=== PATIENT | female | born 1945 | race Caucasian/White ===

== ENCOUNTER → 2023-06-12 07:06 | Outpatient (REF) | payer MEDICARE, OTHER, SELFPAY ==
[2023-06-12 09:07] LABS: ALT (SGPT) 19 U/L (0-35); AST (SGOT) 24 U/L (14-36); Albumin 4.2 g/dl (3.5-5.0); Alkaline Phosphatase 72 U/L (38-126); Blood Urea Nitrogen 17 mg/dl (7-17); Calcium 9.6 mg/dl (8.4-10.2); Carbon Dioxide 28 mmol/L (22-30); Chloride 102 mmol/L (98-107); Glucose 113 mg/dl (70-99); HDL Cholesterol 70 mg/dl; LDL Cholesterol, Calculated 60 mg/dl; Potassium 4.5 mmol/L (3.5-5.1); Sodium 138 mmol/L (135-145); Total Bilirubin 0.7 mg/dl (0.2-1.3); Total Cholesterol 158 mg/dl (50-199); Total Protein 6.7 g/dl (6.3-8.2); Triglyceride 141 mg/dl (10-149); Very Low Density Lipoprotein 28 mg/dl (0-30); eGFR > 60.00
[2023-06-12 09:34] LABS: Glycohemoglobin (HgbA1c) 5.7 % (4.0-5.6)
== END ==
LOC: RAD 07:06
PROVIDERS: ATTENDING PHYSICIAN Family Medicine
DX: M79.672 Pain in left foot (principal); R73.01 Impaired fasting glucose; E78.2 Mixed hyperlipidemia
CPT/HCPCS: 36415; 73630; 80053; 80061; 83036

== ENCOUNTER 2023-09-25 14:48 | Emergency (ER) | payer MEDICARE, OTHER, SELFPAY ==
[2023-09-25 14:49] VITALS: BP 148/80
--- NOTE | 2023-09-25 15:44 | ED.GENMED ---
History of Present Illness
General
Chief Complaint: Abdominal Pain
Source: patient and spouse
Time Seen by Provider: 09/25/23 15:23
Travel History
Have you had any contact with someone who has COVID-19?: No
Do you have any symptoms of coronavirus? Fever > 100 degrees, chills, cough, shortness of breath, sore throat, loss of taste or smell, muscle aches, or headache?: No
History of Present Illness
History of Present Illness:
This patient is a 78-year-old female presents emergency department complaints of pain in the left mid quadrant that started yesterday and continues today. This is associated with nausea but denies vomiting, chills, chest pain, shortness of breath,
new back pain, urinary symptoms. She does state that she feels constipated although she did have a small bowel movement today after taking laxatives. She denies black stool or blood in her stool. She describes the pain as 'shooting' lasting just
a few seconds and then going away. This is unpredictable, without specific provoking or relieving factors. She notes that she is due to get a colonoscopy in a few weeks and does recall a history of diverticulosis.
Past History
Past History
ED Past Medical History: GERD, Hypercholesterolemia and Other (Arthritis)
ED Past Surgical History: Cholecystectomy, Gynecological and Orthopedic (Right knee replacment)
Social History
Tobacco: Non-smoker
Alcohol: None
Drug: None
Personal:
Living: with family
Family History
Family History: Other (Noncontributory)
Phy Exam
Physical Exam
Physical Exam:
GENERAL: Alert , in no apparent distress
EYE: pupils equal and reactive
NECK: Supple, no significant adenopathy.
ENT: o/p clr, mmm.
CARDIAC: Regular rate and rhythm .
LUNGS: Clear breath sounds bilaterally, no acute respiratory distress, no wheezes/rales/rhonchi
ABDOMEN: Soft, moderate left mid and lower quadrant tenderness, no r/g, no cvat
NEUROLOGICAL: Alert and oriented, no focal neuro deficits
SKIN: Warm and dry, skin intact.
MUSCULOSKELETAL: No edema, well perfused.
PSYCH: Normal and appropriate interaction.
Course
Orders/Labs/Results
Orders:
Orders
09/25/23 15:44
CT Abd/Pel (IV only)-DH only Urgent
Comment:
Reason For Exam: lmq/llq abd pain
09/25/23 15:51
Complete Blood Count/No Diff Urgent
Comprehensive Metabolic Panel Urgent
Lipase Urgent
09/25/23 17:29
Urinalysis Reflex To Culture Urgent
Date Specimen was Collected: 09/25/23
Time Specimen was Collected: 17:05
09/25/23 18:06
LevoFLOXacin [Levaquin] 750 mg PO NOW STA
MetroNIDAZOLE [Flagyl] 500 mg PO NOW STA
Abnormal Lab Results
09/25/23 09/25/23
15:51 17:29
MCH 31.4 H pg
(27.0-31.0)
Glucose 101 H mg/dl
(70-99)
Urine Ketones 1+ A
(Negative)
09/25/23 15:51
09/25/23 15:51
Vital Signs
Initial and Last Documented VS:
Initial Vital Signs
Temp Pulse Resp BP Pulse Ox
99.0 F 95 20 148/80 97
09/25/23 14:49 09/25/23 14:49 09/25/23 14:49 09/25/23 14:49 09/25/23 14:49
Last Documented Vital Signs
Temp Pulse Resp BP Pulse Ox
99.0 F 95 20 148/80 97
09/25/23 14:49 09/25/23 14:49 09/25/23 14:49 09/25/23 14:49 09/25/23 14:49
*Critical Care Note
Total Time (30-74mins, 75-104mins- exclusive of procedures): Not Applicable
Update Note
Update Note:
Patient presents to the Emergency Department with ___abdominal pain and
Number and Complexity of Problems Addressed at the Encounter
� Chronic conditions affecting care:
� Acute Exacerbation and/or Progression of Chronic Illness:
� Differential Diagnosis includes: But not limited to diverticulitis, kidney stone, colitis, constipation, etc. etc.
Amount and/or Complexity of Data to be Reviewed and Analyzed
� I performed an independent evaluation of and my interpretation is:
EKG:
CT:Acute uncomplicated diverticulitis of the descending colon.
Xrays:
Laboratory Studies:unremarkable
Other:
� Review of other/old records reveals:
� Clinical information was obtained by an independent historian:
� Prescriptions/Medications Considered but not given:
� Further testing considered but not performed:
Risk of Complications and/or Morbidity or Mortality of Patient Management
� Social determinants of health affecting care:
� Discussion with other providers (PCP, Hospitalists, Consultants, etc):
� Escalation of care including admission/observation vs risk of discharge considered: Discussed with patient and her diagnosis, management plan, reasons to return to the ER, and importance of GI follow-up including
diagrams. Patient eager to go home and can take p.o. medications.
ED Attending Note
-
Portions of this chart may have been created with voice recognition software.� Occasional wrong word or��sound alike� substitutions may have occurred due to the inherent limitations of voice recognition software.
Discharge Plan
Departure
Patient Disposition: Home (Routine Discharge)
Date of Disposition: 09/25/23
Time of Disposition: 18:07
Patient with high blood pressure during this ER visit?: Yes
Condition: Good
Discharge Problem:
Diverticulitis
Instructions: Diverticulitis (DC), BLOOD PRESSURE
Prescriptions:
New
levofloxacin 750 mg tablet
750 mg PO DAILY 10 Days Qty: 10 0RF
metronidazole 500 mg tablet
500 mg PO TID Qty: 30 0RF
No Action
rosuvastatin 10 MG tablet
10 mg PO QPM
doxycycline hyclate 50 MG capsule
50 mg PO DAILY
omeprazole 40 MG capsule,delayed release(DR/EC)
40 mg PO DAILY
estradiol [Divigel] 1 GM gel in packet
1 applic VAG SUWE
melatonin 5 MG tablet
10 mg PO HS
cannabidiol [Epidiolex] 1 UNIT solution
1 unit PO HS PRN (Reason: SLEEP)
mupirocin 1 APPLIC ointment
1 applic intranasal BID Qty: 1 0RF
Patient Comments:
pt states she started as ordered 01/27 and did own dose this am at 0530
sennosides [senna] 1 TABLET tablet
2 tab PO BID 0RF
lidocaine [Aspercreme (lidocaine)] 1 PATCH adhesive patch,medicated
2 patch topical DAILY Qty: 14 0RF
Rx Instructions:
Over the counter. Remove nightly.
Apply to sides of right knee. Do not place over incision.
aspirin 325 MG tablet
325 mg PO DAILY Qty: 28 0RF
Rx Instructions:
Take daily x4 weeks for blood clot prevention.
diazepam 2 MG tablet
2 mg PO HSPRN PRN (Reason: insomnia) Qty: 7 0RF
Rx Instructions:
Caution with Tramadol - can cause drowsiness.
docusate sodium 100 MG capsule
100 mg PO BID 0RF
tramadol 50 MG tablet
50 mg PO Q6HPRN PRN (Reason: moderate-severe pain) Qty: 30 0RF
Rx Instructions:
1 tab moderate pain or 2 if pain severe
Dx joint replacement
ongoing therapy
celecoxib 200 MG capsule
200 mg PO DAILY Qty: 30 0RF
Rx Instructions:
Take with food.
Do not take within 2 hours of Aspirin.
ondansetron HCl 4 MG tablet
4 mg PO Q6HPRN PRN (Reason: nausea) Qty: 20 0RF
Rx Instructions:
Take 1/2 hour prior to Tramadol if experiencing recurrent nausea.
acetaminophen 650 MG tablet
1,300 mg PO Q8H Qty: 30 0RF
Rx Instructions:
Do not exceed >4000 mg daily.
ascorbic acid (vitamin C) [Vitamin C] 500 MG tablet
1,000 mg PO BID Qty: 56 0RF
zinc sulfate 220 MG capsule
220 mg PO DAILY Qty: 14 0RF
cholecalciferol (vitamin D3) 1,000 UNITS tablet
2,000 units PO DAILY Qty: 28 0RF
tramadol 50 mg tablet
50 mg PO Q8H PRN (Reason: Pain) Qty: 20 0RF
Referrals:
Brock Pond DO [Family Provider] -
Activity Restrictions/Additional Instructions:
PLEASE CONTACT YOUR GI DOCTOR TOMORROW FOR CLOSE FOLLOW-UP. IF YOU DEVELOP VOMITING, FEVER, CHEST PAIN, INCREASING NEW OR PERSISTENT ABDOMINAL PAIN, BLEEDING, OR OTHER WORRISOME SIGNS, PLEASE RETURN TO THE ER IMMEDIATELY.
Interventions
Interventions:
*Risk Screen - Suicide Last Done: 09/25/23 14:49
*General Assessment Last Done: 09/25/23 14:49
*Neglect/Abuse Screening Last Done: 09/25/23 14:49
*ED COVID-19 Vaccine History Last Done: 09/25/23 15:55
YY-Fcwfir-Fnrqygjxbp Assessment Last Done: 09/25/23 15:55
Discharge Date and Time
Print Language: BURKINAN
[2023-09-25 16:04] LABS: Hematocrit 38.5 % (37.0-47.0); Hemoglobin 13.3 g/dL (12.0-16.0); Mean Corp Hgb Conc. 34.5 g/dL (33.0-37.0); Mean Corpuscular Hgb 31.4 pg (27.0-31.0); Mean Corpuscular Volume 90.8 fL (81.0-99.0); Mean Platelet Volume 9.4 fL (7.4-10.4); Platelet Count 207 10^3/uL (130-400); Red Blood Cell Count 4.24 10^6/uL (4.20-5.40); Red Cell Dist. Width 14.3 % (11.5-14.5); White Blood Cell Count 9.3 10^3/uL (4.8-10.8)
[2023-09-25 16:18] LABS: ALT (SGPT) 20 U/L (0-35); AST (SGOT) 31 U/L (14-36); Albumin 4.4 g/dl (3.5-5.0); Alkaline Phosphatase 73 U/L (38-126); Blood Urea Nitrogen 13 mg/dl (7-17); Calcium 9.6 mg/dl (8.4-10.2); Carbon Dioxide 24 mmol/L (22-30); Chloride 103 mmol/L (98-107); Glucose 101 mg/dl (70-99); Lipase 46 U/L (23-300); Potassium 4.4 mmol/L (3.5-5.1); Sodium 135 mmol/L (135-145); Total Bilirubin 0.8 mg/dl (0.2-1.3); Total Protein 7.1 g/dl (6.3-8.2); eGFR > 60.00
[2023-09-25 17:35] LABS: Urine Albumin Negative (Neg - Trace); Urine Bilirubin Negative (Negative); Urine Character Clear (Clear); Urine Color Yellow; Urine Glucose Negative (Negative); Urine Ketone 1+ (Negative); Urine Leukocyte Negative (Negative); Urine Nitrite Negative (Negative); Urine Occult Blood Negative (Negative); Urine Urobilinogen Negative (Neg - 1+)
[2023-09-25] MEDS: FLAGYL 500 MG PO (18:27)
[2023-09-25] MEDS: LEVAQUIN 750 MG PO (18:27)
[2023-09-25 18:32] VITALS: BP 116/52
== END 2023-09-25 18:37 | disposition home or self-care (01) ==
LOC: EMR 14:48
PROVIDERS: EMERGENCY PHYSICIAN Emergency Medicine; FAMILY PHYSICIAN Family Medicine
DX: K57.32 Diverticulitis of large intestine without perforation or abscess without bleeding (principal); R03.0 Elevated blood-pressure reading, without diagnosis of hypertension
CPT/HCPCS: 99285; 74177; 80053; 81003; 83690; 85027; Q9967

== ENCOUNTER → 2023-09-30 13:36 | Outpatient (REF) | payer MEDICARE, OTHER, SELFPAY | LOC: RCS 13:36 | PROVIDERS: ATTENDING PHYSICIAN Internal Medicine Cardiovascular Disease; FAMILY PHYSICIAN Family Medicine | DX: I34.0 Nonrheumatic mitral (valve) insufficiency (principal); R53.83 Other fatigue | CPT/HCPCS: 93306 ==

== ENCOUNTER → 2023-10-17 09:56 | Outpatient (REF) | payer MEDICARE, OTHER, SELFPAY | LOC: HWRAD 09:56 | PROVIDERS: ATTENDING PHYSICIAN Internal Medicine Gastroenterology; FAMILY PHYSICIAN Family Medicine | DX: K57.92 Diverticulitis of intestine, part unspecified, without perforation or abscess without bleeding (principal) | CPT/HCPCS: 74177; Q9967 ==

== ENCOUNTER 2023-11-07 11:37 | Emergency (ER) | payer MEDICARE, OTHER, SELFPAY ==
[2023-11-07 11:39] VITALS: BP 164/74
[2023-11-07 11:47] LABS: Glucose - Point of Care 105 mg/dl (70-99)
[2023-11-07 12:31] VITALS: BP 135/64
[2023-11-07 12:43] LABS: Hematocrit 38.2 % (37.0-47.0); Hemoglobin 12.8 g/dL (12.0-16.0); Mean Corp Hgb Conc. 33.5 g/dL (33.0-37.0); Mean Corpuscular Hgb 30.8 pg (27.0-31.0); Mean Platelet Volume 9.2 fL (7.4-10.4); Platelet Count 194 10^3/uL (130-400); Red Blood Cell Count 4.15 10^6/uL (4.20-5.40); Red Cell Dist. Width 13.4 % (11.5-14.5); White Blood Cell Count 6.2 10^3/uL (4.8-10.8)
[2023-11-07 13:00] VITALS: BP 128/67
[2023-11-07 13:07] LABS: ALT (SGPT) 18 U/L (0-35); AST (SGOT) 26 U/L (14-36); Albumin 4.5 g/dl (3.5-5.0); Alkaline Phosphatase 86 U/L (38-126); Blood Urea Nitrogen 16 mg/dl (7-17); Calcium 9.6 mg/dl (8.4-10.2); Carbon Dioxide 26 mmol/L (22-30); Chloride 104 mmol/L (98-107); Glucose 110 mg/dl (70-99); Potassium 4.2 mmol/L (3.5-5.1); Sodium 135 mmol/L (135-145); Total Bilirubin 0.5 mg/dl (0.2-1.3); eGFR > 60.00
--- NOTE | 2023-11-07 13:48 | ED.GENMED ---
History of Present Illness
General
Chief Complaint: Dizziness
Source: patient and spouse
Exam Limitations: none
Time Seen by Provider: 11/07/23 12:51
Nursing documentation reviewed up to this point in time: agreed with
History of Present Illness
History of Present Illness:
78-year-old female with past medical history of hyperlipidemia, chronic pain (she says related to arthritis) who presents for evaluation of headache, dizziness, visual disturbance. Patient reports that she was in her normal state of health until
just prior to arrival�she says that she was sitting in the car waiting for her to come out of the store. She says that she had rather abrupt onset of visual disturbance in the left eye�she says that she had a dark spot in her vision. She
says that she had associated bilateral temporal headache. She says she began to feel dizzy. She says that she felt numbness and tingling in her left arm. She did not notice any weakness in the extremities. She says that when her came out
of the store she asked him to bring her to the hospital. Total duration of the episode was roughly an hour. By the time of my assessment she says her symptoms have resolved. She denies having had similar symptoms in the past. She denies any
history of jaw claudication. She denies any recent fevers or chills. She denies any other complaints today.
Past History
Past History
ED Past Medical History: GERD, Hypercholesterolemia and Other (Arthritis)
ED Past Surgical History: Cholecystectomy, Gynecological and Orthopedic (Right knee replacment)
Social History
Tobacco: Non-smoker
Alcohol: None
Drug: None
Personal:
Living: with family
Family History
Family History: Other (Noncontributory)
Review of Systems
Review of Systems
All Other Systems: ROS reviewed and negative except as documented in HPI and ROS
Constitutional: Denies fever or chills
EENT: Denies sore throat or runny nose
Respiratory: Denies cough or trouble breathing
Cardiac: Denies chest pain or palpitations
ABD/GI: Denies abdominal pain, nausea or vomiting
: Denies flank pain
Musculoskeletal: Reports joint pain (Chronic) and neck pain (Chronic)
Neurological: Reports dizzy, headache, numbness and other (Visual disturbance); Denies weakness
Phy Exam
Physical Exam
Physical Exam:
General: Awake, alert, oriented x3; no acute distress
Head: Normocephalic, atraumatic
Eyes: Conjunctiva normal, EOMI, pupils equal round and reactive to light bilaterally, visual flores are intact
Throat: Airway intact, handling secretions
Neck: Trachea midline, full range of motion of neck, supple without meningismus
Lungs: Clear to auscultation bilaterally, no wheezing, rales, rhonchi
Heart: Regular rate and rhythm, no murmurs, gallops, or rubs
Abd: Soft, non distended, nontender
Neuro: Cranial nerves intact 2 through 12, speech fluent no dysarthria or aphasia, no limb ataxia, motor and sensory function intact and symmetric upper and lower extremities
Skin: no rash
Extremities: No edema in extremities, equal pulses in all extremities
Scores
NIH Stroke Score
Level of Consciousness: 0 - Alert
LOC Questions: 0-Answers both correctly
LOC Commands: 0-Performs both correctly
Best Horizontal Gaze: 0-Normal
Visual Flores: 0=Normal, no visual loss
Facial Palsy: 0=Normal, symmetrical
Motor - Right Arm: 0=No drift 10 seconds
Motor - Left Arm: 0=No drift 10 seconds
Motor - Right Le-No drift 5 seconds
Motor - Left Le-No drift 5 seconds
Limb Ataxia: 0-Absent
Sensation: 0-Normal
Best Language: 0-No aphasia
Dysarthria: 0-Normal
Extinction and Inattention: 0-No abnormality
Total Score:: 0
Heart Failure Risk
Heart Failure Risk Score: Not Applicable
Heart Score for Chest Pain Patients
STEMI patient?: Not applicable
Withdrawal Assessment of Alcohol
Withdrawal Assessment Completed?: Not applicable
Course
Orders/Labs/Results
Orders:
Orders
11/07/23 11:42
Electrocardiogram (*1) Urgent
Reason for Study: Vertigo / Dizzy
EKG- Treatment ONCE
11/07/23 12:35
Complete Blood Count/No Diff Urgent
Comprehensive Metabolic Panel Urgent
11/07/23 13:42
CT Head W/o Iv Contrast Urgent
Comment:
Reason For Exam: visual disturbance (?central scotoma), LUE numbnes
Visual Acuity- Treatment ONCE
11/07/23 13:49
ESR [Erythrocyte Sed Rate] Urgent
Lyme PCR, DNA [S] Urgent
11/07/23 13:55
Ketorolac [Toradol] 15 mg IV NOW STA
11/07/23 14:29
Valproate Sodium [Depacon] 500 mg 0.9% Sodium Chloride 50 ml [Nss] 50 ml IV NOW
Abnormal Lab Results
11/07/23 11/07/23
11:46 12:35
RBC 4.15 L 10^6/uL
(4.20-5.40)
Glucose 110 H mg/dl
(70-99)
POC Glucose 105 H mg/dl
(70-99)
11/07/23 12:35
11/07/23 12:35
Vital Signs
Initial and Last Documented VS:
Initial Vital Signs
Temp Pulse Resp BP Pulse Ox
36.9 C 72 18 164/74 98
11/07/23 11:39 11/07/23 11:39 11/07/23 11:39 11/07/23 11:39 11/07/23 11:39
Last Documented Vital Signs
Temp Pulse Resp BP Pulse Ox
36.9 C 75 18 141/79 97
11/07/23 11:39 11/07/23 16:00 11/07/23 16:00 11/07/23 16:00 11/07/23 16:00
MDM/Problems Addressed
Differential Diagnosis Includes:
TIA/CVA, migraine, seizure, temporal arteritis, brain mass, hemorrhage
MDM/Problems Addressed:
78-year-old female presents for evaluation after an episode of visual disturbance, headache, dizziness and left upper extremity paresthesias that lasted for about an hour and have completely resolved. She was hypertensive in triage vital signs
normalized by my assessment. Physical exam as above. Plan to place an IV check labs including a CBC and a CMP. Will check CT head. Check an ESR. Check an EKG. Case discussed with neurology for assessment.
Labs reviewed: CBC and CMP unremarkable. ESR normal. CT head negative for any acute pathology. Neurology evaluated patient, discussed with neurology at bedside�clinical suspicion is for migraine. Recommended treating with Depakote and if
improved can discharge on amitriptyline.
Clinical reassessment after Depakote patient says headache has greatly improved she is feeling much better after ED treatment. Vital signs stable. Will discharge on amitriptyline and have her follow-up with neurology and PCP as an outpatient.
Patient is very comfortable with this plan.
Acute Exacerbation and/or Progression of Chronic Illness:
Acutely hypertensive resolved without intervention continue to monitor but no additional antihypertensive indicated at present
Acute Exacerbation and/or Progression of Chronic Illness: HTN
*Radiology
Radiology exam reviewed: radiology read reviewed
*Pulse Oximetry
Patient hypoxic: no
*EKG
Interpreted by ED Provider?: Yes
Heart Rate: 68
Rate: normal
Rhythm: sinus
Story: normal axis
Interval: normal interval
QRS Pattern: normal QRS
Ischemia: no ischemia
*Critical Care Note
Total Time (30-74mins, 75-104mins- exclusive of procedures): Not Applicable
Data Reviewed
Review of Other/Old Records Reveals: Labs and Records
Source: patient, records and spouse
Patient Management
Discussion with other providers: [employer]ing Machine Tender (Discussed with neurologist)
ED Attending Note
-
Portions of this chart may have been created with voice recognition software.� Occasional wrong word or��sound alike� substitutions may have occurred due to the inherent limitations of voice recognition software.
Discharge Plan
Departure
Patient Disposition: Home (Routine Discharge)
Date of Disposition: 11/07/23
Time of Disposition: 16:12
Patient with high blood pressure during this ER visit?: Yes
Discharge Problem:
Migraine
Instructions: Migraine in adults
Prescriptions:
New
amitriptyline 10 mg tablet
10 mg PO DAILY Qty: 30 0RF
No Action
rosuvastatin 10 MG tablet
10 mg PO QPM
doxycycline hyclate 50 MG capsule
50 mg PO DAILY
omeprazole 40 MG capsule,delayed release(DR/EC)
40 mg PO DAILY
estradiol [Divigel] 1 GM gel in packet
1 applic VAG SUWE
melatonin 5 MG tablet
10 mg PO HS
cannabidiol [Epidiolex] 1 UNIT solution
1 unit PO HS PRN (Reason: SLEEP)
mupirocin 1 APPLIC ointment
1 applic intranasal BID Qty: 1 0RF
Patient Comments:
pt states she started as ordered 01/27 and did own dose this am at 0530
sennosides [senna] 1 TABLET tablet
2 tab PO BID 0RF
lidocaine [Aspercreme (lidocaine)] 1 PATCH adhesive patch,medicated
2 patch topical DAILY Qty: 14 0RF
Rx Instructions:
Over the counter. Remove nightly.
Apply to sides of right knee. Do not place over incision.
aspirin 325 MG tablet
325 mg PO DAILY Qty: 28 0RF
Rx Instructions:
Take daily x4 weeks for blood clot prevention.
diazepam 2 MG tablet
2 mg PO HSPRN PRN (Reason: insomnia) Qty: 7 0RF
Rx Instructions:
Caution with Tramadol - can cause drowsiness.
docusate sodium 100 MG capsule
100 mg PO BID 0RF
tramadol 50 MG tablet
50 mg PO Q6HPRN PRN (Reason: moderate-severe pain) Qty: 30 0RF
Rx Instructions:
1 tab moderate pain or 2 if pain severe
Dx joint replacement
ongoing therapy
celecoxib 200 MG capsule
200 mg PO DAILY Qty: 30 0RF
Rx Instructions:
Take with food.
Do not take within 2 hours of Aspirin.
ondansetron HCl 4 MG tablet
4 mg PO Q6HPRN PRN (Reason: nausea) Qty: 20 0RF
Rx Instructions:
Take 1/2 hour prior to Tramadol if experiencing recurrent nausea.
acetaminophen 650 MG tablet
1,300 mg PO Q8H Qty: 30 0RF
Rx Instructions:
Do not exceed >4000 mg daily.
ascorbic acid (vitamin C) [Vitamin C] 500 MG tablet
1,000 mg PO BID Qty: 56 0RF
zinc sulfate 220 MG capsule
220 mg PO DAILY Qty: 14 0RF
cholecalciferol (vitamin D3) 1,000 UNITS tablet
2,000 units PO DAILY Qty: 28 0RF
tramadol 50 mg tablet
50 mg PO Q8H PRN (Reason: Pain) Qty: 20 0RF
levofloxacin 750 mg tablet
750 mg PO DAILY 10 Days Qty: 10 0RF
metronidazole 500 mg tablet
500 mg PO TID Qty: 30 0RF
Referrals:
Brock Pond DO [Family Provider] -
Cj Garza MD [Active] - Call in 1-3 days for appt
Activity Restrictions/Additional Instructions:
Thank you for visiting the Emergency Department at [facility].
1. Please schedule a follow up appointment as directed. Call first thing tomorrow morning to make an appointment.
2. If indicated, please take your medications as instructed and indicated on discharge paperwork.
3. If any of your symptoms do not improve, or persist, or become more severe within 6-12 hours, please return to the emergency department for further care.
4. Please return to the emergency department if you develop a headache, neck pain/stiffness, fever greater than 100.4F, chest pain, shortness of breath, persistent nausea, vomiting, slurred speech, difficulty walking, numbness/tingling, weakness,
signs of infection or any other symptoms that are worrisome to you.
Please call [phone] if you have any questions.
Interventions
Interventions:
*Risk Screen - Suicide Last Done: 11/07/23 13:38
*General Assessment Last Done: 11/07/23 11:39
*Neglect/Abuse Screening Last Done: 11/07/23 13:38
ED- Fall Risk Assessment Last Done: 11/07/23 13:38
*ED COVID-19 Vaccine History Last Done: 11/07/23 11:39
ED- Neurological Assessment Last Done: 11/07/23 13:37
ED- Cardiac Assessment Last Done: 11/07/23 13:38
Discharge Date and Time
Print Language: [place]
[2023-11-07] MEDS: TORADOL 15 MG IV (13:58)
[2023-11-07 14:17] LABS: Erythrocyte Sed Rate 20 mm/hour (0-20)
[2023-11-07] MEDS: DEPACON 55 MG IV (15:09)
[2023-11-07 15:15] VITALS: BP 132/103
[2023-11-07 15:30] VITALS: BP 130/67
[2023-11-07 16:00] VITALS: BP 141/79
== END 2023-11-07 16:22 | disposition home or self-care (01) ==
LOC: EMR 11:37
PROVIDERS: Physician Assistant; EMERGENCY PHYSICIAN Emergency Medicine; FAMILY PHYSICIAN Family Medicine
DX: G43.909 Migraine, unspecified, not intractable, without status migrainosus (principal); R42 Dizziness and giddiness; E78.00 Pure hypercholesterolemia, unspecified; K21.9 Gastro-esophageal reflux disease without esophagitis; M19.90 Unspecified osteoarthritis, unspecified site; I10 Essential (primary) hypertension; R20.0 Anesthesia of skin; G89.29 Other chronic pain; Z90.49 Acquired absence of other specified parts of digestive tract
CPT/HCPCS: 99284; 96374; 96361; 70450; 80053; 82962; 85027; 85652; 87476; 93005

== ENCOUNTER 2023-11-24 18:19 | Emergency (ER) | payer MEDICARE, OTHER, SELFPAY ==
[2023-11-24 18:20] VITALS: BP 182/105; BMI 25.8
[2023-11-24 18:36] LABS: % Basophils 0.4 % (0-2); % Eosinophils 1.5 % (0-6); % Immature Granulocytes 0.2 % (0-0.5); % Lymphocytes 22.1 % (20.5-51.1); % Monocytes 8.3 % (1.7-9.3); % Neutrophils 67.5 % (42.2-75.2); Absolute Eosinophils 0.2 10^3/uL (0-0.7); Absolute Lymphocytes 2.4 10^3/uL (1.2-3.4); Absolute Monocytes 0.9 10^3/uL (0.1-0.6); Absolute Neutrophils 7.2 10^3/uL (1.4-6.5); Hemoglobin 13.3 g/dL (12.0-16.0); Mean Corpuscular Hgb 31.1 pg (27.0-31.0); Mean Corpuscular Volume 88.8 fL (81.0-99.0); Mean Platelet Volume 9.1 fL (7.4-10.4); Nucleated Red Blood Cells % 0 %; Platelet Count 200 10^3/uL (130-400); Red Blood Cell Count 4.28 10^6/uL (4.20-5.40); Red Cell Dist. Width 13.3 % (11.5-14.5); White Blood Cell Count 10.6 10^3/uL (4.8-10.8)
[2023-11-24 18:54] LABS: ALT (SGPT) 19 U/L (0-35); AST (SGOT) 28 U/L (14-36); Albumin 4.7 g/dl (3.5-5.0); Alkaline Phosphatase 74 U/L (38-126); Blood Urea Nitrogen 15 mg/dl (7-17); Calcium 9.8 mg/dl (8.4-10.2); Carbon Dioxide 27 mmol/L (22-30); Chloride 97 mmol/L (98-107); Estimated Creatinine Clearance 53 ml/min; Glucose 106 mg/dl (70-99); Lipase 55 U/L (23-300); Potassium 4.3 mmol/L (3.5-5.1); Sodium 133 mmol/L (135-145); Total Protein 7.1 g/dl (6.3-8.2); eGFR > 60.00
--- NOTE | 2023-11-24 18:59 | ED.GENMED ---
History of Present Illness
General
Chief Complaint: Abdominal Pain
Source: patient and spouse
Exam Limitations: none
Time Seen by Provider: 11/24/23 18:46
History of Present Illness
History of Present Illness:
This is a 78 year old female that comes in with c/o abd pain. States that she started wth lower abd pain on the left side and when she pushes on the left it shoots into the low back. States that this started a couple of days ago but today it was
worse. States that she is constipated and that she took Senokot last night and the night before and it has not helped states that she had a fever of 101 and then 10min latera he took it again and was gone. States that she is nauseated and
has a headache. States that she occasionally has urinary burning. Denies any chills, chest pain, SOB, vomiting, diarrhea, dizziness.
Past History
Past History
ED Past Medical History: Cancer (Skin CA), GERD, Hypercholesterolemia, Psychiatric (Anxiety, Depression, ) and Other (Arthritis, Diverticulitis, Back pain, Tinging arms and legs. Migraines, Spinal cyst, AAA, UTI, Rosacea)
ED Past Surgical History: Cholecystectomy, Gynecological (Tubal, ), Orthopedic (Right knee replacement, Neck and facial surgery, Spinal fusion) and Other
Social History
Tobacco: Non-smoker
Alcohol: None
Drug: None
Personal:
Living: with family
Family History
Family History: Other (Noncontributory)
Review of Systems
Review of Systems
All Other Systems: ROS reviewed and negative except as documented in HPI and ROS
Constitutional: Reports fever; Denies chills
EENT: Reports no symptoms
Respiratory: Reports no symptoms; Denies cough or trouble breathing
Cardiac: Reports no symptoms; Denies chest pain
ABD/GI: Reports abdominal pain, nausea and constipated; Denies vomiting or diarrhea
: Reports dysuria (Occasional); Denies frequency or urgency
Musculoskeletal: Reports back pain (Low back)
Skin: Reports no symptoms
Neurological: Reports headache; Denies dizzy
Psychiatric: Reports no symptoms
Phy Exam
General Physical Exam
General Presentation: no apparent distress
General age: appears stated age
General Skin: warm and dry
General Habitus: elderly
General Mental: alert
General Hydration: appears well hydrated
ENT Exam
ENT Exam: TM's normal, pharynx normal and neck supple
Eye Exam
Eye Exam: EOMI
Cardiovascular Exam
Cardiovascular Exam: regular rate/rhythm, no edema and normal peripheral pulses
Pulmonary Exam
Pulmonary Exam: lungs clear, no respiratory distress, no rales, chest non tender, no crackles, no rhonchi, no wheezing and no cough
Gastrointestinal Exam
Gastrointestinal Exam: normal bowel sounds, soft, no organomegaly, no pulsatile mass, non distended and tender (LLQ tenderness with palpation)
Musculoskeletal Exam
Musculoskeletal Exam: full ROM and no edema
Skin Exam
Skin Exam: normal color, warm/dry, no rash and no petechia
Psychiatric Exam
Psychiatric Exam: normal mood/affect
Course
Orders/Labs/Results
Orders:
Orders
11/24/23 18:23
Obstruct Series W/PA Chest [CR Obstruct Series W/pa Chest] Urgent
Comment:
Reason For Exam: pain
11/24/23 18:26
Complete Blood Count/With Diff Urgent
Comprehensive Metabolic Panel Urgent
Lipase Urgent
11/24/23 18:58
0.9% Sodium Chloride 1000 ml [Nss] 1,000 ml IV BOLUS
11/24/23 18:59
CT Abd/pelvis W Iv Cont Urgent
Comment: History of diverticulitis
Reason For Exam: Lower abd pain
11/24/23 19:03
Ketorolac [Toradol] 30 mg IV NOW STA
Ondansetron Injectable [Zofran] 4 mg IV NOW STA
11/24/23 21:01
Urinalysis Reflex To Culture Urgent
Date Specimen was Collected: 11/24/23
Time Specimen was Collected: 20:59
Urine Microscopic Reflex Cult Urgent
Abnormal Lab Results
11/24/23 11/24/23
18:26 21:01
MCH 31.1 H pg
(27.0-31.0)
Absolute Neuts (auto) 7.2 H 10^3/uL
(1.4-6.5)
Absolute Monos (auto) 0.9 H 10^3/uL
(0.1-0.6)
Sodium 133 L mmol/L
(135-145)
Chloride 97 L mmol/L
(98-107)
Glucose 106 H mg/dl
(70-99)
Leukocyte Esterase Rfl Trace A
(Negative)
11/24/23 18:26
11/24/23 18:26
Sodium slightly low. Glucose nonfasting. Lipase normal at 55
Vital Signs
Initial and Last Documented VS:
Initial Vital Signs
Temp Pulse Resp BP Pulse Ox
99 F 88 16 182/105 99
11/24/23 18:20 11/24/23 18:20 11/24/23 18:20 11/24/23 18:20 11/24/23 18:20
Last Documented Vital Signs
Temp Pulse Resp BP Pulse Ox
99 F 88 16 133/92 95
11/24/23 18:20 11/24/23 18:20 11/24/23 18:20 11/24/23 21:02 11/24/23 21:15
MDM/Problems Addressed
Differential Diagnosis Includes:
Diverticulitis, Diverticulitis with abscess
MDM/Problems Addressed:
This is a 78 year old female that comes in with c/o lower abd pain that goes into her back. States that she also has occasional burning with urination.
Will get labs, CT scan Medicate for pain and nausea and give IV fluids.
Back into see patient. Explained that her CT shows she has diverticulitis. Will place patient on Augmentin as she did not tolerate the Levaquin and Flagyl in the past. Patient has an appointment for a Colonoscopy in 2 weeks. Patient to follow up
with the family doctor and the GI specialist for further evaluation. Return with fever, increased or changing rider.
Chronic conditions affecting care:
Diverticulitis,
Acute Exacerbation and/or Progression of Chronic Illness:
Diverticulitis,
*Radiology
Radiology exam reviewed: radiology read reviewed (Obstruction series- No acute cardiopulmonary process. Non-specific bowel gas pattern without signs of obstruction. Mild diffuse colonic stool burden may reflect constipation. CT abd/pelvis- MIld
acute diverticulitis of the sigmoid colon. No perforation or abscess. Other stable chronic findings.)
*Pulse Oximetry
Patient hypoxic: no
*EKG
Interpreted by ED Provider?: NA
Rate: EKG- N/A
*Ophthalmology Surgical Technician Interpretation
Rate: Ophthalmology Surgical Technician- N/A
*Critical Care Note
Total Time (30-74mins, 75-104mins- exclusive of procedures): Not Applicable
ED Attending Note
-
Portions of this chart may have been created with voice recognition software.� Occasional wrong word or��sound alike� substitutions may have occurred due to the inherent limitations of voice recognition software.
Discharge Plan
Departure
Patient Disposition: Home (Routine Discharge)
Date of Disposition: 11/24/23
Time of Disposition: 21:52
Patient with high blood pressure during this ER visit?: Yes
Condition: Good
Covid-19: Not Applicable
Discharge Problem:
Diverticulitis
Instructions: Diverticulitis (DC), BLOOD PRESSURE
Prescriptions:
New
amoxicillin-pot clavulanate 875-125 mg tablet
1 tab PO BID Qty: 19 0RF
No Action
rosuvastatin 10 MG tablet
10 mg PO QPM
doxycycline hyclate 50 MG capsule
50 mg PO DAILY
omeprazole 40 MG capsule,delayed release(DR/EC)
40 mg PO DAILY
estradiol [Divigel] 1 GM gel in packet
1 applic VAG SUWE
melatonin 5 MG tablet
10 mg PO HS
cannabidiol [Epidiolex] 1 UNIT solution
1 unit PO HS PRN (Reason: SLEEP)
mupirocin 1 APPLIC ointment
1 applic intranasal BID Qty: 1 0RF
Patient Comments:
pt states she started as ordered 01/27 and did own dose this am at 0530
sennosides [senna] 1 TABLET tablet
2 tab PO BID 0RF
lidocaine [Aspercreme (lidocaine)] 1 PATCH adhesive patch,medicated
2 patch topical DAILY Qty: 14 0RF
Rx Instructions:
Over the counter. Remove nightly.
Apply to sides of right knee. Do not place over incision.
aspirin 325 MG tablet
325 mg PO DAILY Qty: 28 0RF
Rx Instructions:
Take daily x4 weeks for blood clot prevention.
diazepam 2 MG tablet
2 mg PO HSPRN PRN (Reason: insomnia) Qty: 7 0RF
Rx Instructions:
Caution with Tramadol - can cause drowsiness.
docusate sodium 100 MG capsule
100 mg PO BID 0RF
tramadol 50 MG tablet
50 mg PO Q6HPRN PRN (Reason: moderate-severe pain) Qty: 30 0RF
Rx Instructions:
1 tab moderate pain or 2 if pain severe
Dx joint replacement
ongoing therapy
celecoxib 200 MG capsule
200 mg PO DAILY Qty: 30 0RF
Rx Instructions:
Take with food.
Do not take within 2 hours of Aspirin.
ondansetron HCl 4 MG tablet
4 mg PO Q6HPRN PRN (Reason: nausea) Qty: 20 0RF
Rx Instructions:
Take 1/2 hour prior to Tramadol if experiencing recurrent nausea.
acetaminophen 650 MG tablet
1,300 mg PO Q8H Qty: 30 0RF
Rx Instructions:
Do not exceed >4000 mg daily.
ascorbic acid (vitamin C) [Vitamin C] 500 MG tablet
1,000 mg PO BID Qty: 56 0RF
zinc sulfate 220 MG capsule
220 mg PO DAILY Qty: 14 0RF
cholecalciferol (vitamin D3) 1,000 UNITS tablet
2,000 units PO DAILY Qty: 28 0RF
tramadol 50 mg tablet
50 mg PO Q8H PRN (Reason: Pain) Qty: 20 0RF
levofloxacin 750 mg tablet
750 mg PO DAILY 10 Days Qty: 10 0RF
metronidazole 500 mg tablet
500 mg PO TID Qty: 30 0RF
amitriptyline 10 mg tablet
10 mg PO DAILY Qty: 30 0RF
Referrals:
Brock Pond DO [Family Provider] - Call in 1-3 days for appt
Activity Restrictions/Additional Instructions:
As discussed, your blood work shows your sodium is slightly low. Your CT shows that you have mild Diverticulitis. You have been given your first dose of antibiotic here and you prescription has been sent to the pharmacy. Please take this with food.
Follow up with the GI specialist and the family doctor for recheck. IF YOU HAVE INCREASED OR CHANGING PAIN, FEVER. OR YOU HAVE ANY OTHER CONCERNS PLEASE RETURN TO THE EMERGENCY ROOM.
Interventions
Interventions:
*Risk Screen - Suicide Last Done: 11/24/23 18:20
*General Assessment Last Done: 11/24/23 21:23
*Neglect/Abuse Screening Last Done: 11/24/23 18:20
DG-Pkmmja-Yfvrkfkjwk Assessment Last Done: 11/24/23 21:22
Discharge Date and Time
Print Language: GERMAN
[2023-11-24] MEDS: NSS 1000 IV (19:09)
[2023-11-24] MEDS: TORADOL 30 MG IV (19:15)
[2023-11-24] MEDS: ZOFRAN 4 MG IV (19:16)
[2023-11-24 20:00] VITALS: BP 120/55
[2023-11-24 21:02] VITALS: BP 133/92
[2023-11-24 21:13] LABS: Urine Albumin Negative (Neg - Trace); Urine Bilirubin Negative (Negative); Urine Character Clear (Clear); Urine Color Yellow; Urine Glucose Negative (Negative); Urine Ketone Negative (Negative); Urine Leukocyte Trace (Negative); Urine Nitrite Negative (Negative); Urine Occult Blood Negative (Negative); Urine Urobilinogen Negative (Neg - 1+)
[2023-11-24 21:21] LABS: Urine Red Blood Cell 0-2 /HPF (0-2); Urine White Cell 0-2 /HPF (0-5)
[2023-11-24] MEDS: AUGMENTIN 875 MG/125 MG 1 TABLET PO (22:05)
== END 2023-11-24 22:15 | disposition home or self-care (01) ==
LOC: EMR 18:19
PROVIDERS: Clinical Nurse Specialist Family Health; Student in an Organized Health Care Education/Training Program; EMERGENCY PHYSICIAN Student in an Organized Health Care Education/Training Program; FAMILY PHYSICIAN Family Medicine
DX: K57.32 Diverticulitis of large intestine without perforation or abscess without bleeding (principal); R11.0 Nausea; R30.9 Painful micturition, unspecified; R51.9 Headache, unspecified; K59.00 Constipation, unspecified; R03.0 Elevated blood-pressure reading, without diagnosis of hypertension; K21.9 Gastro-esophageal reflux disease without esophagitis; E78.00 Pure hypercholesterolemia, unspecified; F32.A Depression, unspecified; F41.9 Anxiety disorder, unspecified; I71.40 Abdominal aortic aneurysm, without rupture, unspecified; M19.90 Unspecified osteoarthritis, unspecified site; G43.909 Migraine, unspecified, not intractable, without status migrainosus; Z79.82 Long term (current) use of aspirin; Z96.651 Presence of right artificial knee joint; Z85.828 Personal history of other malignant neoplasm of skin; Z87.440 Personal history of urinary (tract) infections; Z98.1 Arthrodesis status; Z90.49 Acquired absence of other specified parts of digestive tract; Z88.5 Allergy status to narcotic agent
CPT/HCPCS: 99285; 96375; 96361; 96374; 74022; 74177; 80053; 81003; 81015; 83690; 85025; Q9967

== ENCOUNTER → 2024-01-22 06:43 | Day surgery (SDC) | payer MEDICARE, OTHER, SELFPAY ==
[2024-01-22 08:41] LABS: Glucose - Point of Care 93 mg/dl (70-99)
== END ==
LOC: GI 06:43
PROVIDERS: ATTENDING PHYSICIAN Internal Medicine Gastroenterology
DX: K57.30 Diverticulosis of large intestine without perforation or abscess without bleeding (principal); K64.8 Other hemorrhoids; K44.9 Diaphragmatic hernia without obstruction or gangrene; K31.7 Polyp of stomach and duodenum; K31.89 Other diseases of stomach and duodenum; K30 Functional dyspepsia
CPT/HCPCS: 43239; G0121; 88305; 82962; 88342

== ENCOUNTER → 2024-01-30 07:09 | Outpatient (REF) | payer MEDICARE, OTHER, SELFPAY ==
[2024-01-30 08:22] LABS: % Basophils 1.3 % (0-2); % Eosinophils 2.6 % (0-6); % Immature Granulocytes 0.7 % (0-0.5); % Lymphocytes 32.3 % (20.5-51.1); % Monocytes 8.7 % (1.7-9.3); % Neutrophils 54.4 % (42.2-75.2); Absolute Basophils 0.1 10^3/uL (0-0.2); Absolute Eosinophils 0.1 10^3/uL (0-0.7); Absolute Lymphocytes 1.5 10^3/uL (1.2-3.4); Absolute Monocytes 0.4 10^3/uL (0.1-0.6); Absolute Neutrophils 2.5 10^3/uL (1.4-6.5); Hematocrit 40.6 % (37.0-47.0); Hemoglobin 13.4 g/dL (12.0-16.0); Mean Corpuscular Hgb 29.6 pg (27.0-31.0); Mean Corpuscular Volume 89.8 fL (81.0-99.0); Mean Platelet Volume 9.5 fL (7.4-10.4); Nucleated Red Blood Cells % 0 %; Platelet Count 210 10^3/uL (130-400); Red Blood Cell Count 4.52 10^6/uL (4.20-5.40); Red Cell Dist. Width 14.8 % (11.5-14.5); White Blood Cell Count 4.6 10^3/uL (4.8-10.8)
[2024-01-30 08:59] LABS: ALT (SGPT) 21 U/L (0-35); AST (SGOT) 29 U/L (14-36); Albumin 4.8 g/dl (3.5-5.0); Alkaline Phosphatase 71 U/L (38-126); Blood Urea Nitrogen 16 mg/dl (7-17); Calcium 9.8 mg/dl (8.4-10.2); Carbon Dioxide 23 mmol/L (22-30); Chloride 99 mmol/L (98-107); Glucose 94 mg/dl (70-99); HDL Cholesterol 73 mg/dl; LDL Cholesterol, Calculated 115 mg/dl; Potassium 4.8 mmol/L (3.5-5.1); Sodium 136 mmol/L (135-145); Total Bilirubin 0.7 mg/dl (0.2-1.3); Total Cholesterol 239 mg/dl (50-199); Total Protein 7.3 g/dl (6.3-8.2); Triglyceride 258 mg/dl (10-149); Very Low Density Lipoprotein 51 mg/dl (0-30); eGFR 51.75
[2024-01-30 09:05] LABS: Glycohemoglobin (HgbA1c) 5.7 % (4.0-5.6)
[2024-01-30 10:36] LABS: TSH 3.21 uIU/ml (0.47-4.68)
[2024-01-30 10:55] LABS: Vitamin B12 244 pg/ml (239-931)
[2024-01-31 20:58] LABS: Vitamin D 1,25 Dihydroxy 43.4 pg/mL (19.9-79.3)
== END ==
LOC: REG 07:09
PROVIDERS: ATTENDING PHYSICIAN Psychiatry & Neurology Neurology; FAMILY PHYSICIAN Family Medicine
DX: M25.551 Pain in right hip (principal); R73.01 Impaired fasting glucose; E78.2 Mixed hyperlipidemia; E55.9 Vitamin D deficiency, unspecified; K76.0 Fatty (change of) liver, not elsewhere classified; E78.5 Hyperlipidemia, unspecified
CPT/HCPCS: 36415; 73502; 80053; 80061; 82607; 82652; 82728; 83036; 84443; 85025

== ENCOUNTER → 2024-02-21 14:28 | Outpatient (REF) | payer MEDICARE, OTHER, SELFPAY | LOC: WDC 14:28 | PROVIDERS: ATTENDING PHYSICIAN Family Medicine | DX: Z12.31 Encounter for screening mammogram for malignant neoplasm of breast (principal) | CPT/HCPCS: 77063; 77067 ==

== ENCOUNTER → 2024-03-13 12:22 | Outpatient (REF) | payer MEDICARE, OTHER, SELFPAY | LOC: PAVMRI 12:22 | PROVIDERS: ATTENDING PHYSICIAN Nurse Practitioner; FAMILY PHYSICIAN Family Medicine | DX: M54.12 Radiculopathy, cervical region (principal) | CPT/HCPCS: 72156; A9575 ==

== ENCOUNTER 2024-06-05 17:53 | Inpatient (IN) | payer MEDICARE, OTHER, SELFPAY ==
[2024-06-05] VITALS (10 sets, daily range): BP systolic 119–180; BP diastolic 60–117; BMI 25.8
[2024-06-05 11:21] LABS: % Basophils 0.7 % (0-2); % Eosinophils 1.9 % (0-6); % Immature Granulocytes 0.9 % (0-0.5); % Lymphocytes 20.6 % (20.5-51.1); % Monocytes 7.5 % (1.7-9.3); % Neutrophils 68.4 % (42.2-75.2); Absolute Basophils 0.1 10^3/uL (0-0.2); Absolute Eosinophils 0.2 10^3/uL (0-0.7); Absolute Immature Granulocytes 0.1 10^3/uL (0-0.05); Absolute Lymphocytes 2.2 10^3/uL (1.2-3.4); Absolute Monocytes 0.8 10^3/uL (0.1-0.6); Absolute Neutrophils 7.3 10^3/uL (1.4-6.5); Hematocrit 39.9 % (37.0-47.0); Hemoglobin 13.3 g/dL (12.0-16.0); Mean Corp Hgb Conc. 33.3 g/dL (33.0-37.0); Mean Corpuscular Hgb 31.4 pg (27.0-31.0); Mean Corpuscular Volume 94.1 fL (81.0-99.0); Nucleated Red Blood Cells % 0 %; Platelet Count 214 10^3/uL (130-400); Red Blood Cell Count 4.24 10^6/uL (4.20-5.40); Red Cell Dist. Width 14.6 % (11.5-14.5); White Blood Cell Count 10.6 10^3/uL (4.8-10.8)
[2024-06-05 11:35] LABS: Lactic Acid 0.7 mmol/L (0.7-2.0)
[2024-06-05 11:52] LABS: ALT (SGPT) 19 U/L (0-35); AST (SGOT) 26 U/L (14-36); Albumin 4.6 g/dl (3.5-5.0); Alkaline Phosphatase 61 U/L (38-126); Blood Urea Nitrogen 20 mg/dl (7-17); Calcium 9.4 mg/dl (8.4-10.2); Carbon Dioxide 26 mmol/L (22-30); Chloride 100 mmol/L (98-107); Glucose 100 mg/dl (70-99); Lipase 62 U/L (23-300); Potassium 4.2 mmol/L (3.5-5.1); Sodium 138 mmol/L (135-145); Total Bilirubin 0.5 mg/dl (0.2-1.3); Total Protein 7.2 g/dl (6.3-8.2); eGFR > 60.00
[2024-06-05] MEDS: DILAUDID 0.25 MG IV (12:16)
[2024-06-05] MEDS: OMNIPAQUE 50 ML PO (12:16)
--- NOTE | 2024-06-05 12:26 | ED.GENMED ---
History of Present Illness
General
Chief Complaint: Abdominal Pain
Source: patient
Exam Limitations: none
Time Seen by Provider: 06/05/24 11:39
Nursing documentation reviewed up to this point in time: agreed with
History of Present Illness
History of Present Illness:
pt is a 79 y /o F
with h/o chronic constipation, diverticulitis
here with L sided lower abd pain x 3 days with inc in constipation and then the past 24 hours she has had more pain in the L flank region
it is very tender
she suspected divertic or constipation
usulaly takes milk of magnesia and then the past 2 days has used miralax bid with minimal relief
she is still able to eat/drink
feels wiped out
no vomiting, known fever, urinary sypmtoms, rectal bleeding
has seen both gen surgery (ced) and GI (elizabeth) fo rdivertic.
Past History
Past History
ED Past Medical History: Cancer (Skin CA), GERD, Hypercholesterolemia, Psychiatric (Anxiety, Depression, ) and Other (Arthritis, Diverticulitis, Back pain, Tinging arms and legs. Migraines, Spinal cyst, AAA, UTI, Rosacea)
ED Past Surgical History: Cholecystectomy, Gynecological (Tubal, ), Orthopedic (Right knee replacement, Neck and facial surgery, Spinal fusion) and Other
Social History
Tobacco: Non-smoker
Alcohol: None
Drug: None
Personal:
Living: with family
Family History
Family History: Other (Noncontributory)
Review of Systems
Review of Systems
Allergies reviewed?: Yes
All Other Systems: Not applicable
Phy Exam
Physical Exam
Physical Exam:
GENERAL: Alert , in no apparent distress
EYE: pupils equal and reactive
NECK: Supple
ENT: o/p clr, mmm.
CARDIAC: Regular rate and rhythm .
LUNGS: Clear breath sounds bilaterally, no acute respiratory distress, no wheezes/rales/rhonchi
ABDOMEN: Soft, moderate left upper/flank and left lower quad tendenress, no r/g, no cvat, normal bowel sounds
NEUROLOGICAL: Alert and oriented, no focal neuro deficits
SKIN: Warm and dry, skin intact.
MUSCULOSKELETAL: No edema, well perfused.
PSYCH: Normal and appropriate interaction.
Course
Orders/Labs/Results
Orders:
Orders
06/05/24 11:15
Complete Blood Count/With Diff Urgent
Comprehensive Metabolic Panel Urgent
Lactic Acid Urgent
Lipase Urgent
06/05/24 12:07
CT Abd/pel W Iv And Oral Contr Urgent
Comment:
Reason For Exam: left sided pain, h/o constipation, diveritculiitis
Iohexol [Omnipaque] See Protocol PO NOW STA
06/05/24 12:08
HYDROmorphone [Dilaudid] 0.25 mg IV NOW STA
06/05/24 12:12
Lactic Acid Urgent
06/05/24 14:11
HYDROmorphone [Dilaudid] 0.5 mg IV NOW STA
06/05/24 Dinner
NPO
Allow oral meds: Yes
Allow clear liquids: No
NPO with Ice Chips: No
06/05/24 16:37
Urinalysis Reflex To Culture Urgent
Date Specimen was Collected: 06/05/24
Time Specimen was Collected: 16:34
Urine Microscopic Reflex Cult Urgent
Urine Culture Urgent
BLU Source: U
Specimen Description:
Date Specimen was Collected: 06/05/24
Time Specimen was Collected: 16:34
06/05/24 17:23
Ampicillin/Sulbactam 3 G [Unasyn] 3 gm 0.9% Sodium Chloride 100 ml [Nss] 100 ml IV NOW
06/05/24 17:38
SURGICAL CONSULT Routine
Consulting Provider: Reyes Lund
Was physician already notified: Yes
Reason for consult: Acute diverticulitis distal descending colon
HYDROmorphone [Dilaudid] 0.25 mg IV Q4HPRN PRN
HYDROmorphone [Dilaudid] 0.5 mg IV Q4HPRN PRN
HYDROmorphone [Dilaudid] 1 mg IV Q4HPRN PRN
06/05/24 17:40
Admit/Transfer Patient As Directed
Co-Sign Provider:
Level of Care: Inpatient admission
Assign to:: Medical/Surgical
Physician / Group: bethel barrios
Diagnosis: acute diverticulitis distal descending colon, anxiety
Reason for Hospitalization: acute diverticulitis distal descending colon, anxiety
Expected length of stay greater than two midnights?: Yes
ELOS- Estimated Length of Stay in days: 3
I certify the patient meets the requirements for IP care: Yes
Code Status As Directed
Resuscitation Status: Do not resuscitate
Reached after discussion with pt or family/Healthcare POA: Yes
Based on pt advanced directive or healthcare POA form: Yes
Decision communicated with: per pt with Iain at bedside
DNR Bracelet Application ONCE
06/05/24 17:43
PRN Pain Medication Management As Directed
May give lesser potent ordered pain med per pt: Yes
preference::
Protocol:: Medication orders for pain may be administered in a
manner that supports deferring to patient preference
when the pt is:
- Requesting an ordered lesser potent pain medication.
Least to most potent pain medications are defined
as: acetaminophen < NSAID < tramadol < opioids
(morphine, oxycodone, hydromorphone).
- Requesting a lesser dose of the same medication IF
ORDERED.
- Requesting a less intrusive route of administration
if both routes are prescribed by the provider (PO <
IV).
Abnormal Lab Results
06/05/24 06/05/24 06/05/24
11:15 12:12 16:37
MCH 31.4 H pg
(27.0-31.0)
RDW 14.6 H %
(11.5-14.5)
Abs Immat Gran (auto) 0.1 H 10^3/uL
(0-0.05)
Absolute Neuts (auto) 7.3 H 10^3/uL
(1.4-6.5)
Absolute Monos (auto) 0.8 H 10^3/uL
(0.1-0.6)
Immature Gran % 0.9 H %
(0-0.5)
BUN 20 H mg/dl
(7-17)
Glucose 100 H mg/dl
(70-99)
Lactic Acid 0.6 L mmol/L
(0.7-2.0)
Urine Nitrite (Reflex) Positive A
(Negative)
Leukocyte Esterase Rfl 1+ A
(Negative)
Urine WBC (Reflex) 16-20 A /HPF
(0-5)
Urine Bacteria (Reflex) Many A
(Negative)
06/05/24 11:15
06/05/24 11:15
Vital Signs
Initial and Last Documented VS:
Initial Vital Signs
Temp Pulse Resp BP Pulse Ox
36.7 C 106 20 180/117 98
06/05/24 11:01 06/05/24 11:01 06/05/24 11:01 06/05/24 11:01 06/05/24 11:01
Last Documented Vital Signs
Temp Pulse Resp BP Pulse Ox
36.7 C 94 16 143/62 98
06/05/24 11:01 06/05/24 16:07 06/05/24 16:07 06/05/24 16:07 06/05/24 16:07
MDM/Problems Addressed
Differential Diagnosis Includes:
diuverticulitis, aaa, kidney stone, bowel obstruction
MDM/Problems Addressed:
oly hathaway 79 y/o F with h/o diverticulitis, small AAA
significant L abdominal pain, started gradually 3-4 days ago worse today; no diarrhea/bloody stool, some constipation
pain not controlled with mult doses dilaudid, still in pain
moderate tendreness L abdomen
afebrile
ct shows mild acute sigmoid divertic; no perf; stable 2.1 cm aortic ectasia
known to vita; iv abx, iv fluids
*Critical Care Note
Total Time (30-74mins, 75-104mins- exclusive of procedures): Not Applicable
ED Attending Note
-
Portions of this chart may have been created with voice recognition software.� Occasional wrong word or��sound alike� substitutions may have occurred due to the inherent limitations of voice recognition software.
Discharge Plan
Departure
Patient Disposition: Admit
Date of Disposition: 06/05/24
Time of Disposition: 16:11
Presentation/result/management discussed w/ accepting MD/DO: Hospitalist
Patient with high blood pressure during this ER visit?: No
Condition: Fair
Covid-19: Not Applicable
Discharge Problem:
Diverticulitis
Interventions
Interventions:
*Risk Screen - Suicide Last Done: 06/05/24 11:38
*General Assessment Last Done: 06/05/24 11:01
*Neglect/Abuse Screening Last Done: 06/05/24 11:38
*ED COVID-19 Vaccine History Last Done: 06/05/24 11:38
UM-Nmummn-Gbapwwavia Assessment Last Done: 06/05/24 11:38
[2024-06-05 12:44] LABS: Lactic Acid 0.6 mmol/L (0.7-2.0)
[2024-06-05] MEDS: DILAUDID 0.5 MG IV ×2 (14:14→18:09)
[2024-06-05 16:44] LABS: Urine Albumin Negative (Neg - Trace); Urine Bilirubin Negative (Negative); Urine Character Clear (Clear); Urine Color Yellow; Urine Glucose Negative (Negative); Urine Ketone Negative (Negative); Urine Leukocyte 1+ (Negative); Urine Nitrite Positive (Negative); Urine Occult Blood Negative (Negative); Urine Urobilinogen Negative (Neg - 1+)
[2024-06-05 16:51] LABS: Urine Red Blood Cell 0-2 /HPF (0-2)
[2024-06-05 16:52] LABS: Urine White Cell 16-20 /HPF (0-5)
[2024-06-05 16:53] LABS: Urine Bacteria Many (Negative)
--- NOTE | 2024-06-05 16:55 | HPS.HSE ---
Addendum entered and electronically signed by Rainer Majano DO 06/05/24 21:32:
Patient seen and examined independently. Agree with findings and plan as set forth by HINA Sanchez.
Patient is a 79y F with PMH significant for diverticular disease, chronic constipation and anxiety who presents to ED complaining of constipation x 3 days (despite usual MOM regimen) and LLQ abdominal pain. Patient notes that symptoms are
similar to prior episodes of diverticulitis. She complains of nausea with few episodes of non-bloody emesis. Imaging done in the ED shows evidence of acute descending colon diverticulitis.
Ass:
Acute Diverticulitis
Chronic Constipation
Anxiety / Depression
AAA
GERD
Plan:
Admit for further evaluation and treatment.
NPO, IV abx, supportive care.
Colorectal Surgery evaluation for additional recommendations.
Follow for clinical improvement.
Psych evaluation for chronic / uncontrolled anxiety.
Original Note:
Family Physician
-
Family Physician: Brock Pnod
Chief Complaint
-
Left lower quadrant abdominal pain
History of Present Illness
79-year-old female complaining of left lower sided abdominal pain with 3 days with constipation for 3 days. She reports increased pain over the past 24 hours. She tried milk of magnesia and then the past 2 days using MiraLAX twice daily with
minimal relief. She reports feeling wiped out, unable to eat or drink. She denies fever, chills, chest pain, palpitations, cough, shortness of breath, diarrhea, urinary symptoms. She states she takes milk of magnesia every day to have a bowel
movement for more than 3 years. She can member constipation as far back as a child. She states to me she has history of anxiety/PTSD and states I feel like I can never take a deep breath daily due to my anxiety'. She denies suicidal ideation. I
discussed if she takes any medication for her anxiety she states only lorazepam at night while this might help her sleep this is not helping her with her daily anxiety likely also causing constipation like problems. She states many years ago she
tried Lexapro but it put some weight on. I discussed possible use of another medication called Zoloft. She is interested in trying something to help her with this. I will put a consult in with psychiatry. She past medical history of
diverticulitis, chronic constipation, GERD, HLD, anxiety,PTSD depression, arthritis, chronic back pain/Hx spinal fusion, migraines, spinal cyst, AAA, UTIs, rosacea, chronic distention biliary tree up to 18 mm, unchanged 3 mm subpleural nodule in the
right lower lobe
Medical History
Past Medical History
Past Medical History: Reports Other
Additional Past Medical History:
Diverticulitis
Chronic constipation
GERD
HLD
Anxiety/PTSD
Depression
Arthritis
Chronic back pain/Hx spinal fusion
Spinal cyst
Migraines
AAA
UTIs
Rosacea
Past Surgical History: Reports Other
Additional Past Surgical History:
Hx spinal fusion
Tubal ligation
Right knee replacement
Neck and facial surgery
Cholecystectomy
Social History
Tobacco: Non-smoker
Alcohol: None
Drug: None
Personal:
Living: With Family (Third Iain)
Employment: Retired
Family History
Family History: Other (Patient's son committed suicide at age 48 after the of her prior who from ALS)
Allergies / Home Medications
Allergies reflects when Allergies were last updated in [employer].
Home Medications with original date entered in [employer]
Allergy/Medication List:
Allergies
Allergy/AdvReac Type Severity Reaction Status Date / Time
codeine Allergy Nausea / Verified 06/05/24 11:01
Vomiting
Home Medications
rosuvastatin 10 mg tablet 10 mg PO QPM High cholesterol 03/24/15
omeprazole 40 mg capsule,delayed release 40 mg PO DAILY GERD 01/20/21
Artificial Tears 1 drp BOTH EYES BID 06/05/24
Milk of Magnesia 1 cap PO DAILY 06/05/24
lorazepam 1 mg PO HS 06/05/24
polyethylene glycol 3350 17 gram oral powder packet (Miralax) 17 g PO BID PRN constipation 06/05/24
Review of Systems
-
History Source: Patient and Family
A 12 point ROS was completed and negative except as noted: Yes
Constitutional: Denies Fever
EENT: Denies Sore Throat
Respiratory: Denies Cough or Trouble Breathing
Cardiac: Denies Chest Pain, Diaphoresis or Palpitations
Abdomen/GI: Reports Abdominal Pain (llq abd pain); Denies Nausea, Vomiting or Diarrhea
: Denies Dysuria, Frequency, Flank Pain, Incontinence, Difficulty Voiding or Urgency
Musculoskeletal: Denies Joint Pain or Edema
Skin: Denies Itching or Rash
Neurological: Denies Dizzy or Headache
Endocrine: Reports No Symptoms
Hematologic/Lymphatic: Reports No Symptoms
Psych: Reports Anxiety
Physical Exam
Vital Signs
Vital Signs
Temp Pulse Resp BP Pulse Ox
98.1 F 94 16 143/62 98
06/05/24 11:01 06/05/24 16:07 06/05/24 16:07 06/05/24 16:07 06/05/24 16:07
Physical Exam
General: Conversant and Pain; No Fever or Chills
HEENT: NormoCephalic, Anicteric, Moist mucous membranes, [place] Conjunctivae and No Ptosis
Respiratory: Clear; No Wheezes, Rales or Rhonchi
Cardiac: S1/S2 and Regular Rhythm; No Murmur, Rub, Gallop or Peripheral Edema
GI: Soft, Non Distended, Normal Bowel Sounds, Tender (Left lower quadrant) and No Hepatosplenomegaly
Rectal: Deferred by Provider
Genito-urinary: Deferred by me
Musculoskeletal: No Clubbing, No Cyanosis and No Edema
Skin: Warm and Dry; No Rash
Neuro: AO x 3, No Motor Deficits, Nonfocal/grossly intact, Cranial Nerves Intact and No Sensory Deficits; No Slurred Speech, Facial Droop or Tremors
Psych: Anxious
Laboratory Results
-
06/05/24 11:15
06/05/24 11:15
Laboratory Results
Lactic Acid 0.6 mmol/L (0.7-2.0) L 06/05/24 12:12
Total Bilirubin 0.5 mg/dl (0.2-1.3) 06/05/24 11:15
AST 26 U/L (14-36) 06/05/24 11:15
ALT 19 U/L (0-35) 06/05/24 11:15
Alkaline Phosphatase 61 U/L (38-126) 06/05/24 11:15
Lipase 62 U/L (23-300) 06/05/24 11:15
Impression/Plan
-
Impression/plan:
Admit to MedSurg
#Abdominal pain secondary to Acute diverticulitis distal descending colon
WBC 10.6, afebrile, HR 94, 143/62
-IV Unasyn 3 g
-IV Dilaudid mild-moderate severe pain, Zofran will monitor QTc
- NPO
-IV NSS 80 cc/hr
-Consult colorectal surgery-Dr. Lund aware
CT abdomen pelvis with IV and oral contrast:
1. Findings suspicious for mild acute diverticulitis within the distal descending colon.
2. Unchanged 3 mm subpleural nodule within the right lower lobe.
3. 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
4. Ectatic abdominal aorta measuring 2.1 cm..
5. Lumbar fusion L4-L5
#Chronic constipation likely secondary to laxative training/anxiety
-Patient reports last bowel movement approximately 3 days ago, patient typically takes milk of mag daily to have a bowel movement
-Patient took milk of mag, MiraLAX twice daily over the past 2 days
-No reported constipation or stool on CT
#Acute on chronic anxiety (patient is not suicidal)
#Hx Depression
-Patient reports' I feel like I can never take a deep breath daily due to my anxiety'
-Patient is not on any chronic antianxiety medication nor sees a therapist would be interested in possible medication to help her with this feeling
-Consult Psychiatry
-Continue lorazepam 1 mg at bedtime
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
#GERD
-Continue omeprazole 40 mg daily
#HLD
-No current meds
#Arthritis-unsure type
#Chronic back pain/Hx spinal fusion L4-L5
Other PMH:
Unchanged 3 mm subpleural nodule within the right lower lobe.
Spinal cyst
Migraines
AAA
UTIs
Rosacea
DVT prophylaxis
Subcu heparin
DNR per patient with Iain at bedside
[2024-06-05] MEDS: UNASYN IV (17:30)
[2024-06-05] MEDS: ZOFRAN 4 MG IV (18:08)
[2024-06-05] MEDS: NSS 500 IV (18:08)
--- NOTE | 2024-06-05 19:00 | PTCARENOTE ---
Pt. admitted to room from [facility], J[facility] x 3, anxious, IVF's started, call stock within reach.
[2024-06-05] MEDS: NSS 1000 IV (20:07)
[2024-06-05] MEDS: HEPARIN 5000 UNITS SC (20:50)
[2024-06-05] MEDS: REFRESH EYE DROPS (PF) 1 DROPS BOTH EYES (20:51)
[2024-06-06] MEDS: UNASYN IV ×4 (00:12→17:53)
[2024-06-06] MEDS: DILAUDID 1 MG IV ×2 (04:46→10:29)
[2024-06-06 07:09] VITALS: BP 120/65
[2024-06-06 07:16] LABS: % Basophils 0.7 % (0-2); % Eosinophils 1.9 % (0-6); % Immature Granulocytes 0.9 % (0-0.5); % Lymphocytes 18.8 % (20.5-51.1); % Neutrophils 68.7 % (42.2-75.2); Absolute Basophils 0.1 10^3/uL (0-0.2); Absolute Eosinophils 0.1 10^3/uL (0-0.7); Absolute Immature Granulocytes 0.1 10^3/uL (0-0.05); Absolute Lymphocytes 1.3 10^3/uL (1.2-3.4); Absolute Monocytes 0.6 10^3/uL (0.1-0.6); Absolute Neutrophils 4.8 10^3/uL (1.4-6.5); Hematocrit 33.4 % (37.0-47.0); Hemoglobin 11.3 g/dL (12.0-16.0); Mean Corp Hgb Conc. 33.8 g/dL (33.0-37.0); Mean Corpuscular Hgb 31.9 pg (27.0-31.0); Mean Corpuscular Volume 94.4 fL (81.0-99.0); Mean Platelet Volume 9.5 fL (7.4-10.4); Nucleated Red Blood Cells % 0 %; Platelet Count 190 10^3/uL (130-400); Red Blood Cell Count 3.54 10^6/uL (4.20-5.40); Red Cell Dist. Width 14.3 % (11.5-14.5)
--- NOTE | 2024-06-06 07:21 | W.PN.HOSP.TC ---
Today's Communication/Plan
-
cont abx
diet as per surgery
pain control
antiemetic prn
Toradol prn
melatonin HS, ativan HSPRN
Check EKG for QT monitoring
GI ppx protonix
Assessment / Plan
Assessment / Plan
Physical Exam
General: Mild mod distress d/t abd pain nausea
HEENT: NormoCephalic, Anicteric, Moist mucous membranes
Respiratory: Clear to Auscultation b/l
Cardiac: S1/S2 Normal Sinus Rhythm no murmur rub gallop
GI: Soft, distended, tender, bowel sounds present
Musculoskeletal: No Clubbing, No Cyanosis and No Edema
Skin: Warm and Dry; No Rash
Neuro: AO x 3 conversant coherent
Psych: Anxious
CT abdomen pelvis with IV and oral contrast:
1. Findings suspicious for mild acute diverticulitis within the distal descending colon.
2. Unchanged 3 mm subpleural nodule within the right lower lobe.
3. 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
4. Ectatic abdominal aorta measuring 2.1 cm..
5. Lumbar fusion L4-L5
79F chronic constipation GERD HLD Anxiety/PTSD/depression chronic back pain spinal fusion AAA here for abd pain diverticulitis
#Abdominal pain secondary to Acute diverticulitis distal descending colon
-IV Unasyn 3 g
-pain control, IV toradol prn mod severe pain, IV dilaudid severe breakthrough pain
-prn antiemetic zofran
-IV NSS 80 cc/hr
-Surgery consult appreciated trial clears
Urine Cx E. coli
-denies urinary symptoms
-covered with abx as above in any event
#Chronic constipation
-Patient reports last bowel movement approximately 3 days ago, patient typically takes milk of mag daily to have a bowel movement
-Patient took milk of mag, MiraLAX twice daily over the past 2 days
-No reported constipation or stool on CT
-cont daily miralax as per surgery
#Acute on chronic anxiety
#Hx Depression
-Psych eval appreciated
-Melatonin 5mg HS
-Ativan 0.5 mg HSPRN (attempting taper from home med 1 mg HSPRN)
#GERD
-Continue omeprazole 40 mg daily
#HLD
-No current meds
-check lipid panel in AM
#Arthritis-unsure type
#Chronic back pain/Hx spinal fusion L4-L5
-pain control as above
Other PMH:
Unchanged 3 mm subpleural nodule within the right lower lobe.
Spinal cyst
Migraines
AAA
UTIs
Rosacea
DVT prophylaxis Subcu heparin
GI ppx protonix
DNR
Discussed with patient and patient's Iain
I spent a total of 50 minutes with the patient or on the floor. More than 50% of this time involved counseling and coordination of care.
Anticipated Discharge: 24 - 48 hours
Subjective/Interval History
-
Date of Service: June 06, 2024
Reporting nausea after recent dilaudid, just received zofran. Abd pain/tenderness persists
Objective Data
-
Labs:
Laboratory Results
06/06/24
06:15
WBC 7.0
Hgb 11.3 L
Hct 33.4 L
Plt Count 190
Sodium Pending
Potassium Pending
Chloride Pending
Carbon Dioxide Pending
BUN Pending
Creatinine Pending
Glucose Pending
Calcium Pending
Total Bilirubin Pending
AST Pending
ALT Pending
Alkaline Phosphatase Pending
Vital Signs:
Vital Signs
Temp Pulse Resp BP Pulse Ox
97.7 F 78 18 125/73 98
06/05/24 23:00 06/05/24 23:00 06/05/24 23:00 06/05/24 23:00 06/05/24 23:00
[2024-06-06 07:54] LABS: ALT (SGPT) 15 U/L (0-35); AST (SGOT) 22 U/L (14-36); Albumin 3.6 g/dl (3.5-5.0); Alkaline Phosphatase 60 U/L (38-126); Blood Urea Nitrogen 14 mg/dl (7-17); Calcium 8.6 mg/dl (8.4-10.2); Carbon Dioxide 25 mmol/L (22-30); Chloride 101 mmol/L (98-107); Estimated Creatinine Clearance 60 ml/min; Glucose 87 mg/dl (70-99); Potassium 4.1 mmol/L (3.5-5.1); Sodium 135 mmol/L (135-145); Total Bilirubin 0.5 mg/dl (0.2-1.3); Total Protein 5.8 g/dl (6.3-8.2); eGFR > 60.00
[2024-06-06] MEDS: HEPARIN 5000 UNITS SC ×2 (08:23→20:29)
[2024-06-06] MEDS: PROTONIX 40 MG PO (08:24)
[2024-06-06] MEDS: REFRESH EYE DROPS (PF) 1 DROPS BOTH EYES ×2 (08:24→20:28)
[2024-06-06] MEDS: ZOFRAN 4 MG IV (10:30)
[2024-06-06] MEDS: NSS 1000 IV (14:15)
--- NOTE | 2024-06-06 14:26 | CON.GS ---
Addendum entered and electronically signed by Reyes Lund MD 06/06/24 15:28:
I saw and examined the patient.
The Dye Colorist Formulator's note was reviewed and I agree with the note.
Comment: uncomplicated diverticulitis, mod LLQ ttp, AFVSS, no leukocytosis, CT without extraluminal air or abscess, mildly inflamed descending/sigmoid colon noted. plan for nonop mgmt this episode with prompt f/u with dr card to discuss possible
surgical mgmt on elective basis. for now, cont iv abx, ok for cld. dysuria and frequency noted, abx should cover but will f/u UCx
Original Note:
Consultation
-
Date/Time Consultation Requested: 06/05/241737
Requesting Provider: [facility]
Reason for Consultation: Acute diverticulitis distal descending colon
Medical History
-
Chief Complaint: abdominal pain
History of Present Illness:
Ms Jeff is a 79 yo female with a history of diverticulitis (this is her 4th episode), IBS with chronic constipation, DDD with prior cervical spine surgery, and anxiety presenting with LLQ pain which began 3-4 days ago. She notes that she has been
quite constipated this week and has been taking MOM and senna which she usually uses to manage this but also added Miralax as well with some benefit. Yesterday, she noted increasing pain with nausea and vomiting and presented to the ED for
evaluation. She also notes dysuria and urinary frequency. On exam, she is markedly tender to the LLQ with mild tenderness to the RLQ. She denies fevers or chills.
She has seen Dr. Card as an outpatient to discuss surgical intervention to prevent continued recurrence of diverticulitis but was not yet ready to plan surgery. Her last colonoscopy was in January of 2024 with diverticular disease noted.
Past Medical History
Past Medical History: Diverticulitis, GERD, Hypercholesterolemia, Psychiatric (Anxiety/PTSD), Valvular Disease (aortic atherosclerosis) and Other (Chronic constipation, Lumbar spinal stenosis with neurogenic claudication, multilevel DDD)
Past Surgical History: Cholecystectomy, Gynecological (tubal ligation), Orthopedic (Fusion L4-L5, Right TKA, Cervical discectomy with subsequent irrigation, debridement and evacuation of hematoma to the anterior cervical spine), Tonsilectomy and
Other (last colonoscopy 01/2024 with diverticulosis/hemorrhoids seen, face lift)
Social History
Tobacco: Non-Smoker
Alcohol: None
Personal:
Living: With Family
Family History
Family History: Reviewed & Not Pertinent and Cancer (colon ca in mother)
Allergies / Home Medications
Allergy/AdvReac Type Severity Reaction Status Date / Time
codeine Allergy Nausea / Verified 06/05/24 11:01
Vomiting
�Medication �Instructions �Recorded �Confirmed �Type
rosuvastatin 10 mg tablet 10 mg PO QPM High cholesterol 03/24/15 01/30/21 History
omeprazole 40 mg capsule,delayed 40 mg PO DAILY GERD 01/20/21 01/30/21 History
release
Artificial Tears 1 drp BOTH EYES BID Eye Condition 06/05/24 06/05/24 History
Milk of Magnesia 1 cap PO DAILY Constipation 06/05/24 06/05/24 History
lorazepam 1 mg PO HS Mental Health/Anxiety 06/05/24 06/05/24 History
polyethylene glycol 3350 17 gram 17 g PO BID PRN constipation 06/05/24 06/05/24 History
oral powder packet (Miralax)
Review of Systems
-
History Source: Patient and Family
All other systems: Negative unless noted
A 10 point review of systems was completed, and was negative except as per HPI.
Physical Exam
Vital Signs
Temp Pulse Resp BP Pulse Ox
98.6 F 80 16 120/65 97
06/06/24 07:09 06/06/24 07:09 06/06/24 07:09 06/06/24 07:09 06/06/24 07:09
06/05/24 06/06/24 06/07/24
06:59 06:59 06:59
Actual Weight 70.335 kg
Body Mass Index (BMI) 25.8
Lab Results
06/06/24 06:15
06/06/24 06:15
WBC 7.0 10^3/uL (4.8-10.8) 06/06/24 06:15
Hgb 11.3 g/dL (12.0-16.0) L 06/06/24 06:15
Hct 33.4 % (37.0-47.0) L 06/06/24 06:15
Plt Count 190 10^3/uL (130-400) 06/06/24 06:15
Abs Immat Gran (auto) 0.1 10^3/uL (0-0.05) H 06/06/24 06:15
Neutrophils % 68.7 % (42.2-75.2) 06/06/24 06:15
Physical Exam
General: Well Developed and Well Nourished
HEENT: Moist Mucous Membranes
Respiratory: Non Labored Respirations
GI: Soft, Tender (LLQ severe, RLQ mild) and Distended (mild)
Skin: Warm and Dry
Neuro: Awake, Alert and AO x 3
Psych: Calm
Assessment / Plan
-
79 yo female with a h/o recurrent diverticulitis presenting with 3-4 days of LLQ abdominal pain with constipation, nausea and vomiting. CT imaging reviewed with uncomplicated sigmoid diverticulitis present. No leukocytosis or fevers. +Ecoli in the
urine as well. Significantly tender the LLQ with persistent nausea. Vital signs are stable.
No plan for emergent surgery at this time, will follow for improvement with IV abx. Discussed outpatient follow up to discuss future surgery for prevention after she is recovered from this episode
--Trial of clears
--Continue IV ABX
--Will follow labs/exams on IV abx
--Await urine cx sensitivities
--Daily miralax
--Medical management as per primary team
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
[2024-06-06 15:04] VITALS: BP 149/76
[2024-06-06] MEDS: MIRALAX 17 GRAMS PO (17:51)
[2024-06-06] MEDS: PROTONIX IV 40 MG IV (17:51)
[2024-06-06] MEDS: CRESTOR 10 MG PO (17:51)
[2024-06-06] MEDS: NSS (PRESERVATIVE FREE) 10 ML IV (17:52)
[2024-06-06] MEDS: MELATONIN 5 MG PO (22:07)
[2024-06-06] MEDS: ATIVAN 0.5 MG PO (22:10)
[2024-06-06 23:42] VITALS: BP 123/56
[2024-06-07] MEDS: UNASYN IV ×3 (00:44→12:24)
[2024-06-07] MEDS: NSS 1000 IV ×2 (03:43→17:08)
[2024-06-07 06:57] LABS: % Basophils 0.7 % (0-2); % Eosinophils 2.1 % (0-6); % Immature Granulocytes 0.7 % (0-0.5); % Lymphocytes 24.1 % (20.5-51.1); % Monocytes 9.2 % (1.7-9.3); % Neutrophils 63.2 % (42.2-75.2); Absolute Eosinophils 0.1 10^3/uL (0-0.7); Absolute Lymphocytes 1.5 10^3/uL (1.2-3.4); Absolute Monocytes 0.6 10^3/uL (0.1-0.6); Absolute Neutrophils 3.9 10^3/uL (1.4-6.5); Hematocrit 32.8 % (37.0-47.0); Hemoglobin 11.2 g/dL (12.0-16.0); Mean Corp Hgb Conc. 34.1 g/dL (33.0-37.0); Mean Corpuscular Hgb 31.7 pg (27.0-31.0); Mean Corpuscular Volume 92.9 fL (81.0-99.0); Mean Platelet Volume 9.5 fL (7.4-10.4); Nucleated Red Blood Cells % 0 %; Platelet Count 183 10^3/uL (130-400); Red Blood Cell Count 3.53 10^6/uL (4.20-5.40); Red Cell Dist. Width 14.1 % (11.5-14.5); White Blood Cell Count 6.1 10^3/uL (4.8-10.8)
[2024-06-07 07:25] LABS: ALT (SGPT) 14 U/L (0-35); AST (SGOT) 19 U/L (14-36); Albumin 3.4 g/dl (3.5-5.0); Alkaline Phosphatase 61 U/L (38-126); Blood Urea Nitrogen 10 mg/dl (7-17); Calcium 8.5 mg/dl (8.4-10.2); Carbon Dioxide 24 mmol/L (22-30); Chloride 104 mmol/L (98-107); Estimated Creatinine Clearance 60 ml/min; Glucose 82 mg/dl (70-99); HDL Cholesterol 60 mg/dl; LDL Cholesterol, Calculated 56 mg/dl; Magnesium 2.1 mg/dl (1.6-2.3); Sodium 136 mmol/L (135-145); Total Bilirubin 0.5 mg/dl (0.2-1.3); Total Cholesterol 143 mg/dl (50-199); Total Protein 5.7 g/dl (6.3-8.2); Triglyceride 135 mg/dl (10-149); Very Low Density Lipoprotein 27 mg/dl (0-30); eGFR > 60.00
[2024-06-07 07:29] VITALS: BP 130/56
--- NOTE | 2024-06-07 07:51 | W.PN.HOSP.TC ---
Addendum entered and electronically signed by George Ross MD 06/07/24 16:36:
Patient requested change in Code Status to Full code. Updated accordingly.
Original Note:
Today's Communication/Plan
-
cont abx
pain control
diet bowel regimen as per surgery
reduced IVF rate
PT eval
Assessment / Plan
Assessment / Plan
Physical Exam
General: Mild mod distress d/t abd pain nausea
HEENT: NormoCephalic, Anicteric, Moist mucous membranes
Respiratory: Clear to Auscultation b/l
Cardiac: S1/S2 Normal Sinus Rhythm no murmur rub gallop
GI: Soft, distended, tender, bowel sounds present
Musculoskeletal: No Clubbing, No Cyanosis and No Edema
Skin: Warm and Dry; No Rash
Neuro: AO x 3 conversant coherent
Psych: Calm
CT abdomen pelvis with IV and oral contrast:
1. Findings suspicious for mild acute diverticulitis within the distal descending colon.
2. Unchanged 3 mm subpleural nodule within the right lower lobe.
3. 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
4. Ectatic abdominal aorta measuring 2.1 cm..
5. Lumbar fusion L4-L5
79F chronic constipation GERD HLD Anxiety/PTSD/depression chronic back pain spinal fusion AAA here for abd pain diverticulitis
#Abdominal pain secondary to Acute diverticulitis distal descending colon
-IV Unasyn 3 g switched to zosyn as per surgery
-pain control, IV toradol prn mod severe pain, IV dilaudid severe breakthrough pain
-prn antiemetic zofran
-Surgery consult appreciated tolerating clears diet advanced to Full Liquid
-IVF NSS rate reduced to 60 cc/hr
Urine Cx E. coli
-denies urinary symptoms
-intermediate resistance unasyn noted, switched to Zosyn as per surgery, cont
#Chronic constipation
-Patient reports last bowel movement approximately 3 days ago, patient typically takes milk of mag daily to have a bowel movement
-Patient took milk of mag, MiraLAX twice daily over the past 2 days
-No reported constipation or stool on CT
-cont daily miralax as per surgery
-constipation since improved
#Acute on chronic anxiety
#Hx Depression
-Psych eval appreciated
-Melatonin 5mg HS Ativan 0.5 mg HSPRN, reports good response/good sleep overnight
#GERD
-Continue omeprazole 40 mg daily
#hx HLD
-Lipid panel appreciated wnl
-cont home statin
#Arthritis-unsure type
#Chronic back pain/Hx spinal fusion L4-L5
-pain control as above
PT eval pending
Other PMH:
Unchanged 3 mm subpleural nodule within the right lower lobe.
Spinal cyst
Migraines
AAA
UTIs
Rosacea
DVT prophylaxis Subcu heparin
GI ppx protonix
DNR
Discussed with patient
I spent a total of 45 minutes with the patient or on the floor. More than 50% of this time involved counseling and coordination of care.
Anticipated Discharge: 24 - 48 hours
Subjective/Interval History
-
Date of Service: June 07, 2024
Seen and examined at bedside in no acute distress resting comfortably in bed. Reports improvement in pain control though pain not resolved. Tolerating liquid diet. Reports good sleep with melatonin and prn ativan 0.5 mg
Objective Data
-
Labs:
Laboratory Results
06/07/24
06:29
WBC 6.1
Hgb 11.2 L
Hct 32.8 L
Plt Count 183
Sodium 136
Potassium 4.0
Chloride 104
Carbon Dioxide 24
BUN 10
Creatinine 0.7
Glucose 82
Calcium 8.5
Total Bilirubin 0.5
AST 19
ALT 14
Alkaline Phosphatase 61
Vital Signs:
Vital Signs
Temp Pulse Resp BP Pulse Ox
98.3 F 67 18 123/56 97
06/06/24 23:42 06/06/24 23:42 06/06/24 23:42 06/06/24 23:42 06/06/24 23:42
I&O
06/06/24 06/07/24 06/08/24
06:59 06:59 06:59
Intake Total 2478 / 2478
Output Total 50 / 50
Balance 2428 / 2428
[2024-06-07] MEDS: REFRESH EYE DROPS (PF) 1 DROPS BOTH EYES ×2 (08:50→20:07)
[2024-06-07] MEDS: MIRALAX 17 GRAMS PO (08:50)
[2024-06-07] MEDS: HEPARIN 5000 UNITS SC ×2 (08:51→20:06)
[2024-06-07] MEDS: PROTONIX IV 40 MG IV (08:51)
[2024-06-07] MEDS: NSS (PRESERVATIVE FREE) 10 ML IV (08:51)
[2024-06-07] MEDS: TORADOL 15 MG IV ×2 (09:02→20:40)
--- NOTE | 2024-06-07 09:05 | PTCARENOTE ---
Reports a small, formed BM this AM. Currently has 6/10 LLQ pain, given Toradol.
--- NOTE | 2024-06-07 13:39 | W.PN.GS2 ---
Addendum entered and electronically signed by Reyes Lund MD 06/07/24 14:07:
I saw and examined the patient.
The Lead Portfolio Manager's note was reviewed and I agree with the note.
Comment: Improving. less ttp to llq today. victoriano cld. adv to fld. cont iv abx. cont expectant mgmt for this admit.
Original Note:
Today's Communication / Plan
-
FLD
Assessment / Plan
-
79 yo female with a h/o recurrent diverticulitis presenting with 3-4 days of LLQ abdominal pain with constipation, nausea and vomiting. CT imaging reviewed with uncomplicated sigmoid diverticulitis present. No leukocytosis or fevers. Symptomatic UTI
as well.
AFVSS
No leukocytosis
No plan for emergent surgery at this time, will follow for improvement with IV abx. Discussed outpatient follow up to discuss future surgery for prevention after she is recovered from this episode
--Advance to FLD
--Continue IV ABX, will tire changer aircraft to Zosyn given urine cx sensitivity profile
--Will follow labs/exams
--Daily miralax, hold for diarrhea
--Medical management as per primary team
Subjective Data
-
Date of Service: June 07, 2024
Patient seen and examined at bedside with Dr. Lund. Denies further nausea or vomiting. Passed several normal stools and now some loose stools as well. Pain to LLQ present but easing.
Objective Data
-
Intake and Output
06/06/24 06/07/24 06/08/24
06:59 06:59 06:59
Intake Total 2478 / 2478
Output Total 50 / 50
Balance 2428 / 2428
Intake:
Oral fluids 600 / 600
IV fluids (Total) 1398 / 1398
IV piggybacks 480 / 480
Output:
Emesis 50 / 50
Other:
Number of approximated MODERATE 1
amounts of urine
Vital Signs
Temp Pulse Resp BP Pulse Ox
98.4 F 67 16 130/56 95
06/07/24 07:29 06/07/24 07:29 06/07/24 07:29 06/07/24 07:29 06/07/24 07:29
Lab Results
06/07/24 06:
06/07/24 06:
Calcium 8.5 mg/dl (8.4-10.2) 06/07/24 06:
Phosphorus 3.0 mg/dl (2.5-4.5) 06/07/24:
Magnesium 2.1 mg/dl (1.6-2.3) 06/07/24 06:
Total Bilirubin 0.5 mg/dl (0.2-1.3) 06/07/24 06:
AST 19 U/L (14-36) 06/07/24 06:29
ALT 14 U/L (0-35) 06/07/24 06:29
Alkaline Phosphatase 61 U/L (38-126) 06/07/24 06:
Total Protein 5.7 g/dl (6.3-8.2) L 06/07/24 06:
Albumin 3.4 g/dl (3.5-5.0) L 06/07/24 06:29
Physical Exam
-
NAD
ABD soft, tender to LLQ, ND
Patient has a garcia catheter: No
Patient has a central line: No
--- NOTE | 2024-06-07 14:59 | CM ---
Patient seen at bedside.
IA completed
Lives with in a 2 story home, 3 steps to enter, flight steps to bedroom
PLOF: Independent, uses no device
Declined PT yesterday
DME: walker, wheelchair
Denies HH/outpatient therapy in past knee replacement
Denies insecurities
PCP: [facility]
Pharmacy: [facility], [place]
PLAN: Home, currently no needs anticipated
[2024-06-07 15:00] VITALS: BP 141/72; PULSE 78; O2SAT 97
[2024-06-07 15:29] VITALS: BP 125/63
--- NOTE | 2024-06-07 16:36 | W.PN.UPDATE ---
Update Note
Progress Note Update
Patient requested change in Code Status to Full code. Updated accordingly.
[2024-06-07] MEDS: CRESTOR 10 MG PO (17:08)
[2024-06-07] MEDS: ZOSYN 50 IV ×2 (17:08→22:06)
[2024-06-07] MEDS: MELATONIN 5 MG PO (22:06)
[2024-06-07] MEDS: ATIVAN 0.5 MG PO (22:06)
[2024-06-07 23:20] VITALS: BP 121/63
[2024-06-08] MEDS: ZOSYN 50 IV ×3 (03:22→15:11)
[2024-06-08 07:45] VITALS: BP 131/76
[2024-06-08 08:28] LABS: % Basophils 1.5 % (0-2); % Eosinophils 3.1 % (0-6); % Immature Granulocytes 0.8 % (0-0.5); % Lymphocytes 25.2 % (20.5-51.1); % Monocytes 9.2 % (1.7-9.3); % Neutrophils 60.2 % (42.2-75.2); Absolute Basophils 0.1 10^3/uL (0-0.2); Absolute Eosinophils 0.2 10^3/uL (0-0.7); Absolute Lymphocytes 1.2 10^3/uL (1.2-3.4); Absolute Monocytes 0.4 10^3/uL (0.1-0.6); Absolute Neutrophils 2.9 10^3/uL (1.4-6.5); Hematocrit 36.4 % (37.0-47.0); Hemoglobin 12.3 g/dL (12.0-16.0); Mean Corp Hgb Conc. 33.8 g/dL (33.0-37.0); Mean Corpuscular Hgb 31.6 pg (27.0-31.0); Mean Corpuscular Volume 93.6 fL (81.0-99.0); Mean Platelet Volume 9.4 fL (7.4-10.4); Nucleated Red Blood Cells % 0 %; Platelet Count 194 10^3/uL (130-400); Red Blood Cell Count 3.89 10^6/uL (4.20-5.40); Red Cell Dist. Width 14.4 % (11.5-14.5); White Blood Cell Count 4.8 10^3/uL (4.8-10.8)
[2024-06-08] MEDS: HEPARIN 5000 UNITS SC (08:40)
[2024-06-08] MEDS: MIRALAX PO (08:40)
[2024-06-08] MEDS: NSS (PRESERVATIVE FREE) 10 ML IV (08:40)
[2024-06-08] MEDS: PROTONIX IV 40 MG IV (08:40)
[2024-06-08] MEDS: REFRESH EYE DROPS (PF) 1 DROPS BOTH EYES (08:41)
[2024-06-08 08:58] LABS: ALT (SGPT) 14 U/L (0-35); AST (SGOT) 22 U/L (14-36); Albumin 3.9 g/dl (3.5-5.0); Alkaline Phosphatase 60 U/L (38-126); Blood Urea Nitrogen 9 mg/dl (7-17); Calcium 8.9 mg/dl (8.4-10.2); Carbon Dioxide 26 mmol/L (22-30); Chloride 105 mmol/L (98-107); Estimated Creatinine Clearance 46 ml/min; Glucose 117 mg/dl (70-99); Magnesium 2.2 mg/dl (1.6-2.3); Phosphorus 3.1 mg/dl (2.5-4.5); Potassium 4.1 mmol/L (3.5-5.1); Sodium 139 mmol/L (135-145); Total Bilirubin 0.5 mg/dl (0.2-1.3); Total Protein 6.3 g/dl (6.3-8.2); eGFR > 60.00
--- NOTE | 2024-06-08 10:19 | W.PN.GS2 ---
Today's Communication / Plan
-
Dispo planning
Assessment / Plan
-
79 yo female with a h/o recurrent diverticulitis presenting with 3-4 days of LLQ abdominal pain with constipation, nausea and vomiting. CT imaging reviewed with uncomplicated sigmoid diverticulitis present. No leukocytosis or fevers. Symptomatic UTI
as well.
AFVSS
No leukocytosis
No plan for emergent surgery at this time, will follow for improvement with IV abx. Discussed outpatient follow up to discuss future surgery for prevention after she is recovered from this episode
--Advance to low residue diet
--Will discharge today on p.o. antibiotics. Will plan for a 7-day course total.
--Follow-up to be scheduled with Dr. Card
All questions answered, patient agreeable to plan of care above.
Time Spent
Total Time Spent with Patient (in minutes): 20
Subjective Data
-
Date of Service: June 08, 2024
Interval Events:
No acute events overnight. Slept well. Pain Controlled. Denies Nausea/Vomiting, +bowel function. Tolerating diet.
Objective Data
-
Intake and Output
06/07/24 06/08/24 06/09/24
06:59 06:59 06:59
Intake Total 2478 / 2478 1475 / 1475 1300 / 1300
Output Total 50 / 50
Balance 2428 / 2428 1475 / 1475 1300 / 1300
Intake:
Oral fluids 600 / 600 500 / 500 480 / 480
IV fluids (Total) 1398 / 1398 800 / 800 720 / 720
IV piggybacks 480 / 480 175 / 175 100 / 100
Output:
Emesis 50 / 50
Other:
Number of approximated MODERATE 1 3 1
amounts of urine
Number of approximated LARGE 1
amounts of urine
Vital Signs
Temp Pulse Resp BP Pulse Ox
98.8 F 69 20 131/76 97
06/08/24 07:45 06/08/24 07:45 06/08/24 07:45 06/08/24 07:45 06/08/24 07:45
Lab Results
06/08/24 08:00
06/08/24 08:00
Calcium 8.9 mg/dl (8.4-10.2) 06/08/24 08:00
Phosphorus 3.1 mg/dl (2.5-4.5) 06/08/24 08:00
Magnesium 2.2 mg/dl (1.6-2.3) 06/08/24 08:00
Total Bilirubin 0.5 mg/dl (0.2-1.3) 06/08/24 08:00
AST 22 U/L (14-36) 06/08/24 08:00
ALT 14 U/L (0-35) 06/08/24 08:00
Alkaline Phosphatase 60 U/L (38-126) 06/08/24 08:00
Total Protein 6.3 g/dl (6.3-8.2) 06/08/24 08:00
Albumin 3.9 g/dl (3.5-5.0) 06/08/24 08:00
Physical Exam
-
GENERAL/NEURO: Awake, Alert, no distress
CHEST: Unlabored breathing on RA
ABDOMEN: Soft, minimally tender, nondistended
Patient has a garcia catheter: No
Patient has a central line: No
[2024-06-08] MEDS: NSS IV (11:19)
--- NOTE | 2024-06-08 13:00 | W.PN.HOSP.TC ---
Today's Communication/Plan
-
po abx
OP surgery f/u
LRD
Assessment / Plan
Assessment / Plan
Physical Exam
General: Mild mod distress d/t abd pain nausea
HEENT: NormoCephalic, Anicteric, Moist mucous membranes
Respiratory: Clear to Auscultation b/l
Cardiac: S1/S2 Normal Sinus Rhythm no murmur rub gallop
GI: Soft, distended, tender, bowel sounds present
Musculoskeletal: No Clubbing, No Cyanosis and No Edema
Skin: Warm and Dry; No Rash
Neuro: AO x 3 conversant coherent
Psych: Calm
CT abdomen pelvis with IV and oral contrast:
1. Findings suspicious for mild acute diverticulitis within the distal descending colon.
2. Unchanged 3 mm subpleural nodule within the right lower lobe.
3. 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
4. Ectatic abdominal aorta measuring 2.1 cm..
5. Lumbar fusion L4-L5
79F chronic constipation GERD HLD Anxiety/PTSD/depression chronic back pain spinal fusion AAA here for abd pain diverticulitis
#Abdominal pain secondary to Acute diverticulitis distal descending colon
-IV Unasyn 3 g switched to zosyn as per surgery. Could transition to cephalosporins + Flagyl
-pain control, IV toradol prn mod severe pain, IV dilaudid severe breakthrough pain
-prn antiemetic zofran
-Surgery consult appreciated tolerating clears diet advanced to Full Liquid to LRD. Outpatient follow-up with Dr. Card.
-stop IVF.
Urine Cx E. coli
-denies urinary symptoms
-intermediate resistance unasyn noted, switched to Zosyn as per surgery. Susceptibility noted and can transition to cephalosporins
#Chronic constipation
-Patient reports last bowel movement approximately 3 days ago, patient typically takes milk of mag daily to have a bowel movement
-Patient took milk of mag, MiraLAX twice daily over the past 2 days
-No reported constipation or stool on CT
-cont daily miralax as per surgery
-constipation since improved
#Acute on chronic anxiety
#Hx Depression
-Psych eval appreciated
-Melatonin 5mg HS Ativan 0.5 mg HSPRN, reports good response/good sleep overnight
#GERD
-Continue omeprazole 40 mg daily
#hx HLD
-Lipid panel appreciated wnl
-cont home statin
#Arthritis-unsure type
#Chronic back pain/Hx spinal fusion L4-L5
-pain control as above
Other PMH:
Unchanged 3 mm subpleural nodule within the right lower lobe.
Spinal cyst
Migraines
AAA
UTIs
Rosacea
DVT prophylaxis Subcu heparin
GI ppx protonix
Full code
PT home health.
More than 30 minutes spent in discharge including
Final examination of the patient
Summarizing hospital stay
Instructions for continuing care to all relevant caregivers
Preparation of discharge records, prescriptions, and referral forms
Total time spent (in minutes): 50
Anticipated Discharge: Today
Subjective/Interval History
-
Date of Service: June 08, 2024
tolerating liquids
eager to try solid
Significant improvement in abdominal pain.
Objective Data
-
Labs:
Laboratory Results
06/08/24
08:00
WBC 4.8
Hgb 12.3
Hct 36.4 L
Plt Count 194
Sodium 139
Potassium 4.1
Chloride 105
Carbon Dioxide 26
BUN 9
Creatinine 0.9
Glucose 117 H
Calcium 8.9
Total Bilirubin 0.5
AST 22
ALT 14
Alkaline Phosphatase 60
Vital Signs:
Vital Signs
Temp Pulse Resp BP Pulse Ox
98.8 F 69 20 131/76 97
06/08/24 07:45 06/08/24 07:45 06/08/24 07:45 06/08/24 07:45 06/08/24 07:45
I&O
06/07/24 06/08/24 06/09/24
06:59 06:59 06:59
Intake Total 2478 / 2478 1475 / 1475 1300 / 1300
Output Total 50 / 50
Balance 2428 / 2428 1475 / 1475 1300 / 1300
--- NOTE | 2024-06-08 13:06 | CM ---
Addendum entered by Marialuisa Aguilera 06/08/24 14:56:
Plan is to home with [facility].
Original Note:
group manager reviewed patient's chart and met with patient and patient did well with physical therapy, plan is to home when stable, with spouse, recommendation is for visiting nurses after discharge, shoe caser will discuss with patient.
Plan; Home with spouse and visiting nurses.
--- NOTE | 2024-06-08 14:26 | W.DCSUMMARY ---
Discharge Summary
Discharge Data
Date of Admission: 06/05/24
Date of Discharge: 06/08/24
-
Pending Results: No
Hospital Course
79F chronic constipation GERD HLD Anxiety/PTSD/depression chronic back pain spinal fusion AAA here for abd pain found to have ascending colon diverticulitis. Surgery was consulted. Patient was started on IV Unasyn. Patient was kept n.p.o. and was
started on IV fluids. Patient also with chronic constipation and surgery recommended daily MiraLAX. IV Unasyn was transitioned to Zosyn per surgery. Patient diet was advanced to liquid diet. Patient tolerated liquid diet without any difficulty.
Patient was able to tolerate low residue diet. Patient will require outpatient follow-up with surgery. IV antibiotics were transitioned to p.o. ceftriaxone and Flagyl. Recommended daily MiraLAX. Patient also had severe anxiety and psych was
consulted. Psych recommended to starting melatonin and to decrease dose of Ativan at bedside. Psych offered to be started on medications however patient refused. Recommend outpatient follow-up with PCP and psychiatry.
Discharge Plan
-
Patient Disposition: Home with Home Care
Discharge Diagnosis/Procedures: Abdominal pain secondary to Acute diverticulitis distal descending colon
E. coli urinary tract infection
Acute on chronic anxiety
Constipation
Condition: Fair
Diet: Low Residue
Activity: With assistance and As tolerated
Driving Restrictions: As prior to admission
Referrals:
Brock Pond DO [Family Provider] - in less than 1 week ( 3 mm subpleural nodule within the right lower lobe unchanged compared 12/03-f/u with pcp)
Yordy Card MD [Active] - in two to four weeks (call to make appt. )
Prescriptions:
New
melatonin 5 mg Tablet
5 mg PO HS 14 Days Qty: 14 0RF
metronidazole 500 mg tablet
500 mg PO TID 5 Days Qty: 15 0RF
cefdinir 300 mg capsule
300 mg PO Q12H Qty: 10 0RF
acetaminophen [Tylenol] 325 mg tablet
650 mg PO QID PRN (Reason: Pain) Qty: 20 0RF
Continued
rosuvastatin 10 MG tablet
10 mg PO QPM
omeprazole 40 MG capsule,delayed release(DR/EC)
40 mg PO DAILY
Artificial Tears
1 drp BOTH EYES BID
Changed
polyethylene glycol 3350 [Miralax] 17 gram Powder In Packet
17 g PO DAILY Qty: 30 0RF
lorazepam
0.5 mg PO HS Qty: 0 0RF
Discontinued
Milk of Magnesia
1 cap PO DAILY
Discharge Orders:
Discharge Patient (As Directed); Ordered 06/08/24
Ordered By: Milton Pinon
Discharge Date and Time
Print Language: CHINESE
[2024-06-08 15:00] VITALS: BP 150/70
--- NOTE | 2024-06-08 15:45 | VNURNOTE ---
Home Health Liaison met with patient at bedside to discuss [facility] nurse/therapy, visits, schedule and homebound status. Patient is agreeable and understands that visits at home will be 2-3 x per week to assess and teach medical management. [facility]
brochure provided with contact information. Patient is aware that [facility] will contact them for start of care in 1-2 days after discharge from .
[facility] referral completed in [facility].
== END 2024-06-08 16:38 | disposition home health service (06) | DRG 392 ==
LOC: 4 WEST ACU 17:53
PROVIDERS: Clinical Nurse Specialist Family Health; Physician Assistant; ADMITTING PHYSICIAN Hospitalist; ATTENDING PHYSICIAN Hospitalist; CONSULT PHYSICIAN Surgery; EMERGENCY PHYSICIAN Emergency Medicine; FAMILY PHYSICIAN Family Medicine; OTHER PHYSICIAN Psychiatry & Neurology Psychiatry
DX: K57.32 Diverticulitis of large intestine without perforation or abscess without bleeding (principal); N39.0 Urinary tract infection, site not specified; Z16.29 Resistance to other single specified antibiotic; B96.20 Unspecified Escherichia coli [E. coli] as the cause of diseases classified elsewhere; F41.9 Anxiety disorder, unspecified; K59.09 Other constipation; F32.A Depression, unspecified; G89.29 Other chronic pain; I71.40 Abdominal aortic aneurysm, without rupture, unspecified; K21.9 Gastro-esophageal reflux disease without esophagitis; E78.00 Pure hypercholesterolemia, unspecified; F43.10 Post-traumatic stress disorder, unspecified; Z98.1 Arthrodesis status; M19.90 Unspecified osteoarthritis, unspecified site; G43.909 Migraine, unspecified, not intractable, without status migrainosus; L71.9 Rosacea, unspecified; Z96.651 Presence of right artificial knee joint; Z90.49 Acquired absence of other specified parts of digestive tract; Z88.5 Allergy status to narcotic agent; Z66 Do not resuscitate; M48.062 Spinal stenosis, lumbar region with neurogenic claudication; I70.0 Atherosclerosis of aorta
CPT/HCPCS: 74177; 80053; 80061; 81003; 81015; 83605; 83690; 83735; 84100; 85025; 87077; 87086; 87186; 93005; 96361; 96374; 96375; 96376; 97162; 99285; Q9967

== ENCOUNTER 2024-06-20 12:59 | Emergency (ER) | payer MEDICARE, OTHER, SELFPAY ==
[2024-06-20] VITALS (7 sets, daily range): BP systolic 84–137; BP diastolic 40–72; BMI 25.8
[2024-06-20] MEDS: LR 1000 IV (13:36)
[2024-06-20] MEDS: TYLENOL 650 MG PO (13:36)
[2024-06-20 14:02] LABS: % Basophils 0.5 % (0-2); % Immature Granulocytes 0.5 % (0-0.5); % Lymphocytes 11.5 % (20.5-51.1); % Monocytes 7.7 % (1.7-9.3); % Neutrophils 77.8 % (42.2-75.2); Absolute Basophils 0.1 10^3/uL (0-0.2); Absolute Eosinophils 0.2 10^3/uL (0-0.7); Absolute Immature Granulocytes 0.1 10^3/uL (0-0.05); Absolute Lymphocytes 1.3 10^3/uL (1.2-3.4); Absolute Monocytes 0.9 10^3/uL (0.1-0.6); Absolute Neutrophils 8.7 10^3/uL (1.4-6.5); Hematocrit 37.4 % (37.0-47.0); Hemoglobin 12.6 g/dL (12.0-16.0); Mean Corp Hgb Conc. 33.7 g/dL (33.0-37.0); Mean Corpuscular Hgb 31.2 pg (27.0-31.0); Mean Corpuscular Volume 92.6 fL (81.0-99.0); Mean Platelet Volume 9.2 fL (7.4-10.4); Nucleated Red Blood Cells % 0 %; Platelet Count 246 10^3/uL (130-400); Red Blood Cell Count 4.04 10^6/uL (4.20-5.40); Red Cell Dist. Width 14.6 % (11.5-14.5); White Blood Cell Count 11.2 10^3/uL (4.8-10.8)
--- NOTE | 2024-06-20 14:13 | ED.GENMED ---
History of Present Illness
General
Chief Complaint: Fever
Time Seen by Provider: 06/20/24 13:17
History of Present Illness
History of Present Illness:
71-year-old female presents the emergency department for evaluation of dysuria associated with bilateral lower abdominal pain. She was admitted to this hospital in late May for diverticulitis as well as urinary tract infection. She was treated
with cefdinir and metronidazole with improvement in symptoms. She has a history of frequent UTIs, was prescribed methenamine recently by her primary care physician but had not started this yet. Reports rigors and chills this morning but no
objective fever. No antipyretics taken today. Scheduled to see colorectal surgery next week for follow-up regarding her sigmoid diverticulitis
Past History
Past History
ED Past Medical History: Cancer (Skin CA), GERD, Hypercholesterolemia, Psychiatric (Anxiety, Depression, ) and Other (Arthritis, Diverticulitis, Back pain, Tinging arms and legs. Migraines, Spinal cyst, AAA, UTI, Rosacea)
ED Past Surgical History: Cholecystectomy, Gynecological (Tubal, ), Orthopedic (Right knee replacement, Neck and facial surgery, Spinal fusion) and Other
Social History
Tobacco: Non-smoker
Alcohol: None
Drug: None
Personal:
Living: with family
Family History
Family History: Other (Noncontributory)
Review of Systems
Review of Systems
Allergies reviewed?: Yes
All Other Systems: ROS reviewed and negative except as documented in HPI and ROS
Phy Exam
Physical Exam
Physical Exam:
GEN: Well appearing, NAD, WDWN
Eyes: PERRLA, EOMs intact, no scleral icterus
HENT: NCAT, oral mucosa moist
Lungs: CTAB, no wheezes, rales, rhonchi, normal chest wall excursion
Cardiac: Tachycardic, regular
Abdomen: Soft, no peritoneal signs, no rigidity, moderate tenderness to left lower quadrant
Neuro: AO x 3
MSK: No gross deformity or ecchymosis. No edema. No digital clubbing
Skin: No rashes, petechiae. Normal color, no pallor or jaundice.
Psych: Calm, cooperative, proper hygiene
Sepsis
Sepsis Screening
Sepsis Assessment: Sepsis Ruled Out
Sepsis Screen
Sepsis Screen: Sepsis Ruled Out
Date: 06/20/24
Time: 18:45
Course
Orders/Labs/Results
Orders:
Orders
06/20/24 13:11
Electrocardiogram (*1) Urgent
Reason for Study: Tachycardia
EKG- Treatment ONCE
06/20/24 13:27
CT Abd/Pel (IV only)-DH only Urgent
Comment:
Reason For Exam: lower abd pain
Acetaminophen [Tylenol] 650 mg PO NOW STA
06/20/24 13:28
Lactated Ringers [Lr] 1,000 ml IV BOLUS
06/20/24 13:40
Complete Blood Count/With Diff Urgent
Comprehensive Metabolic Panel Urgent
Lactic Acid Q4H
Comment: CANCEL 2nd LACTIC ACID IF 1st LACTIC ACID IS LESS THAN 2
Urinalysis Reflex To Culture Urgent
Date Specimen was Collected: 06/20/24
Time Specimen was Collected: 13:32
Blood Culture Q30M
BLU Source: Blood/Venous
Specimen Description:
06/20/24 13:50
Blood Culture Q30M
BLU Source: Blood/Venous
Specimen Description:
06/20/24 17:21
Amoxicillin/Clavulanate Potass [Augmentin 200 mg/5 ml] 875 mg PO NOW STA
Abnormal Lab Results
06/20/24
13:40
WBC 11.2 H 10^3/uL
(4.8-10.8)
RBC 4.04 L 10^6/uL
(4.20-5.40)
MCH 31.2 H pg
(27.0-31.0)
RDW 14.6 H %
(11.5-14.5)
Abs Immat Gran (auto) 0.1 H 10^3/uL
(0-0.05)
Absolute Neuts (auto) 8.7 H 10^3/uL
(1.4-6.5)
Absolute Monos (auto) 0.9 H 10^3/uL
(0.1-0.6)
Neutrophils % 77.8 H %
(42.2-75.2)
Lymphocytes % 11.5 L %
(20.5-51.1)
BUN 18 H mg/dl
(7-17)
Glucose 133 H mg/dl
(70-99)
06/20/24 13:40
06/20/24 13:40
Vital Signs
Initial and Last Documented VS:
Initial Vital Signs
Temp Pulse Resp BP Pulse Ox
98.8 F 126 18 84/64 99
06/20/24 13:04 06/20/24 13:04 06/20/24 13:04 06/20/24 13:04 06/20/24 13:04
Last Documented Vital Signs
Temp Pulse Resp BP Pulse Ox
98.8 F 85 16 109/63 95
06/20/24 13:04 06/20/24 16:00 06/20/24 16:00 06/20/24 16:00 06/20/24 16:00
MDM/Problems Addressed
MDM/Problems Addressed:
Patient's imaging shows proctocolitis, uncertain if this could represent a distal diverticulitis versus a different etiology altogether. She has been worked up extensively in the past by GI and has no prior evidence of IBD thus we will treat this
as a new infectious etiology with antibiotics
*Critical Care Note
Total Time (30-74mins, 75-104mins- exclusive of procedures): Not Applicable
ED Attending Note
-
Portions of this chart may have been created with voice recognition software.� Occasional wrong word or��sound alike� substitutions may have occurred due to the inherent limitations of voice recognition software.
Discharge Plan
Departure
Patient Disposition: Home (Routine Discharge)
Date of Disposition: 06/20/24
Time of Disposition: 16:51
Patient with high blood pressure during this ER visit?: No
Discharge Problem:
Proctocolitis
Instructions: Low-fiber diet
Prescriptions:
New
amoxicillin-pot clavulanate 400-57 mg/5 mL suspension for reconstitution
10 ml PO BID 14 Days Qty: 280 0RF
No Action
rosuvastatin 10 MG tablet
10 mg PO QPM
omeprazole 40 MG capsule,delayed release(DR/EC)
40 mg PO DAILY
Artificial Tears
1 drp BOTH EYES BID
melatonin 5 mg Tablet
5 mg PO HS 14 Days Qty: 14 0RF
metronidazole 500 mg tablet
500 mg PO TID 5 Days Qty: 15 0RF
cefdinir 300 mg capsule
300 mg PO Q12H Qty: 10 0RF
polyethylene glycol 3350 [Miralax] 17 gram Powder In Packet
17 g PO DAILY Qty: 30 0RF
lorazepam
0.5 mg PO HS Qty: 0 0RF
acetaminophen [Tylenol] 325 mg tablet
650 mg PO QID PRN (Reason: Pain) Qty: 20 0RF
Referrals:
Brock Pond DO [Family Provider] -
Interventions
Interventions:
*Risk Screen - Suicide Last Done: 06/20/24 16:53
*General Assessment Last Done: 06/20/24 16:53
*Neglect/Abuse Screening Last Done: 06/20/24 16:53
ED- Fall Risk Assessment Last Done: 06/20/24 13:37
*ED COVID-19 Vaccine History Last Done: 06/20/24 13:04
*Nursing Disposition Last Done: 06/20/24 16:53
ED- Neurological Assessment Last Done: 06/20/24 13:37
ED-Skin Assessment Last Done: 06/20/24 13:37
Discharge Date and Time
Discharge Date/Time: 06/20/24 17:54
Print Language: DIVEHI
[2024-06-20 14:15] LABS: Lactic Acid 0.8 mmol/L (0.7-2.0)
[2024-06-20 14:17] LABS: ALT (SGPT) 28 U/L (0-35); AST (SGOT) 24 U/L (14-36); Albumin 4.1 g/dl (3.5-5.0); Alkaline Phosphatase 80 U/L (38-126); Blood Urea Nitrogen 18 mg/dl (7-17); Calcium 9.5 mg/dl (8.4-10.2); Carbon Dioxide 27 mmol/L (22-30); Chloride 102 mmol/L (98-107); Estimated Creatinine Clearance 52 ml/min; Glucose 133 mg/dl (70-99); Sodium 135 mmol/L (135-145); Total Bilirubin 0.6 mg/dl (0.2-1.3); Total Protein 6.8 g/dl (6.3-8.2); eGFR > 60.00
[2024-06-20 14:36] LABS: Urine Albumin Negative (Neg - Trace); Urine Bilirubin Negative (Negative); Urine Character Clear (Clear); Urine Color Yellow; Urine Glucose Negative (Negative); Urine Ketone Negative (Negative); Urine Leukocyte Negative (Negative); Urine Nitrite Negative (Negative); Urine Occult Blood Negative (Negative); Urine Urobilinogen Negative (Neg - 1+)
[2024-06-20] MEDS: AUGMENTIN 200 MG/5 ML 875 MG PO (17:49)
== END 2024-06-20 17:54 | disposition home or self-care (01) ==
LOC: EMR 12:59
PROVIDERS: Emergency Medicine; Physician Assistant; EMERGENCY PHYSICIAN Emergency Medicine; FAMILY PHYSICIAN Family Medicine
DX: K51.30 Ulcerative (chronic) rectosigmoiditis without complications (principal); E78.00 Pure hypercholesterolemia, unspecified; K21.9 Gastro-esophageal reflux disease without esophagitis; Z90.49 Acquired absence of other specified parts of digestive tract; Z85.828 Personal history of other malignant neoplasm of skin; Z87.440 Personal history of urinary (tract) infections
CPT/HCPCS: 96360; 96361; 99284; 74177; 80053; 81003; 83605; 85025; 87040; 93005; Q9967

== ENCOUNTER 2024-09-21 06:07 | Inpatient (IN) | payer MEDICARE, OTHER, SELFPAY ==
[2024-08-13 12:42] VITALS: BMI 24.6
[2024-08-13 13:03] LABS: Hemoglobin 12.9 g/dL (12.0-16.0); Mean Corp Hgb Conc. 33.1 g/dL (33.0-37.0); Mean Corpuscular Hgb 31.5 pg (27.0-31.0); Mean Corpuscular Volume 95.1 fL (81.0-99.0); Mean Platelet Volume 9.7 fL (7.4-10.4); Platelet Count 202 10^3/uL (130-400); Red Cell Dist. Width 13.5 % (11.5-14.5); White Blood Cell Count 6.5 10^3/uL (4.8-10.8)
[2024-08-13 13:34] LABS: Blood Urea Nitrogen 12 mg/dl (7-17); Calcium 9.5 mg/dl (8.4-10.2); Carbon Dioxide 27 mmol/L (22-30); Chloride 104 mmol/L (98-107); Estimated Creatinine Clearance 52 ml/min; Glucose 95 mg/dl (70-99); Potassium 4.4 mmol/L (3.5-5.1); Sodium 142 mmol/L (135-145); eGFR > 60.00
[2024-09-21] VITALS (14 sets, daily range): BP systolic 90–142; BP diastolic 44–69; BMI 24.6
[2024-09-21] MEDS: NORMOSOL-R/PLASMALYTE-A 1000 IV ×2 (06:40→14:06)
[2024-09-21] MEDS: TYLENOL 1000 MG PO (06:42)
--- NOTE | 2024-09-21 11:20 | W.IMMPOSTOP ---
Surgical Immed Post Op Note
-
Primary Surgeon: Stephie
Assisting Surgeon: Jamey, PGY1
Pre-op Diagnosis: Diverticulitis
Post-op Diagnosis: Diverticulitis
Procedure Performed: Laparoscopic sigmoidectomy, sigmoidoscopy, unilateral (LEFT) ureteral stent
Anesthesia Type: General
Specimen / Cultures:
1. Sigmoid colon
Estimated Blood Loss: 11 cc
Complications: 11 cc
Operative Findings:
1. Adhesions to LEFT pelvic side wall, mild wall thickening and disease
2. Distal resection at rectum (tenia splayed, sacral promontory, confirmed endoscopically with no ticks remaining), proximal resection at healthy bowel free of grossly visible inflammation
3. Side-to-end stapled anastomosis with 28 EEA stapler, intact anastomotic rings, negative leak test
4. Bl ureters identified and protected, HARVEY taken with vascular load stapler
[2024-09-21] MEDS: TYLENOL PO ×2 (12:00→16:00)
[2024-09-21] MEDS: SUBLIMAZE 50 MCG IV (12:10)
[2024-09-21] MEDS: ZOFRAN 4 MG IV (13:18)
[2024-09-21] MEDS: SUBLIMAZE 25 MCG IV ×2 (13:23→13:40)
--- NOTE | 2024-09-21 15:01 | PTCARENOTE ---
Received patient from PACU via bed around 1440 in stable condition. Lap sites to abdomen CDI with surgical adhesive. at bedside. Patient and oriented to room. Call stock in reach.
[2024-09-21] MEDS: REFRESH EYE DROPS (PF) 1 DROPS OPHTH (20:39)
[2024-09-21] MEDS: TYLENOL 650 MG PO ×2 (20:40→23:31)
[2024-09-21] MEDS: MELATONIN 5 MG PO (23:31)
[2024-09-22] MEDS: NORMOSOL-R/PLASMALYTE-A 1000 IV ×3 (00:59→21:29)
[2024-09-22 03:02] VITALS: BP 109/52
[2024-09-22] MEDS: TYLENOL 650 MG PO ×4 (03:50→20:59)
[2024-09-22] MEDS: TORADOL 10 MG IV ×2 (06:14→16:27)
[2024-09-22 07:13] VITALS: BP 105/54
--- NOTE | 2024-09-22 07:15 | W.PN.GS2 ---
Today's Communication / Plan
-
-- Trial of clears
-- IVF
-- Maintain Garcia till POD#2
-- Home meds reviewed
-- Labs pending, repeat ordered for tomorrow
-- OOB/ambulate
Assessment / Plan
-
The patient is a 79 yo F POD#1 s/p laparoscopic sigmoidectomy for recurrent diverticulitis
AVSS, BP noted to be soft and HR into 90s
Labs pending
Recovering well overall. No major postoperative concerns. Plan to continue with hydration today given softer BP, will need to follow-up Hb on labs this AM as well as creatinine potentially adjust pain medication and DVT prophylaxis accordingly.
Awaiting return of bowel function, plan for trial of clears, dietary education provided did not push things too much today.
-- Trial of clears
-- IVF
-- Pain control: Tylenol, Toradol, IV Morphine, would start PO Tramadol when taking in more consistent PO
-- Maintain Garcia till POD#2
-- Home meds reviewed
-- DVT: Lovenox
-- GI: Protonix
-- Labs pending, repeat ordered for tomorrow
-- OOB/ambulate
Subjective Data
-
Date of Service: September 22, 2024
Reports issues with sleeping and a slight headache. Denies any dizziness or lightheadedness. RLQ abdominal pain overlying one of her incisions, otherwise pain well-controlled. No nausea or vomiting. Sensation of having to pass flatus, but no
bowel movement or flatus of yet. Afebrile.
Objective Data
-
Intake and Output
09/21/24 09/22/24 09/23/24
06:59 06:59 06:59
Intake Total 2160 / 2160
Output Total 2530 / 2530
Balance -370 / -370
Intake:
Oral fluids 240 / 240
IV fluids (Total) 1919 / 1919
Normal 400 / 400
Output:
Urine, Garcia 2529 / 2529
Vital Signs
Temp Pulse Resp BP Pulse Ox
97.8 F 79 16 109/52 96
09/22/24 03:02 09/22/24 03:02 09/22/24 03:02 09/22/24 03:02 09/22/24 03:02
Calcium 9.5 mg/dl (8.4-10.2) 08/13/24 09:43
Physical Exam
-
Gen: NAD
Abd: soft, tender in RLQ overlying larger port, mild/moderate distension, slight tympany, non-peritoneal, incisions c/d/i - no erythema, ecchymosis or drainage
: light blood tinged urine, no clots
Patient has a garcia catheter: Yes
Patient has a central line: No
[2024-09-22 07:31] LABS: Hematocrit 33.1 % (37.0-47.0); Hemoglobin 11.1 g/dL (12.0-16.0); Mean Corp Hgb Conc. 33.5 g/dL (33.0-37.0); Mean Corpuscular Hgb 31.2 pg (27.0-31.0); Mean Platelet Volume 10.2 fL (7.4-10.4); Platelet Count 174 10^3/uL (130-400); Red Blood Cell Count 3.56 10^6/uL (4.20-5.40); White Blood Cell Count 10.5 10^3/uL (4.8-10.8)
[2024-09-22 07:33] LABS: Blood Urea Nitrogen 8 mg/dl (7-17); Calcium 8.3 mg/dl (8.4-10.2); Carbon Dioxide 27 mmol/L (22-30); Chloride 111 mmol/L (98-107); Estimated Creatinine Clearance 60 ml/min; Glucose 97 mg/dl (70-99); Potassium 4.3 mmol/L (3.5-5.1); Sodium 138 mmol/L (135-145); eGFR > 60.00
[2024-09-22] MEDS: PROTONIX IV 40 MG IV (09:14)
[2024-09-22 11:06] VITALS: BP 112/55
[2024-09-22 15:09] VITALS: BP 114/61
--- NOTE | 2024-09-22 15:43 | CM ---
Reviewed the chart notes and spoke with the patient at the bedside. Patient resides with spouse in a two story home with three steps to enter. The patient has had [facility] in the past, but no SNF. The patient confirmed at this time pharmacy of choice
is [facility] LISSETH continues to be available to patient/family and is monitoring medical plan for needs at discharge.
Plan: Discharge plans will depend on the patient's progress.
[2024-09-22] MEDS: TYLENOL PO (15:44)
[2024-09-22] MEDS: NON-FORMULARY ITEM 1 DROP BOTH EYES ×2 (16:23→21:01)
[2024-09-22] MEDS: LOVENOX 40 MG SC (16:23)
[2024-09-22] MEDS: NON-FORMULARY ITEM BOTH EYES (16:23)
[2024-09-22] MEDS: MELATONIN 5 MG PO (21:00)
[2024-09-22] MEDS: ATIVAN 0.5 MG PO (21:01)
[2024-09-22 23:20] VITALS: BP 108/50
[2024-09-23] MEDS: TYLENOL PO (00:34)
[2024-09-23] MEDS: TYLENOL 650 MG PO ×6 (04:48→23:24)
[2024-09-23] MEDS: TORADOL 10 MG IV (06:21)
[2024-09-23 07:16] VITALS: BP 142/64
[2024-09-23 07:24] LABS: Hematocrit 31.9 % (37.0-47.0); Hemoglobin 10.9 g/dL (12.0-16.0); Mean Corp Hgb Conc. 34.2 g/dL (33.0-37.0); Mean Corpuscular Hgb 31.7 pg (27.0-31.0); Mean Corpuscular Volume 92.7 fL (81.0-99.0); Platelet Count 156 10^3/uL (130-400); Red Blood Cell Count 3.44 10^6/uL (4.20-5.40); Red Cell Dist. Width 14.4 % (11.5-14.5); White Blood Cell Count 6.2 10^3/uL (4.8-10.8)
[2024-09-23 07:46] LABS: Blood Urea Nitrogen 6 mg/dl (7-17); Calcium 8.3 mg/dl (8.4-10.2); Carbon Dioxide 25 mmol/L (22-30); Chloride 109 mmol/L (98-107); Estimated Creatinine Clearance 70 ml/min; Glucose 81 mg/dl (70-99); Magnesium 2.3 mg/dl (1.6-2.3); Potassium 4.1 mmol/L (3.5-5.1); Sodium 139 mmol/L (135-145); eGFR > 60.00
[2024-09-23] MEDS: NORMOSOL-R/PLASMALYTE-A 1000 IV (08:26)
[2024-09-23] MEDS: PROTONIX IV 40 MG IV (08:27)
[2024-09-23] MEDS: NON-FORMULARY ITEM 1 DROP BOTH EYES ×4 (08:27→22:00)
--- NOTE | 2024-09-23 08:53 | W.PN.GS2 ---
Today's Communication / Plan
-
-- Fulls, ADAT to LRD
-- HLIV
-- Garcia removed and voiding
-- Home meds
Assessment / Plan
-
The patient is a 79 yo F POD#2 s/p laparoscopic sigmoidectomy for recurrent diverticulitis
AVSS, HD improved with IVF
Labs with normal WBC, stable Hb, normal kidney function
Recovering well overall. No major postoperative concerns. Advance to fulls, possible LRD for dinner.
-- Fulls, ADAT to LRD
-- HLIV
-- Pain control: Tylenol, Toradol, IV Morphine, would start PO Tramadol when taking in more consistent PO
-- Garcia removed and voiding
-- Home meds
-- DVT: Lovenox
-- GI: Protonix
-- OOB/ambulate
Subjective Data
-
Date of Service: September 23, 2024
No complaints. Feels improved, able to sleep overnight. Pain control improved. No nausea or vomiting. Passing flatus, no BM. Garcia removed and small-volume nonbloody void. Afebrile.
Objective Data
-
Intake and Output
09/22/24 09/23/24 09/24/24
06:59 06:59 06:59
Intake Total 2160 / 2160 2520 / 2520
Output Total 2530 / 2530 3750 / 3750 50 / 50
Balance -370 / -370 -1230 / -1230 -50 / -50
Intake:
Oral fluids 240 / 240 1320 / 1320
IV fluids (Total) 1920 / 1920 1200 / 1200
Normal 400 / 400
Output:
Urine, Garcia 2530 / 2530 3750 / 3750
Urine, Voided 50 / 50
Vital Signs
Temp Pulse Resp BP Pulse Ox
97.9 F 69 17 142/64 98
09/23/24 07:16 09/23/24 07:16 09/23/24 07:16 09/23/24 07:16 09/23/24 07:16
Lab Results
09/23/24 05:55
09/23/24 05:55
Calcium 8.3 mg/dl (8.4-10.2) L 09/23/24 05:55
Magnesium 2.3 mg/dl (1.6-2.3) 09/23/24 05:55
Physical Exam
-
Gen: NAD
Abd: soft, mild tenderness, ND, non-peritoneal, incisions c/d/i - no erythema or drainage, mild ecchymosis at larger incisions
Patient has a garcia catheter: No
Patient has a central line: No
--- NOTE | 2024-09-23 14:38 | CM ---
Patient seen at bedside in [address] [place] [address] with patient son/caregiver. Patient son requesting hospital bed. Liaison from [facility] is working with physician to arrange for hospital bed. CM will continue to follow for discharge planning needs.
Plan: home with [facility]; pending hospital bed.
--- NOTE | 2024-09-23 14:46 | CM ---
Patient seen at bedside in [address] [place] [address]. Patient continues to think about [facility] supports and indicated that she was doing well at this time. CM will continue to follow for discharge planning needs.
Plan; home with no needs vs home with [facility]
[2024-09-23 15:07] VITALS: BP 125/59
[2024-09-23] MEDS: LOVENOX 40 MG SC (16:31)
[2024-09-23] MEDS: CRESTOR 10 MG PO (16:34)
[2024-09-23] MEDS: MELATONIN 5 MG PO (21:59)
[2024-09-23] MEDS: ATIVAN 0.5 MG PO (22:01)
[2024-09-23 23:27] VITALS: BP 132/65
[2024-09-24] MEDS: TYLENOL 650 MG PO ×5 (03:57→20:51)
[2024-09-24] MEDS: PROTONIX IV 40 MG IV (08:05)
[2024-09-24] MEDS: NON-FORMULARY ITEM 1 DROP BOTH EYES ×4 (08:06→21:47)
--- NOTE | 2024-09-24 08:12 | W.PN.GS2 ---
Today's Communication / Plan
-
-- No changes, awaiting consistent ROBF
Assessment / Plan
-
The patient is a 79 yo F POD#3 s/p laparoscopic sigmoidectomy for recurrent diverticulitis
AVSS
Recovering well overall. No major postoperative concerns. Awaiting consistent return of bowel function.
-- LRD
-- HLIV
-- Pain control: Tylenol, Toradol, IV Morphine, would start PO Tramadol when taking in more consistent PO
-- Garcia removed and voiding
-- Home meds
-- DVT: Lovenox
-- GI: Protonix
-- OOB/ambulate
-- Dispo pending bowel function
Subjective Data
-
Date of Service: September 24, 2024
No complaints. Slept well. Pain well-controlled. Passing flatus. Reports passing small volume of clot, but no significant BM. No dizziness or lightheadedness. No nausea or vomiting, tolerated low residue diet. Afebrile. Voiding. Ambulating.
Objective Data
-
Intake and Output
09/23/24 09/24/24 09/25/24
06:59 06:59 06:59
Intake Total 2520 / 2520 2160 / 2160
Output Total 3750 / 3750 1350 / 1350
Balance -1230 / -1230 810 / 810
Intake:
Oral fluids 1320 / 1320 2160 / 2160
IV fluids (Total) 1200 / 1200
Output:
Urine, Garcia 3750 / 3750
Urine, Voided 1350 / 1350
Other:
Number of approximated MODERATE 2
amounts of urine
Vital Signs
Temp Pulse Resp BP Pulse Ox
98.1 F 69 16 132/65 96
09/23/24 23:27 09/23/24 23:27 09/23/24 23:27 09/23/24 23:27 09/23/24 23:27
Lab Results
09/23/24 05:55
09/23/24 05:55
Calcium 8.3 mg/dl (8.4-10.2) L 09/23/24 05:55
Magnesium 2.3 mg/dl (1.6-2.3) 09/23/24 05:55
Physical Exam
-
Gen: NAD
Abd: soft, NT, ND, non-peritoneal, incisions c/d/i - no erythema, ecchymosis or drainage
Patient has a garcia catheter: No
Patient has a central line: No
[2024-09-24 08:30] VITALS: BP 136/69
--- NOTE | 2024-09-24 13:55 | CM ---
Reviewed the chart notes and spoke with the patient and her spouse at the bedside. CM continues to be available to patient/family and is monitoring medical plan for needs at discharge.
Plan: Discharge to home when medically stable. No needs anticipated at this time.
[2024-09-24 15:30] VITALS: BP 130/56
[2024-09-24] MEDS: LOVENOX 40 MG SC (16:51)
[2024-09-24] MEDS: CRESTOR 10 MG PO (16:54)
[2024-09-24] MEDS: ENTEREG 12 MG PO (20:51)
[2024-09-24] MEDS: ATIVAN 0.5 MG PO (21:37)
[2024-09-24] MEDS: ANESTHETIC LOZENGE 1 LOZENGE PO (21:37)
[2024-09-24] MEDS: MELATONIN 5 MG PO (21:37)
[2024-09-24 23:00] VITALS: BP 133/69
[2024-09-25] MEDS: TYLENOL PO (00:36)
[2024-09-25] MEDS: TYLENOL 650 MG PO ×2 (04:53→08:01)
--- NOTE | 2024-09-25 04:58 | PTCARENOTE ---
Pt reports BM overnight. Pt states no blood and moderate brown amount.
[2024-09-25] MEDS: ANESTHETIC LOZENGE 1 LOZENGE PO (05:01)
[2024-09-25 07:35] VITALS: BP 115/55
[2024-09-25] MEDS: ENTEREG 12 MG PO (08:01)
[2024-09-25] MEDS: PROTONIX IV 40 MG IV (08:01)
[2024-09-25] MEDS: NON-FORMULARY ITEM 1 DROP BOTH EYES (08:02)
--- NOTE | 2024-09-25 08:19 | W.PN.GS2 ---
Addendum entered and electronically signed by Yordy Card MD 09/25/24 10:49:
Patient seen and examined. Agree with assessment plan as documented below.
No complaints. Pain well-controlled. Tolerating a low residue diet. No nausea or vomiting. Passing flatus and had multiple nonbloody bowel movements overnight.
Gen; NAD
Abd: soft, mild tenderness at incision, ND, non-peritoneal, incisions c/d/i - no erythema, ecchymosis or drainage
The patient is a 79 yo F POD#4 s/p laparoscopic sigmoidectomy for recurrent diverticulitis
AVSS
Recovering well overall. No major postoperative concerns.
Tolerating diet and passing stool/flatus
-- LRD
-- Pain control: Tylenol, Toradol, PO Tramadol
-- Home meds
-- DVT: Lovenox
-- GI: Protonix
-- OOB/ambulate
-- D/C to home
Original Note:
Today's Communication / Plan
-
Dispo planning
Assessment / Plan
-
The patient is a 79 yo F POD#4 s/p laparoscopic sigmoidectomy for recurrent diverticulitis
AVSS
Recovering well overall. No major postoperative concerns.
Tolerating diet and passing stool/flatus
-- LRD
-- HLIV
-- Pain control: Tylenol, Toradol, PO Tramadol
-- Home meds
-- DVT: Lovenox
-- GI: Protonix
-- OOB/ambulate
D/C to home
Subjective Data
-
Date of Service: September 25, 2024
Patient seen and examined at bedside. OOB to chair. Tolerating breakfast. Denies n/v. Passed several soft, formed stools. Minimal pain to abd, some incisional soreness. Feels ready for d/c.
Objective Data
-
Intake and Output
09/24/24 09/25/24 09/26/24
06:59 06:59 06:59
Intake Total 2160 / 2160 1200 / 1200
Output Total 1350 / 1350
Balance 810 / 810 1200 / 1200
Intake:
Oral fluids 2160 / 2160 1200 / 1200
Output:
Urine, Voided 1350 / 1350
Other:
Number of approximated MODERATE 2 2
amounts of urine
Vital Signs
Temp Pulse Resp BP Pulse Ox
98.2 F 71 16 115/55 97
09/25/24 07:35 09/25/24 07:35 09/25/24 07:35 09/25/24 07:35 09/25/24 07:35
Lab Results
09/23/24 05:55
09/23/24 05:55
Calcium 8.3 mg/dl (8.4-10.2) L 09/23/24 05:55
Magnesium 2.3 mg/dl (1.6-2.3) 09/23/24 05:55
Physical Exam
-
Gen: NAD
Abd: soft, NT, ND, non-peritoneal, incisions c/d/i - no erythema, ecchymosis or drainage
Patient has a garcia catheter: No
Patient has a central line: No
--- NOTE | 2024-09-25 10:00 | CM ---
CM reviewed medical records. Plan for discharge to home with no needs.
PLAN: home no needs.
--- NOTE | 2024-09-25 10:26 | W.DCSUMMARY ---
Documented by User: HINA Hahn 09/25/24 10:28
Discharge Summary
Discharge Data
Date of Admission: 09/21/24
Date of Discharge: 09/25/24
-
Pending Results: No
Hospital Course
Ms Jeff is a 79 yo female with a history of diverticulitis who presented for elective surgical management with laparoscopic sigmoidectomy with left ureteral stent placed by urology intraoperatively for identification of the ureter. She tolerated
the procedure will without complication. Stent and garcia were removed post operatively with successful voiding trial. She had good bowel recovery and diet was able to be advanced and well tolerated with passage of stools and flatus. Pain was minimal
by date of discharge and well controlled with PO analgesics. She was discharged to home with outpatient follow up planned in the coming weeks.
Discharge Plan
-
Patient Disposition: Home (Routine Discharge)
Discharge Diagnosis/Procedures: Laparoscopic sigmoidectomy
Condition: Good
Diet: Low Fiber
Activity: No strenuous activity
Additional Activity: No heavy lifting (>20 lbs) or strenuous activities for 4 weeks postoperatively
Driving Restrictions: No driving if taking narcotics
Bathing Restrictions: OK to Shower
Wound Care: Keep incisions clean and dry. Glue will flake off in 2 to 3 weeks. Stitches will dissolve. Use ice to the abdomen to reduce any bruising or swelling.
Activity Restrictions/Additional Instructions:
Call for fevers (>100.5), nausea or vomiting, worsening abdominal pain, issues with constipation (if no bowel movement 24 hours take MiraLAX daily)
Referrals:
Brock oPnd DO [Family Provider] -
Yordy Card MD [Active] - in two to four weeks
Prescriptions:
New
tramadol 50 mg tablet
25 - 50 mg PO Q6HPRN PRN (Reason: severe pain/breakthrough pain) Qty: 8 0RF
ibuprofen 200 mg tablet
400 - 600 mg PO Q6HPRN PRN (Reason: moderate pain) Qty: 1 0RF
Continued
rosuvastatin 10 MG tablet
10 mg PO QPM
omeprazole 40 MG capsule,delayed release(DR/EC)
40 mg PO DAILY
melatonin 5 mg Tablet
5 mg PO HS 14 Days Qty: 14 0RF
acetaminophen 500 mg Tablet
500 mg PO Q6H PRN (Reason: back pain)
estradiol 0.01 % (0.1 mg/gram) Cream
1 appful VAGINAL . 2X A WEEK
Miebo (PF) 100 % Drops
1 drp BOTH EYES QID
Probiotic
2 cap PO DAILY
cranberry
2 tab PO DAILY
lorazepam 0.5 mg Tablet
0.5 mg PO HS
Discontinued
Bowel Prep
1 dose PO DIRECTED
peg 3350-electrolytes [Golytely] 236-22.74-6.74 -5.86 gram Recon Soln
240 ml PO DIRECTED
Patient Comments:
start prep evening before procedure
Discharge Orders:
Discharge Patient (As Directed); Ordered 09/25/24
Ordered By: Anyi Briceño
Discharge Date and Time
Discharge Date/Time: 09/25/24 10:42
Print Language: VIETNAMESE

Documented by User: Yordy Card MD 09/25/24 10:50
Discharge Summary
Discharge Data
Date of Admission: 09/21/24
Date of Discharge: 09/25/24
Discharge Plan
-
Patient Disposition: Home (Routine Discharge)
Discharge Diagnosis/Procedures: Laparoscopic sigmoidectomy
Condition: Good
Diet: Low Fiber
Activity: No strenuous activity
Additional Activity: No heavy lifting (>20 lbs) or strenuous activities for 4 weeks postoperatively
Driving Restrictions: No driving if taking narcotics
Bathing Restrictions: OK to Shower
Wound Care: Keep incisions clean and dry. Glue will flake off in 2 to 3 weeks. Stitches will dissolve. Use ice to the abdomen to reduce any bruising or swelling.
Activity Restrictions/Additional Instructions:
Call for fevers (>100.5), nausea or vomiting, worsening abdominal pain, issues with constipation (if no bowel movement 24 hours take MiraLAX daily)
Referrals:
Brock Pond DO [Family Provider] -
Yordy Card MD [Active] - in two to four weeks
Prescriptions:
New
tramadol 50 mg tablet
25 - 50 mg PO Q6HPRN PRN (Reason: severe pain/breakthrough pain) Qty: 8 0RF
ibuprofen 200 mg tablet
400 - 600 mg PO Q6HPRN PRN (Reason: moderate pain) Qty: 1 0RF
Continued
rosuvastatin 10 MG tablet
10 mg PO QPM
omeprazole 40 MG capsule,delayed release(DR/EC)
40 mg PO DAILY
melatonin 5 mg Tablet
5 mg PO HS 14 Days Qty: 14 0RF
acetaminophen 500 mg Tablet
500 mg PO Q6H PRN (Reason: back pain)
estradiol 0.01 % (0.1 mg/gram) Cream
1 appful VAGINAL . 2X A WEEK
Miebo (PF) 100 % Drops
1 drp BOTH EYES QID
Probiotic
2 cap PO DAILY
cranberry
2 tab PO DAILY
lorazepam 0.5 mg Tablet
0.5 mg PO HS
Discontinued
Bowel Prep
1 dose PO DIRECTED
peg 3350-electrolytes [Golytely] 236-22.74-6.74 -5.86 gram Recon Soln
240 ml PO DIRECTED
Patient Comments:
start prep evening before procedure
Discharge Orders:
Discharge Patient (As Directed); Ordered 09/25/24
Ordered By: Anyi Briceño
Discharge Date and Time
Discharge Date/Time: 09/25/24 10:42
Print Language: VIETNAMESE
== END 2024-09-25 10:42 | disposition home or self-care (01) | DRG 331 ==
LOC: 2 SOUTH 06:07
PROVIDERS: Nurse Practitioner Family; ADMITTING PHYSICIAN Surgery; FAMILY PHYSICIAN Family Medicine
PROC: 0DBN4ZZ Excision of Sigmoid Colon, Percutaneous Endoscopic Approach (ICD-10-PCS; 2024-09-21)
DX: K57.92 Diverticulitis of intestine, part unspecified, without perforation or abscess without bleeding (principal); N73.6 Female pelvic peritoneal adhesions (postinfective)
CPT/HCPCS: 88307; 36415; 80048; 83735; 85027; 93005; A4300

== ENCOUNTER 2024-10-06 08:39 | Inpatient (IN) | payer MEDICARE, OTHER, SELFPAY ==
[2024-10-06 05:00] VITALS: BP 119/56
--- NOTE | 2024-10-06 05:27 | ED.GENMED ---
History of Present Illness
<Gladys Horn DO - Last Filed: 10/06/24 05:37>
General
Chief Complaint: Abdominal Pain
Source: patient, spouse and previous hospital records (Recent hospitalization September 21 to September 25 undergoing laparoscopic sigmoidectomy)
Exam Limitations: none
Time Seen by Provider: 10/06/24 04:57
Nursing documentation reviewed up to this point in time: agreed with
History of Present Illness
History of Present Illness:
This is a 79-year-old woman who resides at home with her . Recently hospitalized September 21 to September 25 for elective laparoscopic sigmoidectomy for recurrent diverticulitis.
Patient notes since discharge home she has had persistent, moderate lower abdominal pain more so when she gets up and moves around. Has been taking tramadol once per day. She has also been taking Tylenol 2-3 times per day and more recently over
the past 3 to 4 days she has developed a fever more so in the evening hours with Tmax of 101 �F.
She has had an intermittent cough over the past 2 months and was evaluated by her PCP over a week ago, was placed on a Z-Jose which she finished 4 days ago as well as cough syrup. Intermittent dry cough has been unchanged and more recently over the
past few days she has had significant dyspnea on exertion. She denies leg pain or swelling. No chest pain or palpitations.
Tonight she awoke with some wetness on her nightgown and noticed some bloody drainage from her lower midline abdominal incision.
She states her appetite has been somewhat poor but she has had no nausea nor vomiting. She has been moving her bowels, no diarrhea nor constipation.
She has had no difficulty urinating, denies dysuria and urgency and or hematuria.
Past History
<Gladys Horn DO - Last Filed: 10/06/24 05:37>
Past History
ED Past Medical History: Cancer (Skin CA), GERD, Hypercholesterolemia, Psychiatric (Anxiety, Depression, ) and Other (Arthritis, Diverticulitis, Back pain, Tinging arms and legs. Migraines, Spinal cyst, AAA, UTI, Rosacea)
ED Past Surgical History: Bowel resection (Laparoscopic sigmoidectomy September 21, 2024), Cholecystectomy, Gynecological (Tubal, ), Orthopedic (Right knee replacement, Neck and facial surgery, Spinal fusion) and Other
Social History
Tobacco: Non-smoker
Alcohol: None
Drug: None
Personal:
Living: with family
Employment: Retired
Family History
Family History: Other (Noncontributory)
Phy Exam
<Gladys Horn DO - Last Filed: 10/06/24 05:37>
Physical Exam
Physical Exam:
GENERAL: 79-year-old woman appears her stated age, awake and alert, pleasant, appears in no acute distress. Borderline low-grade fevers noted. Accompanied by her .
EYE: . anicteric
NECK: Supple, nontender, no meningismus, no significant adenopathy.
ENT: oral mucosa is moist. No rhinorrhea.
CARDIAC: Regular rate and rhythm. no murmur.
LUNGS: Clear breath sounds bilaterally, no acute respiratory distress, no wheezes/rales/rhonchi
ABDOMEN: Rotund, soft, nondistended, midline horizontal lower abdominal incision is moderately firm and exquisitely tender to palpation with moderate erythema superior aspect of this incision and there is a pinpoint area mid incision with scant
serosanguineous drainage. Bilateral lateral abdominal laparoscopic port incisions are dry and intact and nontender. no cvat. normoactive BS.
NEUROLOGICAL: Alert and oriented x3, no focal neuro deficits.
SKIN: Warm and dry, mildly pale in color, skin intact. No rash.
MUSCULOSKELETAL: No C/C/E. peripheral pulses are full and equal b/l. No palpable tenderness.
PSYCH: Normal and appropriate interaction.
Sepsis
<Gladys Horn DO - Last Filed: 10/06/24 05:37>
Sepsis Screen
Sepsis Screen: Possible Sepsis
Date: 10/06/24
Time:
<Javy Boyer Jr., PADeejayC - Last Filed: 10/06/24 07:29>
Sepsis Screening
Sepsis Assessment: Sepsis Ruled Out
Sepsis Screen
Sepsis Screen: Sepsis Ruled Out
Date: 10/06/24
Time: 07:29
Course
<Gladys Horn DO - Last Filed: 10/06/24 05:37>
Orders/Labs/Results
Orders:
Orders
10/06/24 05:07
IV Insert/Care/Rem.- Treatment PRN
10/06/24 05:10
Complete Blood Count/With Diff Urgent
Comprehensive Metabolic Panel Urgent
Lipase Urgent
10/06/24 05:25
CT Pe/abd/pel W Urgent
Comment: changed to combined
Reason For Exam: BAE x few days
10/06/24 05:36
0.9% Sodium Chloride 1000 ml [Nss] 1,000 ml IV BOLUS
Acetaminophen 1000MG/100Ml [Ofirmev] 1,000 mg in 100 ml IV ONCE
Acetaminophen IV Indication:: ED Narcotic Naive Pt-ONCE
10/06/24 06:50
Lactic Acid Urgent
Blood Culture Q30M
BLU Source: Blood/Venous
Specimen Description:
10/06/24 06:52
Blood Culture Q30M
BLU Source: Blood/Venous
Specimen Description:
10/06/24 07:16
Wound Culture [Wound/Abscess/Other Culture] Urgent
BLU Source: Surgical Wound
Specimen Description:
Date Specimen was Collected: 10/06/24
Time Specimen was Collected: 07:20
Vancomycin [Vancocin] 1,500 mg 0.9% Sodium Chloride 500 ml [Nss] 500 ml IV NOW
Abnormal Lab Results
10/06/24
05:10
RBC 3.67 L 10^6/uL
(4.20-5.40)
Hgb 11.3 L g/dL
(12.0-16.0)
Hct 32.6 L %
(37.0-47.0)
Abs Immat Gran (auto) 0.1 H 10^3/uL
(0-0.05)
Absolute Monos (auto) 0.8 H 10^3/uL
(0.1-0.6)
Immature Gran % 1.0 H %
(0-0.5)
Lymphocytes % 20.3 L %
(20.5-51.1)
Monocytes % 9.9 H %
(1.7-9.3)
Glucose 120 H mg/dl
(70-99)
10/06/24 05:10
10/06/24 05:10
Vital Signs
Initial and Last Documented VS:
Initial Vital Signs
Temp Pulse Resp Pulse Ox
99.1 F 77 20 98
10/06/24 04:43 10/06/24 04:43 10/06/24 04:43 10/06/24 04:43
Last Documented Vital Signs
Temp Pulse Resp BP Pulse Ox
99.1 F 76 17 119/56 99
10/06/24 04:43 10/06/24 07:15 10/06/24 07:15 10/06/24 05:00 10/06/24 07:15
<Javy Boyer Jr., PA-C - Last Filed: 10/06/24 07:29>
Orders/Labs/Results
Orders:
Orders
10/06/24 05:07
IV Insert/Care/Rem.- Treatment PRN
10/06/24 05:10
Complete Blood Count/With Diff Urgent
Comprehensive Metabolic Panel Urgent
Lipase Urgent
10/06/24 05:25
CT Pe/abd/pel W Urgent
Comment: changed to combined
Reason For Exam: BAE x few days
10/06/24 05:36
0.9% Sodium Chloride 1000 ml [Nss] 1,000 ml IV BOLUS
Acetaminophen 1000MG/100Ml [Ofirmev] 1,000 mg in 100 ml IV ONCE
Acetaminophen IV Indication:: ED Narcotic Naive Pt-ONCE
10/06/24 06:50
Lactic Acid Urgent
Blood Culture Q30M
BLU Source: Blood/Venous
Specimen Description:
10/06/24 06:52
Blood Culture Q30M
BLU Source: Blood/Venous
Specimen Description:
10/06/24 07:16
Wound Culture [Wound/Abscess/Other Culture] Urgent
BLU Source: Surgical Wound
Specimen Description:
Date Specimen was Collected: 10/06/24
Time Specimen was Collected: 07:20
Vancomycin [Vancocin] 1,500 mg 0.9% Sodium Chloride 500 ml [Nss] 500 ml IV NOW
Abnormal Lab Results
10/06/24
05:10
RBC 3.67 L 10^6/uL
(4.20-5.40)
Hgb 11.3 L g/dL
(12.0-16.0)
Hct 32.6 L %
(37.0-47.0)
Abs Immat Gran (auto) 0.1 H 10^3/uL
(0-0.05)
Absolute Monos (auto) 0.8 H 10^3/uL
(0.1-0.6)
Immature Gran % 1.0 H %
(0-0.5)
Lymphocytes % 20.3 L %
(20.5-51.1)
Monocytes % 9.9 H %
(1.7-9.3)
Glucose 120 H mg/dl
(70-99)
10/06/24 05:10
10/06/24 05:10
Vital Signs
Initial and Last Documented VS:
Initial Vital Signs
Temp Pulse Resp Pulse Ox
99.1 F 77 20 98
10/06/24 04:43 10/06/24 04:43 10/06/24 04:43 10/06/24 04:43
Last Documented Vital Signs
Temp Pulse Resp BP Pulse Ox
99.1 F 76 17 119/56 99
10/06/24 04:43 10/06/24 07:15 10/06/24 07:15 10/06/24 05:00 10/06/24 07:15
<Gladys Horn DO - Last Filed: 10/06/24 05:37>
MDM/Problems Addressed
Differential Diagnosis Includes:
Concern for postop wound infection, seroma.
Patient has had a somewhat chronic cough but more recently over the past few days dyspnea on exertion and with recent surgery must consider PE. Other consideration is pneumonia, bronchitis, GERD.
Intermittent fever over the past few days, concern for sepsis.
Will check labs including lactic acid, blood cultures.
Will check CT of the chest/PE study as well as CT abdomen pelvis with IV contrast.
Will initiate IV fluids, medicate for pain.
<Javy Boyer Jr., PA-C - Last Filed: 10/06/24 07:29>
*Critical Care Note
Total Time (30-74mins, 75-104mins- exclusive of procedures): Not Applicable
<Javy Boyer Jr., PA-C - Last Filed: 10/06/24 07:29>
Update Note
Update Note:
0700: CT scan resulted showing surrounding cellulitis and possible abscess. Considering this plan to start IV antibiotics and admit. Patient's surgeon was directly notified of the case. Wound culture was also sent, though only a small amount of
serosanguineous fluid was able to be expressed from the wound. Stable while in the ER here.
ED Attending Note
<Gladys Horn DO - Last Filed: 10/06/24 05:37>
-
Portions of this chart may have been created with voice recognition software.� Occasional wrong word or��sound alike� substitutions may have occurred due to the inherent limitations of voice recognition software.
Discharge Plan
Departure
Patient Disposition: Admit
Date of Disposition: 10/06/24
Time of Disposition: 07:28
Admit to: Med/Surg
Admit to doctor: [place]
Presentation/result/management discussed w/ accepting MD/DO: Hospitalist
Patient with high blood pressure during this ER visit?: No
Condition: Good
Covid-19: Not Applicable
Discharge Problem:
Infected surgical wound
Prescriptions:
No Action
rosuvastatin 10 MG tablet
10 mg PO QPM
omeprazole 40 MG capsule,delayed release(DR/EC)
40 mg PO DAILY
melatonin 5 mg Tablet
5 mg PO HS 14 Days Qty: 14 0RF
acetaminophen 500 mg Tablet
500 mg PO Q6H PRN (Reason: back pain)
estradiol 0.01 % (0.1 mg/gram) Cream
1 appful VAGINAL . 2X A WEEK
Miebo (PF) 100 % Drops
1 drp BOTH EYES QID
Probiotic
2 cap PO DAILY
cranberry
2 tab PO DAILY
lorazepam 0.5 mg Tablet
0.5 mg PO HS
tramadol 50 mg tablet
25 - 50 mg PO Q6HPRN PRN (Reason: severe pain/breakthrough pain) Qty: 8 0RF
ibuprofen 200 mg tablet
400 - 600 mg PO Q6HPRN PRN (Reason: moderate pain) Qty: 1 0RF
Referrals:
Brock Pond DO [Family Provider] -
Interventions
Interventions:
*Risk Screen - Suicide Last Done: 10/06/24 04:43
*General Assessment Last Done: 10/06/24 04:43
*Neglect/Abuse Screening Last Done: 10/06/24 04:43
*ED- Fall Risk Assessment Last Done: 10/06/24 04:43
*ED COVID-19 Vaccine History Last Done: 10/06/24 04:43
JE-Jdtbaj-Ztanuozylh Assessment Last Done: 10/06/24 04:53
Discharge Date and Time
Print Language: NORWEGIAN
[2024-10-06 05:30] LABS: % Basophils 0.7 % (0-2); % Lymphocytes 20.3 % (20.5-51.1); % Monocytes 9.9 % (1.7-9.3); % Neutrophils 67.1 % (42.2-75.2); Absolute Basophils 0.1 10^3/uL (0-0.2); Absolute Eosinophils 0.1 10^3/uL (0-0.7); Absolute Immature Granulocytes 0.1 10^3/uL (0-0.05); Absolute Lymphocytes 1.7 10^3/uL (1.2-3.4); Absolute Monocytes 0.8 10^3/uL (0.1-0.6); Absolute Neutrophils 5.6 10^3/uL (1.4-6.5); Hematocrit 32.6 % (37.0-47.0); Hemoglobin 11.3 g/dL (12.0-16.0); Mean Corp Hgb Conc. 34.7 g/dL (33.0-37.0); Mean Corpuscular Hgb 30.8 pg (27.0-31.0); Mean Corpuscular Volume 88.8 fL (81.0-99.0); Mean Platelet Volume 9.7 fL (7.4-10.4); Nucleated Red Blood Cells % 0 %; Platelet Count 383 10^3/uL (130-400); Red Blood Cell Count 3.67 10^6/uL (4.20-5.40); Red Cell Dist. Width 13.6 % (11.5-14.5); White Blood Cell Count 8.4 10^3/uL (4.8-10.8)
[2024-10-06 05:54] LABS: ALT (SGPT) 14 U/L (0-35); AST (SGOT) 15 U/L (14-36); Albumin 3.9 g/dl (3.5-5.0); Alkaline Phosphatase 66 U/L (38-126); Blood Urea Nitrogen 11 mg/dl (7-17); Calcium 9.6 mg/dl (8.4-10.2); Carbon Dioxide 24 mmol/L (22-30); Chloride 103 mmol/L (98-107); Glucose 120 mg/dl (70-99); Lipase 58 U/L (23-300); Potassium 4.5 mmol/L (3.5-5.1); Sodium 135 mmol/L (135-145); Total Bilirubin 0.7 mg/dl (0.2-1.3); Total Protein 6.5 g/dl (6.3-8.2); eGFR > 60.00
[2024-10-06] MEDS: NSS 1000 IV ×2 (06:33→11:24)
[2024-10-06] MEDS: OFIRMEV 100 IV (06:34)
[2024-10-06 06:35] VITALS: BMI 24.1
[2024-10-06] MEDS: VANCOCIN 530 MG IV (07:44)
--- NOTE | 2024-10-06 08:12 | CON.GS ---
Consultation
-
Date/Time Consultation Requested: 10/06/2024
Date/Time Consultation Performed: 10/06/2024
Medical History
-
Chief Complaint: Lower abdominal pain
History of Present Illness:
Patient is a 79 yo F with a PMH of recurrent diverticulitis s/p laparoscopic sigmoidectomy on 09/21/2024 who presents with lower abdominal discomfort. Ms. Jeff states that she was recovering well. Over the last few days she has had increasing
fatigue and difficulty with ambulation related to some lower abdominal discomfort. Yesterday she developed some drainage from her lower midline incision prompting presentation to the ER. She notes fevers up to 101. No nausea or vomiting.
Continues to move her bowels without any issues. Of note, she has also had issues with a URI and has been treated by her PCP with a Z-Jose. She does note some increased shortness of breath, but denies any chest pain or palpitations. No urinary
symptoms.
Past Medical History
Past Medical History: Cancer (Nonmelanotic skin cancer), GERD, HTN, Psychiatric (Anxiety/depression) and Other (Arthritis, migraines, AAA)
Past Surgical History: Bowel Resection (Laparoscopic sigmoidectomy), Cholecystectomy, Gynecological (Tubal ligation), Orthopedic (RIGHT knee replacement, spinal fusion) and Other (Skin cancer excision)
Social History
Tobacco: Non-Smoker
Alcohol: None
Drug: None
Personal:
Living: With Family
Family History
Family History: Reviewed & Noncontributory
Allergies / Home Medications
Allergy/AdvReac Type Severity Reaction Status Date / Time
codeine Allergy Nausea / Verified 10/06/24 04:42
Vomiting
hydromorphone [From Dilaudid] Allergy hallucinati Verified 10/06/24 04:42
ons
�Medication �Instructions �Recorded �Confirmed �Type
rosuvastatin 10 mg tablet 10 mg PO QPM High cholesterol 03/24/15 10/06/24 History
omeprazole 40 mg capsule,delayed 40 mg PO DAILY GERD 01/20/21 10/06/24 History
release
melatonin 5 mg tablet 5 mg PO HS 14 days #14 tabs 06/08/24 10/06/24 Rx
Probiotic 2 cap PO DAILY Gastrointestinal 08/26/24 10/06/24 History
Issue
acetaminophen 500 mg tablet 500 mg PO Q6H PRN back pain 08/26/24 10/06/24 History
cranberry 2 tab PO DAILY Supplement 08/26/24 10/06/24 History
estradiol 0.01% (0.1 mg/gram) 1 appful vaginal . 2X A WEEK 08/26/24 10/06/24 History
vaginal cream Hormonal Agent
lorazepam 0.5 mg tablet 0.5 mg PO HS Mental Health/Anxiety 08/26/24 10/06/24 History
perfluorohexyloctane (PF) 100 % 1 drp BOTH EYES QID dry eyes 08/26/24 10/06/24 History
eye drops (Miebo (PF))
ibuprofen 200 mg tablet 400 - 600 mg (2 - 3 x 200 mg) PO 09/25/24 10/06/24 Rx
Q6HPRN PRN moderate pain #1 tab
tramadol 50 mg tablet 25 - 50 mg (0.5 - 1 x 50 mg) PO 09/25/24 10/06/24 Rx
Q6HPRN PRN severe
pain/breakthrough pain #8 tabs
Review of Systems
-
A 10 point review of systems was completed, and was negative except as per HPI.
Physical Exam
Vital Signs
Temp Pulse Resp BP Pulse Ox
99.1 F 76 17 119/56 99
10/06/24 04:43 10/06/24 07:15 10/06/24 07:15 10/06/24 05:00 10/06/24 07:15
10/05/24 10/06/24 10/07/24
06:59 06:59 06:59
Actual Weight 65.6 kg
Body Mass Index (BMI) 24.1
Lab Results
10/06/24 05:10
10/06/24 05:10
WBC 8.4 10^3/uL (4.8-10.8) 10/06/24 05:10
Hgb 11.3 g/dL (12.0-16.0) L 10/06/24 05:10
Hct 32.6 % (37.0-47.0) L 10/06/24 05:10
Plt Count 383 10^3/uL (130-400) 10/06/24 05:10
Abs Immat Gran (auto) 0.1 10^3/uL (0-0.05) H 10/06/24 05:10
Neutrophils % 67.1 % (42.2-75.2) 10/06/24 05:10
Physical Exam
General: Well Developed, Well Nourished and No Apparent Distress
HEENT: Normocephalic and Anicteric
Respiratory: Non Labored Respirations
Cardiac: Regular Rhythm
GI: Soft, Non Distended, Tender (Mild to moderate tenderness in lower abdomen), Incisions (Lower Pfannenstiel incision with mild blanching erythema, palpable induration, no palpable fluctuance, Q-tip used to create small opening in incision at area
of maximal erythema with release of mild amount of serous fluid, packing) and Other (Nonperitoneal)
Musculoskeletal: No Edema
Skin: Warm and Dry
Neuro: Nonfocal/Grossly Intact
Data Reviewed
-
CT Scan: Image Personally Visualized and interpreted and Report Reviewed by me
Labs: Labs Reviewed by me
Old Records: Reviewed
Assessment / Plan
-
Patient is a 79 yo F POD#12 s/p lap sigmoidectomy p/w skin and soft tissue infection at site of Pfannenstiel incision
CT scan imaging reviewed. No evidence of an intra-abdominal component to her infection. Fascia appears intact. Anastomosis appears well-healed without any surrounding inflammation or air. Wound probed at bedside without release of significant
amount of fluid. Firmness underlying incision most likely related to indurated fat, possible hematoma though little ecchymosis related to prior DVT ppx injections. Culture obtained. Plan for admission for IV antibiotics. Pain control with
Tylenol and Ibuprofen as needed. Diet as tolerated. All questions answered.
-- LRD
-- Pain control: Tylenol and Ibuprofen
-- Abx: Vancomycin and Zosyn, tailor based on culture results
-- Local wound care: Change packing daily, cover with dry gauze
--- NOTE | 2024-10-06 08:12 | HPS.HSE ---
Family Physician
-
Family Physician: Brock Pond
Chief Complaint
-
Abdominal pain
History of Present Illness
Patient is a pleasant 79 years old with history of diverticulitis status post elective laparoscopic sigmoidectomy for recurrent diverticulitis on 09/21,, discharged on September 25, came back to the ER today with lower abdominal pain, persistent,
associated with shortness of breath, and also low-grade fever, low appetite.
Denied chest pain but admits shortness of breath with exertion, also has intermittent coughing for last 1 month.
Denies nausea vomiting or change in bowel habits.
In the ER patient had CT scan of the chest/abdomen/pelvis which showed:
1. Severe subcutaneous edema and soft tissue swelling in the lower anterior abdominal and pelvic wall suggesting SEVERE CELLULITIS.
2. 2.8 cm DEVELOPING ABSCESS or seroma in the left lower quadrant anterior abdominal wall.
3. Recent sigmoidectomy.
4. Mild bilateral renal cortical volume loss.
5. Moderate extrahepatic biliary dilatation.
6. Previous cholecystectomy.
7. 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
8. Previous bilateral posterior instrumentation at L4/L5.
Patient was seen by surgery team in the ER, s/p bedside I&D, culture obtained, patient will be admitted under hospitalist service.
Medical History
Past Medical History
Past Medical History: Reports Cancer, GERD, Hypercholesterolemia, Psychiatric and Other
Additional Past Medical History:
Cancer (Skin CA), GERD, Hypercholesterolemia, Psychiatric (Anxiety, Depression, ), (Arthritis, Diverticulitis, Back pain, Tinging arms and legs. Migraines, Spinal cyst, AAA, UTI, Rosacea)
Past Surgical History: Reports Bowel Resection, Cholecystectomy, Orthopedic and Other
Additional Past Surgical History:
Bowel resection (Laparoscopic sigmoidectomy September 21, 2024), Cholecystectomy, Gynecological (Tubal, ), Orthopedic (Right knee replacement, Neck and facial surgery, Spinal fusion)
Social History
Tobacco: Non-smoker
Alcohol: None
Drug: None
Personal:
Living: With Family
Family History
Family History: Not pertinent
Allergies / Home Medications
Allergies reflects when Allergies were last updated in [employer].
Home Medications with original date entered in [employer]
Allergy/Medication List:
Allergies
Allergy/AdvReac Type Severity Reaction Status Date / Time
codeine Allergy Nausea / Verified 10/06/24 04:42
Vomiting
hydromorphone [From Dilaudid] Allergy hallucinati Verified 10/06/24 04:42
ons
Home Medications
rosuvastatin 10 mg tablet 10 mg PO QPM High cholesterol 03/24/15
omeprazole 40 mg capsule,delayed release 40 mg PO DAILY GERD 01/20/21
melatonin 5 mg tablet 5 mg PO HS 14 days #14 tabs 06/08/24
Probiotic 2 cap PO DAILY Gastrointestinal Issue 08/26/24
acetaminophen 500 mg tablet 500 mg PO Q6H PRN back pain 08/26/24
cranberry 2 tab PO DAILY Supplement 08/26/24
estradiol 0.01% (0.1 mg/gram) vaginal cream 1 appful vaginal . 2X A WEEK Hormonal Agent 08/26/24
lorazepam 0.5 mg tablet 0.5 mg PO HS Mental Health/Anxiety 08/26/24
perfluorohexyloctane (PF) 100 % eye drops (Miebo (PF)) 1 drp BOTH EYES QID dry eyes 08/26/24
ibuprofen 200 mg tablet 400 - 600 mg (2 - 3 x 200 mg) PO Q6HPRN PRN moderate pain #1 tab 09/25/24
tramadol 50 mg tablet 25 - 50 mg (0.5 - 1 x 50 mg) PO Q6HPRN PRN severe pain/breakthrough pain #8 tabs 09/25/24
Review of Systems
-
A 12 point ROS was completed and negative except as noted: Yes
Constitutional: Reports Fever, Weight Loss, Fatigue and Sleep Disturbance; Denies Weight Gain
EENT: Denies Tearing, Sore Throat, Mouth Pain, Mouth Swelling or Runny Nose
Respiratory: Reports Cough and Trouble Breathing; Denies Hemoptysis
Cardiac: Denies Chest Pain, Diaphoresis, Palpitations or Syncope
Abdomen/GI: Reports Abdominal Pain; Denies Nausea, Vomiting, Diarrhea, Constipated, Bloody Stools or Black Stools
: Denies Dysuria, Frequency, Flank Pain, Incontinence, Difficulty Voiding, Urgency, Bleeding or Dark Urine
Musculoskeletal: Denies Joint Pain, Joint Swelling, Muscle Pain, Muscle Stiffness or Edema
Skin: Denies Itching or Rash
Neurological: Denies Dizzy, Headache, Weakness or Numbness
Endocrine: Denies Polyuria, Polydipsia or Temp Intolerance
Hematologic/Lymphatic: Denies Bleeding, Swollen Glands or Bruising
Psych: Reports Calm; Denies Depression, Anxiety or Panic Disorder
Physical Exam
Vital Signs
Vital Signs
Temp Pulse Resp BP Pulse Ox
99.1 F 76 17 119/56 99
10/06/24 04:43 10/06/24 07:15 10/06/24 07:15 10/06/24 05:00 10/06/24 07:15
Physical Exam
General: Well Developed, Well Nourished, No Apparent Distress, Comfortable and Good Appetite; No Pain, Chills or Sweats
HEENT: NormoCephalic, Moist mucous membranes, Atraumatic, Good Dentition, PERRLA, Nose Appears Normal and Ears Appear Normal
Respiratory: Clear
Cardiac: S1/S2 and Regular Rhythm
Breast: Deferred by me
GI: Normal Bowel Sounds, Tender and Other (Redness around surgical site, dressing and packing in place.)
Genito-urinary: Deferred by me
Musculoskeletal: No Clubbing, No Cyanosis and No Edema
Skin: Warm; No Rash, Jaundice, Ulcers, Lesions or Decubitus Ulcers
Neuro: Awake, Alert, Oriented, AO x 3, No Motor Deficits, Nonfocal/grossly intact and Cranial Nerves Intact
Hematologic/Lymphatic: No Lymphadenopathy
Psych: Calm
Laboratory Results
-
10/06/24 05:10
10/06/24 05:10
Laboratory Results
Lactic Acid 1.0 mmol/L (0.7-2.0) 10/06/24 06:50
Total Bilirubin 0.7 mg/dl (0.2-1.3) 10/06/24 05:10
AST 15 U/L (14-36) 10/06/24 05:10
ALT 14 U/L (0-35) 10/06/24 05:10
Alkaline Phosphatase 66 U/L (38-126) 10/06/24 05:10
Lipase 58 U/L (23-300) 10/06/24 05:10
Data Reviewed
-
Diagnostic Radiology: Report Reviewed by me
CT Scan: Report Reviewed by me
Medical Tests (Nuc Med, Echo, EKG etc): Report Reviewed by me
Lab Data: Labs Reviewed by me
Old Records: Reviewed
Impression/Plan
-
IMPRESSION:
79 years old with history of diverticulitis status post elective laparoscopic sigmoidectomy on 09/21, discharged on September 25, came back to the ER with lower abdominal pain, low-grade fever, low appetite.
Denied chest pain but admits shortness of breath with exertion, In the ER patient had CT scan of the chest/abdomen/pelvis which showed:
1. Severe subcutaneous edema and soft tissue swelling in the lower anterior abdominal and pelvic wall suggesting SEVERE CELLULITIS.
2. 2.8 cm DEVELOPING ABSCESS or seroma in the left lower quadrant anterior abdominal wall.
Patient was seen by surgery team in the ER, s/p bedside I&D, culture obtained, patient will be admitted under hospitalist service.
Assessment/plan:
Abdominal wall abscess.
At incision site, status post laparoscopic sigmoidectomy on September 21.
CT scan shows severe cellulitis with 2.8 cm developing abscess.
Patient was already seen by surgery in the ER status post bedside incision and drainage.
Culture sent.
Patient was started empirically on vancomycin and Zosyn in the ER, will continue for now.
Pending drainage culture.
Pending blood cultures
Pain and nausea control
History of recurrent diverticulitis status post laparoscopic.
Low residual diet.
History of anxiety.
Continue Ativan.
Confirm PDMP
GERD.
Continue PPI
History of hyperlipidemia
Continue statin
CODE STATUS: Full code
DVT prophylaxis: Lovenox
Diet: low residual diet.
Total time spent on today's encounter was 75 minutes which included time spent in counseling the patient/family regarding diagnosis and treatment plan as listed above, goals of care, and symptom management. Case was discussed with nursing staff,
specialists, and care coordinators/case management. All labs and imaging personally reviewed by me. Remainder the time spent in detailed review of previous records, lab data, imaging, and other medical provider documentation.
[2024-10-06] MEDS: ZOSYN 100 IV (10:32)
[2024-10-06 10:43] VITALS: BP 124/70; BMI 24.5
--- NOTE | 2024-10-06 11:23 | PHA.VAN.IN ---
Assessment
- Assessment
Renal Function: Appears similar to baseline
Maximum Temperature: 99.1
Minimum Temperature: 97.7
Concomitant Antimicrobials: Piperacillin-tazobactam
AUC Dosing Plan
- Dosing Variables
Dosing Weight (kg): 66.8
Dosing CrCl (ml/min): 60
Vd coefficient (L/kg): 0.7
- Empiric Dosing
Initial / Loading Dose: Vanc 1500mg--given at 0744 10/06
Maintenance Regimen: Vanc 1250mg IV Q24H beginning 10/07
Estimated AUC (mcg*h/mL): 513.27
Estimated Peak (mcg*h/mL): 36.74
Estimated Trough (mcg/ml): 10.84
Estimated Half Life (H): 12.8
- Monitoring
No levels ordered at this time: Consider levels after 10/09 dose
Pharmacokinetics Vancomycin I
- -
Patient Age: 79
Patient Sex: Female
Vancomycin Day #: 1
Indication: Skin And Soft Tissue
Requesting Provider: Jalen
Height / Weight:
Height 5 ft 5 in
Actual Weight 66.791 kg
IBW in k
Adjusted BW in k.9
- Vital Signs / Lab Results
Temp Pulse Resp BP Pulse Ox
97.7 F 78 18 124/70 97
10/06/24 10:43 10/06/24 10:43 10/06/24 10:43 10/06/24 10:43 10/06/24 10:43
Lab Results - Hematology
10/06/24
05:10
WBC 8.4
Lab Results - Chemistry
10/06/24
05:10
BUN 11
Creatinine 0.7
Albumin 3.9
10/06/24
06:50
Lactic Acid 1.0
Microbiology Results
10/06/24 07:21 Gram Stain - Preliminary
Surgical Wound
[2024-10-06] MEDS: VISBIOME 2 CAP PO (11:24)
[2024-10-06] MEDS: CLEOCIN 300 MG PO (12:25)
[2024-10-06] MEDS: ANESTHETIC LOZENGE 1 LOZENGE PO ×2 (12:25→18:51)
[2024-10-06 15:48] VITALS: BP 107/67
[2024-10-06] MEDS: ZOSYN 50 IV ×2 (16:15→21:13)
[2024-10-06] MEDS: CRESTOR 10 MG PO (17:42)
[2024-10-06] MEDS: LOVENOX 40 MG SC (17:43)
[2024-10-06] MEDS: MELATONIN 5 MG PO (21:13)
[2024-10-06] MEDS: ATIVAN 0.5 MG PO (21:13)
[2024-10-06] MEDS: TYLENOL 650 MG PO (21:19)
[2024-10-06 23:37] VITALS: BP 110/62
--- NOTE | 2024-10-07 02:34 | W.PN.UPDATE ---
Update Note
Progress Note Update
Patient reports mild right groin pain and burning with urination and that she also noted smear vaginal blood x1. Incision sight noted, SS drainage. +BS, non distended, mild tender to lower abd, no guarding
hx of UTI will order UA
[2024-10-07] MEDS: ZOSYN 50 IV ×4 (05:00→21:18)
[2024-10-07] MEDS: VANCOCIN 275 MG IV (05:10)
[2024-10-07] MEDS: NSS 1000 IV (05:11)
[2024-10-07 05:21] LABS: Urine Albumin Negative (Neg - Trace); Urine Bilirubin Negative (Negative); Urine Character Slightly Cloudy (Clear); Urine Glucose Negative (Negative); Urine Ketone Negative (Negative); Urine Leukocyte 1+ (Negative); Urine Nitrite Negative (Negative); Urine Occult Blood 2+ (Negative); Urine Urobilinogen Negative (Neg - 1+)
[2024-10-07 06:12] LABS: Urine Color Straw
[2024-10-07 06:14] LABS: Urine Squamous Cell >30 /LPF (Few)
[2024-10-07 06:15] LABS: Urine Bacteria Few (Negative); Urine Red Blood Cell 26-30 /HPF (0-2); Urine White Cell 30-40 /HPF (0-5)
[2024-10-07 07:00] VITALS: BP 124/64
[2024-10-07 07:27] LABS: Hematocrit 31.4 % (37.0-47.0); Hemoglobin 10.2 g/dL (12.0-16.0); Mean Corp Hgb Conc. 32.5 g/dL (33.0-37.0); Mean Corpuscular Volume 92.4 fL (81.0-99.0); Mean Platelet Volume 9.4 fL (7.4-10.4); Platelet Count 373 10^3/uL (130-400); Red Cell Dist. Width 13.8 % (11.5-14.5)
[2024-10-07] MEDS: VISBIOME 2 CAP PO (08:04)
[2024-10-07] MEDS: PROTONIX 40 MG PO (08:04)
[2024-10-07 08:11] LABS: Blood Urea Nitrogen 7 mg/dl (7-17); Calcium 8.9 mg/dl (8.4-10.2); Carbon Dioxide 26 mmol/L (22-30); Chloride 109 mmol/L (98-107); Estimated Creatinine Clearance 60 ml/min; Glucose 109 mg/dl (70-99); Magnesium 2.1 mg/dl (1.6-2.3); Potassium 4.5 mmol/L (3.5-5.1); Sodium 140 mmol/L (135-145); eGFR > 60.00
--- NOTE | 2024-10-07 08:24 | PHA.VAN.FU ---
Vancomycin Assessment / Plan
- Assessment
Renal Function: Stable
WBC's are: Stable
In the past 24 hrs, patient has been: Afebrile
Concomitant Antimicrobials: piperacillin/tazobactam
- Dosing Plan
Continue: Vanc 1250mg Q24H
- Monitoring Plan
No level(s) ordered at this time: consider levels in next few days
- Follow Up
Pharmacy will continue to follow.
Vancomycin Follow UP
- -
Patient Age: 79
Patient Sex: Female
Vancomycin Day #: 2
Indication: Skin And Soft Tissue
Requesting Provider: Jalen
Pertinent Antimicrobial Allergies:
no pertinent drug allergies
Height / Weight:
Height 5 ft 5 in
Actual Weight 66.791 kg
IBW in k
Adjusted BW in k.9
- Vital Signs / Lab Results
Temp Pulse Resp BP Pulse Ox
97.5 F 66 18 124/64 98
10/07/24 07:00 10/07/24 07:00 10/07/24 07:00 10/07/24 07:00 10/07/24 07:00
Lab Results - Hematology
10/06/24 10/07/24
05:10 07:04
WBC 8.4 4.0 L
Lab Results - Chemistry
10/06/24 10/07/24
05:10 07:04
BUN 11 7
Creatinine 0.7 0.7
Estimated Creat Clear 60
Albumin 3.9
10/06/24
06:50
Lactic Acid 1.0
Lab Results - Urine
10/07/24
04:48
Urine Nitrite (Reflex) Negative
Leukocyte Esterase Rfl 1+ A
Ur Squamous Epith Cells >30
Microbiology Results
10/06/24 06:50 Blood Culture - Preliminary
Blood/Venous No Growth in 24 hours- Final report to follow
10/06/24 06:52 Blood Culture - Preliminary
Blood/Venous No Growth in 24 hours- Final report to follow
10/06/24 07:21 Gram Stain - Preliminary
Surgical Wound
--- NOTE | 2024-10-07 09:16 | W.PN.GS2 ---
Today's Communication / Plan
-
Dispo planning after [facility] set up
Assessment / Plan
-
This is a 79-year-old female with a history of recurrent diverticulitis status post laparoscopic sigmoidectomy on 09/21/2024 who had a uneventful hospital course and was discharged on 09/25/2024 who comes back to the hospital with leaking fluid from
her Pfannenstiel incision concerning for a small wound dehiscence. This was managed with bedside drainage. Cultures negative.
Will continue short course of antibiotics for 4 more days of oral antibiotics (Augmentin).
She will need local wound care: Okay to shower, remove packing and gauze prior. Pat dry and replace packing daily and cover with a dry gauze. Given its location this may be challenging for the patient to do herself and she states that her
may not be able to help her. Appreciate home [facility] set up.
She is otherwise tolerating diet and her pain is well-controlled, cleared from a surgery perspective for discharge.
[facility] instructions updated, patient to follow-up with Dr. Card in 1 week.
Time Spent
Total Time Spent with Patient (in minutes): 25
Subjective Data
-
Date of Service: October 07, 2024
Objective Data
-
Intake and Output
10/06/24 10/07/24 10/08/24
06:59 06:59 06:59
Intake Total 2124
Balance 2124
Intake:
Oral fluids 1530 / 1530
IV fluids (Total) 545 / 545
IV piggybacks 50 / 50
Other:
Number of approximated SMALL 1
amounts of urine
Number of approximated MODERATE 1
amounts of urine
Vital Signs
Temp Pulse Resp BP Pulse Ox
97.5 F 66 18 124/64 98
10/07/24 07:00 10/07/24 07:00 10/07/24 07:00 10/07/24 07:00 10/07/24 07:00
Lab Results
10/07/24 07:04
10/07/24 07:04
Calcium 8.9 mg/dl (8.4-10.2) 10/07/24 07:04
Magnesium 2.1 mg/dl (1.6-2.3) 10/07/24 07:04
Total Bilirubin 0.7 mg/dl (0.2-1.3) 10/06/24 05:10
AST 15 U/L (14-36) 10/06/24 05:10
ALT 14 U/L (0-35) 10/06/24 05:10
Alkaline Phosphatase 66 U/L (38-126) 10/06/24 05:10
Total Protein 6.5 g/dl (6.3-8.2) 10/06/24 05:10
Albumin 3.9 g/dl (3.5-5.0) 10/06/24 05:10
--- NOTE | 2024-10-07 12:14 | CM ---
Initial assessment completed. Patient is a 79 year old with history of diverticulitis status post elective laparoscopic sigmoidectomy for recurrent diverticulitis on 09/21, discharged on September 25, came back to the ER today with lower abdominal pain,
persistent, associated with shortness of breath, and also low-grade fever, low appetite.
Patient resides w/ spouse in [facility] 3 [place] to enter. Patient is independent, no DME. No SNF hx reported, [facility] in the past.
Address, point of contact and insurance verified
PCP: Brock Pond
Pharmacy: [facility]
Per chart, patient will need [facility] set up for wound care as patient shared it will be challenging to complete herself and unsure if spouse will be able to complete either. Discussed w/ patient and spouse, agreeable to [facility], referral placed. Patient and
spouse aware [facility] will not visit every day.
Per hospitalist, patient will d/c tomorrow. Awaiting wound culture.
Plan: Home w/ [facility].
[2024-10-07 15:00] VITALS: BP 128/59
--- NOTE | 2024-10-07 16:03 | DOWNTIME ---
There was a [employer] Client Account Support Manager Downtime on 10/07/2024 from 1230 to 10/07/2024 at 1550. Downtime documentation of patient's care, including medication administrations, has been reconciled in the electronic record per guidelines. Refer to the
patient's paper chart under the miscellaneous tab to see printed paper medication records and downtime forms.
--- NOTE | 2024-10-07 16:21 | W.PN.HOSP.TC ---
Today's Communication/Plan
-
Pending drainage culture, possible discharge in am
Assessment / Plan
Assessment / Plan
Impression:
79 years old with history of diverticulitis status post elective laparoscopic sigmoidectomy on 09/21, discharged on September 25, came back to the ER with lower abdominal pain, low-grade fever, low appetite.
Denied chest pain but admits shortness of breath with exertion, In the ER patient had CT scan of the chest/abdomen/pelvis which showed:
1. Severe subcutaneous edema and soft tissue swelling in the lower anterior abdominal and pelvic wall suggesting SEVERE CELLULITIS.
2. 2.8 cm DEVELOPING ABSCESS or seroma in the left lower quadrant anterior abdominal wall.
Patient was seen by surgery team in the ER, s/p bedside I&D, culture obtained.
Assessment/plan:
Abdominal wall abscess.
At incision site, status post laparoscopic sigmoidectomy on September 21.
CT scan shows severe cellulitis with 2.8 cm developing abscess.
Patient was already seen by surgery in the ER status post bedside incision and drainage.
Culture sent.
Patient was started empirically on vancomycin and Zosyn in the ER, will continue for now.
Pending drainage culture.
Pending blood cultures
Pain and nausea control
History of recurrent diverticulitis status post laparoscopic.
Low residual diet.
History of anxiety.
Continue Ativan.
Confirm PDMP
GERD.
Continue PPI
History of hyperlipidemia
Continue statin
CODE STATUS: Full code
DVT prophylaxis: Lovenox
Diet: low residual diet.
Family communication:
Disposition:
Total time spent on today's encounter was 65 minutes which included time spent in counseling the patient/family regarding diagnosis and treatment plan as listed above, goals of care, and symptom management. Case was discussed with nursing staff,
specialists, and care coordinators/case management. All labs and imaging personally reviewed by me. Remainder the time spent in detailed review of previous records, lab data, imaging, and other medical provider documentation.
Anticipated Discharge: Within 24 hours
Subjective/Interval History
-
Date of Service: October 07, 2024
Patient seen and examined at bedside, denies any chest pain or shortness of breath, no abdominal pain, no nausea, no vomiting, no diarrhea or constipation.
Still pending drainage culture.
Continue vancomycin for now.
Possible discharge tomorrow
Objective Data
-
Labs:
Laboratory Results
10/07/24
07:04
WBC 4.0 L
Hgb 10.2 L
Hct 31.4 L
Plt Count 373
Sodium 140
Potassium 4.5
Chloride 109 H
Carbon Dioxide 26
BUN 7
Creatinine 0.7
Glucose 109 H
Calcium 8.9
Vital Signs:
Vital Signs
Temp Pulse Resp BP Pulse Ox
97.6 F 89 18 128/59 98
10/07/24 15:00 10/07/24 15:00 10/07/24 15:00 10/07/24 15:00 10/07/24 15:00
I&O
10/06/24 10/07/24 10/08/24
06:59 06:59 06:59
Intake Total 2124
Balance 2124
Physical Exam
-
General: Well Developed, Well Nourished, No Apparent Distress and Comfortable
HEENT: Normocephalic, Atraumatic, Moist Mucous Membranes, No Ptosis, PERRLA and Nose Appears Normal
Respiratory: Clear to Auscultation and Non Labored Respirations
Cardiac: Regular Rhythm and S1/S2
Breast: Deferred by me
GI: Soft, Normal Bowel Sounds, Tender and Other (Abdominal wall redness and dressing)
Genito-urinary: No Costovertebral Tender
Musculoskeletal: No Clubbing, No Cyanosis and No Edema
Skin: Warm
Neuro: Awake, Alert, Oriented, AO x 3 and No Motor Deficits
Psych: Calm
Data Reviewed
-
Diagnostic Radiology: Image personally visualized and interpreted and Report Reviewed by me
CT Scan: Image personally visualized and interpreted and Report Reviewed by me
Ultrasound: Image personally visualized and interpreted and Report Reviewed by me
MRI: Image personally visualized and interpreted and Report Reviewed by me
Medical Tests (Nuc Med, Echo etc): Image personally visualized and interpreted and Report Reviewed by me
Labs: Labs Reviewed by me
Old Records: Reviewed
[2024-10-07] MEDS: CRESTOR 10 MG PO (17:05)
[2024-10-07] MEDS: LOVENOX 40 MG SC (17:05)
[2024-10-07] MEDS: ATIVAN 0.5 MG PO (21:18)
[2024-10-07] MEDS: MELATONIN 5 MG PO (21:18)
[2024-10-07] MEDS: TYLENOL 650 MG PO (21:22)
[2024-10-08 00:14] VITALS: BP 121/57
[2024-10-08] MEDS: ZOSYN 50 IV ×2 (05:00→09:48)
[2024-10-08] MEDS: VANCOCIN 275 MG IV (05:39)
[2024-10-08 07:00] VITALS: BP 123/58
[2024-10-08 07:46] LABS: Hematocrit 32.7 % (37.0-47.0); Hemoglobin 10.7 g/dL (12.0-16.0); Mean Corp Hgb Conc. 32.7 g/dL (33.0-37.0); Mean Corpuscular Hgb 30.4 pg (27.0-31.0); Mean Corpuscular Volume 92.9 fL (81.0-99.0); Mean Platelet Volume 9.5 fL (7.4-10.4); Platelet Count 382 10^3/uL (130-400); Red Blood Cell Count 3.52 10^6/uL (4.20-5.40); Red Cell Dist. Width 13.9 % (11.5-14.5); White Blood Cell Count 3.9 10^3/uL (4.8-10.8)
[2024-10-08] MEDS: VISBIOME 2 CAP PO (08:44)
[2024-10-08] MEDS: PROTONIX 40 MG PO (08:44)
[2024-10-08 08:57] LABS: Blood Urea Nitrogen 6 mg/dl (7-17); Calcium 9.2 mg/dl (8.4-10.2); Carbon Dioxide 27 mmol/L (22-30); Chloride 108 mmol/L (98-107); Estimated Creatinine Clearance 52 ml/min; Glucose 104 mg/dl (70-99); Potassium 4.5 mmol/L (3.5-5.1); Sodium 141 mmol/L (135-145); eGFR > 60.00
--- NOTE | 2024-10-08 09:51 | VNURNOTE ---
Home Health Liaison met with patient at bedside to discuss [facility] nurse/therapy, visits, schedule and homebound status. Patient is agreeable and understands that visits at home will be 3 x per week to assess and teach medical and wound care
management. Explained to pt that [facility] typically do not make daily visits. Patient stated her spouse might be willing to learn wound care. Patient is aware that [facility] will contact them for start of care in 1-2 days after discharge from . [facility]
Intake updated on pt DC plan and need for visit tomorrow for wound care.
[facility] referral accepted in [facility].
--- NOTE | 2024-10-08 10:31 | CM ---
Home today with [facility].
Plan; Home with spouse and [facility].
[2024-10-08 11:00] VITALS: BP 142/80
--- NOTE | 2024-10-08 11:16 | W.PN.HOSP.TC ---
Today's Communication/Plan
-
Discharge home today.
Assessment / Plan
Assessment / Plan
Impression:
79 years old with history of diverticulitis status post elective laparoscopic sigmoidectomy on 09/21, discharged on September 25, came back to the ER with lower abdominal pain, low-grade fever, low appetite.
Denied chest pain but admits shortness of breath with exertion, In the ER patient had CT scan of the chest/abdomen/pelvis which showed:
1. Severe subcutaneous edema and soft tissue swelling in the lower anterior abdominal and pelvic wall suggesting SEVERE CELLULITIS.
2. 2.8 cm DEVELOPING ABSCESS or seroma in the left lower quadrant anterior abdominal wall.
Patient was seen by surgery team in the ER, s/p bedside I&D, culture obtained.
Will be discharged home in Augmentin for additional 4 days.
Assessment/plan:
Abdominal wall abscess.
At incision site, status post laparoscopic sigmoidectomy on September 21.
CT scan shows severe cellulitis with 2.8 cm developing abscess.
Patient was already seen by surgery in the ER status post bedside incision and drainage.
Culture sent.
Patient was started empirically on vancomycin and Zosyn in the ER, will continue for now.
Pending drainage culture.
Pending blood cultures
Pain and nausea control
Discharge home on Augmentin.
History of recurrent diverticulitis status post laparoscopic.
Low residual diet.
History of anxiety.
Continue Ativan.
Confirm PDMP
GERD.
Continue PPI
History of hyperlipidemia
Continue statin
CODE STATUS: Full code
DVT prophylaxis: Lovenox
Diet: low residual diet.
Family communication:
Disposition:
Total time spent on today's encounter was 65 minutes which included time spent in counseling the patient/family regarding diagnosis and treatment plan as listed above, goals of care, and symptom management. Case was discussed with nursing staff,
specialists, and care coordinators/case management. All labs and imaging personally reviewed by me. Remainder the time spent in detailed review of previous records, lab data, imaging, and other medical provider documentation.
Anticipated Discharge: Today
Subjective/Interval History
-
Date of Service: October 08, 2024
Patient seen and examined at bedside, denies any chest pain or shortness of breath, no abdominal pain, no nausea, no vomiting, no diarrhea or constipation.
Objective Data
-
Labs:
Laboratory Results
10/08/24
07:12
WBC 3.9 L
Hgb 10.7 L
Hct 32.7 L
Plt Count 382
Sodium 141
Potassium 4.5
Chloride 108 H
Carbon Dioxide 27
BUN 6 L
Creatinine 0.8
Glucose 104 H
Calcium 9.2
Vital Signs:
Vital Signs
Temp Pulse Resp BP Pulse Ox
97.4 F 100 18 142/80 98
10/08/24 11:00 10/08/24 11:00 10/08/24 11:00 10/08/24 11:00 10/08/24 11:00
I&O
10/07/24 10/08/24 10/09/24
06:59 06:59 06:59
Intake Total 2124 1370 / 1370
Balance 2124 1370 / 1370
Physical Exam
-
General: Well Developed, Well Nourished, No Apparent Distress and Comfortable
HEENT: Normocephalic, Atraumatic, Moist Mucous Membranes, No Ptosis, PERRLA and Nose Appears Normal
Respiratory: Clear to Auscultation and Non Labored Respirations
Cardiac: Regular Rhythm and S1/S2
Breast: Deferred by me
GI: Soft, Normal Bowel Sounds, Tender and Other (Abdominal wall redness and dressing)
Genito-urinary: No Costovertebral Tender
Musculoskeletal: No Clubbing, No Cyanosis and No Edema
Skin: Warm
Neuro: Awake, Alert, Oriented, AO x 3 and No Motor Deficits
Psych: Calm
Data Reviewed
-
Diagnostic Radiology: Image personally visualized and interpreted and Report Reviewed by me
CT Scan: Image personally visualized and interpreted and Report Reviewed by me
Ultrasound: Image personally visualized and interpreted and Report Reviewed by me
MRI: Image personally visualized and interpreted and Report Reviewed by me
Medical Tests (Nuc Med, Echo etc): Image personally visualized and interpreted and Report Reviewed by me
Labs: Labs Reviewed by me
Old Records: Reviewed
--- NOTE | 2024-10-08 11:17 | W.DCSUMMARY ---
Discharge Summary
Discharge Data
Date of Admission: 10/06/24
Date of Discharge: 10/08/24
-
Pending Results: No
Hospital Course
Hospital course
79 years old with history of diverticulitis status post elective laparoscopic sigmoidectomy on 09/21, discharged on September 25, came back to the ER with lower abdominal pain, low-grade fever, low appetite.
Denied chest pain but admits shortness of breath with exertion, In the ER patient had CT scan of the chest/abdomen/pelvis which showed:
1. Severe subcutaneous edema and soft tissue swelling in the lower anterior abdominal and pelvic wall suggesting SEVERE CELLULITIS.
2. 2.8 cm DEVELOPING ABSCESS or seroma in the left lower quadrant anterior abdominal wall.
Patient was seen by surgery team in the ER, s/p bedside I&D, culture obtained.
Will be discharged home in Augmentin for additional 4 days.
During hospitalization patient was treated from the following
Abdominal wall abscess.
At incision site, status post laparoscopic sigmoidectomy on September 21.
CT scan shows severe cellulitis with 2.8 cm developing abscess.
Patient was already seen by surgery in the ER status post bedside incision and drainage.
Culture sent.
Patient was started empirically on vancomycin and Zosyn in the ER, will continue for now.
Pending drainage culture.
Pending blood cultures
Pain and nausea control
Discharge home on Augmentin.
History of recurrent diverticulitis status post laparoscopic.
Low residual diet.
History of anxiety.
Continue Ativan.
Confirm PDMP
GERD.
Continue PPI
History of hyperlipidemia
Continue statin
CODE STATUS: Full code
DVT prophylaxis: Lovenox
Diet: low residual diet.
Total time spent on today's encounter was 40 minutes which included time spent in counseling the patient/family regarding diagnosis and treatment plan as listed above, goals of care, and symptom management. Case was discussed with nursing staff,
specialists, and care coordinators/case management. All labs and imaging personally reviewed by me. Remainder the time spent in detailed review of previous records, lab data, imaging, and other medical provider documentation.
Anticipated Discharge: Today
Discharge Plan
-
Patient Disposition: Home with Home Care
Discharge Diagnosis/Procedures: Abdominal wall cellulitis/abscess.
Diet: Low Residue
Activity: As tolerated
Bathing Restrictions: OK to Shower
Other Services: VN, PT and OT
Wound Care: Pack the wound with Iodoform packing strips daily. Cover with dry gauze. Change outer dressing daily and as needed.
Referrals:
Brock Pond DO [Family Provider]
Yordy Card MD [Active] - in one week
Prescriptions:
New
amoxicillin-pot clavulanate 875-125 mg tablet
1 tab PO Q12 4 Days Qty: 8 0RF
polyethylene glycol 3350 17 gram Powder In Packet
17 g PO DAILYPRN PRN (Reason: constipation) Qty: 0 0RF
Continued
rosuvastatin 10 MG tablet
10 mg PO QPM
omeprazole 40 MG capsule,delayed release(DR/EC)
40 mg PO DAILY
melatonin 5 mg Tablet
5 mg PO HS 14 Days Qty: 14 0RF
acetaminophen 500 mg Tablet
500 mg PO BID
estradiol 0.01 % (0.1 mg/gram) Cream
1 appful VAGINAL .TWICE A WEEK
cranberry 500 mg Capsule
500 mg PO DAILY Qty: 0
Visbiome 112.5 billion cell Capsule
1 cap PO DAILY Qty: 0
Miebo (PF) 100 % Drops
1 drp BOTH EYES QID
lorazepam 0.5 mg Tablet
0.5 mg PO HS
tramadol 50 mg tablet
25 mg PO Q6HPRN PRN (Reason: severe pain/breakthrough pain)
Discharge Orders:
Discharge Patient (As Directed); Ordered 10/08/24
Ordered By: Mamie Rao
Discharge Date and Time
Discharge Date/Time: 10/08/24 11:12
Print Language: GEORGIAN
== END 2024-10-08 11:12 | disposition home health service (06) | DRG 920 ==
LOC: 4 WEST ACU 08:39
PROVIDERS: Nurse Practitioner Gerontology; ADMITTING PHYSICIAN General Practice; CONSULT PHYSICIAN Surgery; EMERGENCY PHYSICIAN Emergency Medicine; FAMILY PHYSICIAN Family Medicine
PROC: 0J9C0ZZ Drainage of Pelvic Region Subcutaneous Tissue and Fascia, Open Approach (ICD-10-PCS; 2024-10-06)
DX: T81.321A Disruption or dehiscence of closure of internal operation (surgical) wound of abdominal wall muscle or fascia, initial encounter (principal); L02.211 Cutaneous abscess of abdominal wall; L03.311 Cellulitis of abdominal wall; K21.9 Gastro-esophageal reflux disease without esophagitis; Y83.8 Other surgical procedures as the cause of abnormal reaction of the patient, or of later complication, without mention of misadventure at the time of the procedure
CPT/HCPCS: 71275; 74177; 80048; 80053; 81003; 81015; 83605; 83690; 83735; 85025; 85027; 87040; 87070; 87086; 87205; 96361; 96365; 96367; 96375; 99284; Q9967

== ENCOUNTER 2024-10-20 15:07 | Inpatient (IN) | payer MEDICARE, OTHER, SELFPAY ==
[2024-10-20] VITALS (14 sets, daily range): BP systolic 85–152; BP diastolic 56–89; BMI 24.2; BMI 23.8
--- NOTE | 2024-10-20 08:09 | ED.GENMED ---
History of Present Illness
General
Chief Complaint: Change in Mental Status
Source: patient and ambulance crew
Exam Limitations: none
Time Seen by Provider: 10/20/24 07:53
Nursing documentation reviewed up to this point in time: agreed with
History of Present Illness
History of Present Illness:
Patient is a 79-year-old female with past medical history of fibromyalgia chronic constipation cystectomy lumbar fusion cholecystectomy who presents to the ER for evaluation. Patient is status post sigmoidectomy 09/21 and left ureteral stent
complicated by infection of wound, cellulitis and developing abscess in the lower quadrant anterior abdominal wall. She had I&D by surgery and was discharged on Augmentin. At that time she was admitted from to October 08.
As per EMS patient has been confused throughout the night. Patient complains of chills and is aware she is confused . Currently she does feel little confused does complain of some abdominal pain but reports she has had this since her surgery. She
complains of mild burning with urination. Denies any cough, she does complain mild sore throat
Past History
Past History
ED Past Medical History: Cancer (Skin CA), GERD, Hypercholesterolemia, Psychiatric (Anxiety, Depression, ) and Other (Arthritis, Diverticulitis, Back pain, Tinging arms and legs. Migraines, Spinal cyst, AAA, UTI, Rosacea)
ED Past Surgical History: Bowel resection (Laparoscopic sigmoidectomy September 21, 2024), Cholecystectomy, Gynecological (Tubal, ), Orthopedic (Right knee replacement, Neck and facial surgery, Spinal fusion) and Other
Social History
Tobacco: Non-smoker
Alcohol: None
Drug: None
Personal:
Living: with family
Employment: Retired
Family History
Family History: Other (Noncontributory)
Review of Systems
Review of Systems
Allergies reviewed?: Yes
All Other Systems: ROS reviewed and negative except as documented in HPI and ROS
Constitutional: Reports no symptoms
Phy Exam
General Physical Exam
General Presentation: no apparent distress
General age: appears stated age
General Skin: warm and dry
General Habitus: elderly
General Mental: alert
General Hydration: appears well hydrated
Cardiovascular Exam
Cardiovascular Exam: regular rate/rhythm, no murmur and normal peripheral pulses
Pulmonary Exam
Pulmonary Exam: lungs clear and no respiratory distress
Gastrointestinal Exam
Gastrointestinal Exam: soft and other (Abdomen soft nontender incision sites look well without evidence of redness or drainage)
Neurological Exam
Neurological Exam: alert and oriented x3
Musculoskeletal Exam
Musculoskeletal Exam: full ROM
Skin Exam
Skin Exam: normal color and warm/dry
Psychiatric Exam
Psychiatric Exam: normal mood/affect
Sepsis
Sepsis Screening
Sepsis Assessment: Sepsis Ruled Out
Sepsis Screen
Sepsis Screen: Sepsis Ruled Out
Date: 10/20/24
Time: 14:47
Course
Orders/Labs/Results
Orders:
Orders
10/20/24 07:48
EKG [Electrocardiogram (*1)] Urgent
Reason for Study: Fatigue / Weakness
EKG- Treatment ONCE
10/20/24 08:10
Complete Blood Count/With Diff Urgent
Comprehensive Metabolic Panel Urgent
Lactate Level [Lactic Acid] Urgent
Urinalysis Urgent
Date Specimen was Collected: 10/20/24
Time Specimen was Collected: 08:08
10/20/24 08:12
Acetaminophen [Tylenol] 650 mg .ROUTE .STK-MED ONE
10/20/24 08:14
Acetaminophen [Tylenol] 650 mg PO NOW STA
10/20/24 08:39
COVID-19 Antigen Urgent
Source: Nasal Swab
Influenza A+B Rapid Molecular Urgent
BLU Source: Nasal Swab
Specimen Description:
10/20/24 09:13
Chest [CR Chest - 2 Views ] Urgent
Comment:
Reason For Exam: fever
10/20/24 10:06
CT Head W/o Iv Contrast Urgent
Comment:
Reason For Exam: change in ms
10/20/24 11:02
CT Abd/pel W Iv And Oral Contr Urgent
Comment:
Reason For Exam: fever hx of abdominal abscess/sigmoidectomy
Iohexol [Omnipaque] See Protocol PO NOW STA
10/20/24 11:14
Blood Culture Q30M
BLU Source: Blood/Venous
Specimen Description:
Blood Culture Q30M
BLU Source: Blood/Venous
Specimen Description:
Throat Culture [Throat Culture, Comprehensive] Urgent
BLU Source: Throat/Pharynx
Specimen Description:
Date Specimen was Collected: 10/20/24
Time Specimen was Collected: 11:00
10/20/24 14:12
Piperacillin/Tazo 3.375 Gram [Zosyn] 3.375 gram in 50 ml IV NOW
10/20/24 14:17
[facility] CONSULT Routine
Consulting Provider: Ned Concepcion
Was physician already notified: Yes
Procedure being ordered, including laterality if applicable: IR drainage of lower abdominal sub-Q abscess
Acknowledgement that appropriate orders are entered: Yes
Abnormal Lab Results
10/20/24
08:10
RBC 4.06 L 10^6/uL
(4.20-5.40)
Hct 36.5 L %
(37.0-47.0)
RDW 14.6 H %
(11.5-14.5)
Absolute Neuts (auto) 7.6 H 10^3/uL
(1.4-6.5)
Neutrophils % 76.3 H %
(42.2-75.2)
Lymphocytes % 16.6 L %
(20.5-51.1)
Chloride 108 H mmol/L
(98-107)
Glucose 120 H mg/dl
(70-99)
10/20/24 08:10
10/20/24 08:10
Vital Signs
Initial and Last Documented VS:
Initial Vital Signs
Temp Pulse Resp BP Pulse Ox
100.3 F 97 22 148/80 98
10/20/24 07:48 10/20/24 07:48 10/20/24 07:48 10/20/24 07:48 10/20/24 07:48
Last Documented Vital Signs
Temp Pulse Resp BP Pulse Ox
98.4 F 84 17 115/61 96
10/20/24 11:24 10/20/24 10:00 10/20/24 09:52 10/20/24 10:51 10/20/24 10:52
Heating And Ventilating Worker consulted with Physician
Heating And Ventilating Worker consulted with physician?: Yes
Name of Physician Consulted: [place]
MDM/Problems Addressed
MDM/Problems Addressed:
As documented patient is a 79-year-old female who is status post sigmoidectomy complicated by abscess and I&D 10/08 presented to the ER with low-grade temperature upon arrival. reports she was little confused and she was aware that she was
confused which is what prompted her to come to the ER. She however denies any abdominal pain and her abdominal incisional sites look good without infection abdomen is soft and nontender. She does have low-grade temperature she complains of a mild
sore throat. She denies any cough. Just only mild burning with urination. Patient has a white count of 10 unremarkable electrolytes, normal lactic acid of 1.1 negative urinalysis. Patient's CAT scan head is negative along with chest x-ray.
Case discussed with ED physician as of now there are no acute cause of the patient's low-grade fever like confusion with recent surgery and infection we will order CT of the abdomen.
Dr. Card evaluated patient at bedside and also reviewed patient's CAT scan concern for walled abscess. He will call interventional radiology ;patient will require admission, IV antibiotics ordered
Chronic conditions affecting care:
Recent sigmoidectomy with complicated abscess
*Radiology
Radiology exam reviewed: radiology read reviewed and other (ct reviewed by surgeon )
*Pulse Oximetry
Patient hypoxic: no
Comment: 96 %
*Critical Care Note
Total Time (30-74mins, 75-104mins- exclusive of procedures): Not Applicable
ED Attending Note
-
Portions of this chart may have been created with voice recognition software.� Occasional wrong word or��sound alike� substitutions may have occurred due to the inherent limitations of voice recognition software.
Discharge Plan
Departure
Patient Disposition: Admit
Date of Disposition: 10/20/24
Time of Disposition: 14:13
Admit to: Med/Surg
Admit to doctor: hospitalist
Presentation/result/management discussed w/ accepting MD/DO: Hospitalist
Patient with high blood pressure during this ER visit?: No
Condition: Fair
Covid-19: Not Applicable
Discharge Problem:
Intra-abdominal abscess
Prescriptions:
No Action
rosuvastatin 10 MG tablet
10 mg PO QPM
omeprazole 40 MG capsule,delayed release(DR/EC)
40 mg PO DAILY
melatonin 5 mg Tablet
5 mg PO HS 14 Days Qty: 14 0RF
acetaminophen 500 mg Tablet
500 mg PO BID
estradiol 0.01 % (0.1 mg/gram) Cream
1 appful VAGINAL .TWICE A WEEK
cranberry 500 mg Capsule
500 mg PO DAILY Qty: 0
Visbiome 112.5 billion cell Capsule
1 cap PO DAILY Qty: 0
Miebo (PF) 100 % Drops
1 drp BOTH EYES QID
lorazepam 0.5 mg Tablet
0.5 mg PO HS
tramadol 50 mg tablet
25 mg PO Q6HPRN PRN (Reason: severe pain/breakthrough pain)
amoxicillin-pot clavulanate 875-125 mg tablet
1 tab PO Q12 4 Days Qty: 8 0RF
polyethylene glycol 3350 17 gram Powder In Packet
17 g PO DAILYPRN PRN (Reason: constipation) Qty: 0 0RF
Referrals:
Brock Pond DO [Family Provider, Family Practice]
Interventions
Interventions:
*Risk Screen - Suicide Last Done: 10/20/24 08:51
*General Assessment Last Done: 10/20/24 08:51
*Neglect/Abuse Screening Last Done: 10/20/24 08:51
*ED- Fall Risk Assessment Last Done: 10/20/24 07:53
*ED COVID-19 Vaccine History Last Done: 10/20/24 07:53
ED- Neurological Assessment Last Done: 10/20/24 08:53
ED Swallowing Screen Last Done: 10/20/24 08:15
Discharge Date and Time
Print Language: URUGUAYAN
[2024-10-20] MEDS: TYLENOL 650 MG PO (08:14)
[2024-10-20 08:23] LABS: % Basophils 0.5 % (0-2); % Eosinophils 0.5 % (0-6); % Immature Granulocytes 0.4 % (0-0.5); % Lymphocytes 16.6 % (20.5-51.1); % Monocytes 5.7 % (1.7-9.3); % Neutrophils 76.3 % (42.2-75.2); Absolute Basophils 0.1 10^3/uL (0-0.2); Absolute Eosinophils 0.1 10^3/uL (0-0.7); Absolute Lymphocytes 1.7 10^3/uL (1.2-3.4); Absolute Monocytes 0.6 10^3/uL (0.1-0.6); Absolute Neutrophils 7.6 10^3/uL (1.4-6.5); Hematocrit 36.5 % (37.0-47.0); Hemoglobin 12.2 g/dL (12.0-16.0); Mean Corp Hgb Conc. 33.4 g/dL (33.0-37.0); Mean Corpuscular Volume 89.9 fL (81.0-99.0); Mean Platelet Volume 9.6 fL (7.4-10.4); Nucleated Red Blood Cells % 0 %; Platelet Count 256 10^3/uL (130-400); Red Blood Cell Count 4.06 10^6/uL (4.20-5.40); Red Cell Dist. Width 14.6 % (11.5-14.5)
[2024-10-20 08:29] LABS: Urine Albumin Negative (Neg - Trace); Urine Bilirubin Negative (Negative); Urine Character Clear (Clear); Urine Color Yellow; Urine Glucose Negative (Negative); Urine Ketone Negative (Negative); Urine Leukocyte Negative (Negative); Urine Nitrite Negative (Negative); Urine Occult Blood Negative (Negative); Urine Specific Gravity 1.015 (<1.030); Urine Urobilinogen Negative (Neg - 1+)
[2024-10-20 08:35] LABS: ALT (SGPT) 16 U/L (0-35); AST (SGOT) 21 U/L (14-36); Albumin 4.6 g/dl (3.5-5.0); Alkaline Phosphatase 67 U/L (38-126); Blood Urea Nitrogen 13 mg/dl (7-17); Calcium 9.8 mg/dl (8.4-10.2); Carbon Dioxide 22 mmol/L (22-30); Chloride 108 mmol/L (98-107); Estimated Creatinine Clearance 60 ml/min; Glucose 120 mg/dl (70-99); Potassium 4.2 mmol/L (3.5-5.1); Sodium 139 mmol/L (135-145); Total Bilirubin 0.7 mg/dl (0.2-1.3); Total Protein 7.1 g/dl (6.3-8.2); eGFR > 60.00
[2024-10-20 09:24] LABS: COVID-19 Antigen Negative (Negative)
[2024-10-20 10:17] LABS: Lactic Acid 1.1 mmol/L (0.7-2.0)
[2024-10-20] MEDS: OMNIPAQUE 50 ML PO (11:11)
--- NOTE | 2024-10-20 14:14 | CON.GS ---
Medical History
-
Chief Complaint: Altered mental status
History of Present Illness:
Patient is a 79 yo F with a PMH of recurrent diverticulitis s/p laparoscopic sigmoidectomy on 09/21/2024 who presents with fevers and an altered mental status. She was recently admitted to from 10/06 to 10/08 for management of a seroma and possible
abscess at this site. Localized drainage through her incision was performed and she was discharged on antibiotics. She was recently seen in follow-up with improved symptoms and little to no drainage at this site. Over the past 24 hours she
completed her antibiotics and subsequently developed altered mental status. She denies any significantly worsening pain. No nausea or vomiting. Continues to move her bowels without any issues.
Past Medical History
Past Medical History: Cancer (Non-melanotic skin cancer), GERD, HTN, Psychiatric (Depression/anxiety) and Other (Arthritis, migraines)
Past Surgical History: Bowel Resection (Sigmoidectomy), Cholecystectomy, Gynecological (Tubal ligation), Orthopedic (RIGHT knee replacement, spinal fusion) and Other (Skin cancer excision)
Social History
Tobacco: Non-Smoker
Alcohol: None
Drug: None
Personal:
Living: With Family
Family History
Family History: Reviewed & Not Pertinent
Allergies / Home Medications
Allergy/AdvReac Type Severity Reaction Status Date / Time
codeine Allergy Nausea / Verified 10/06/24 04:42
Vomiting
hydromorphone (From Dilaudid) Allergy hallucinati Verified 10/06/24 04:42
ons
�Medication �Instructions �Recorded �Confirmed �Type
rosuvastatin 10 mg tablet 10 mg PO QPM High cholesterol 03/24/15 10/06/24 History
omeprazole 40 mg capsule,delayed 40 mg PO DAILY GERD 01/20/21 10/06/24 History
release
melatonin 5 mg tablet 5 mg PO HS 14 days #14 tabs 06/08/24 10/06/24 Rx
Lactobac no.2-Bifidobac no.1-S. 1 cap PO DAILY Gastrointestinal 08/26/24 10/06/24 History
thermo 112.5 billion cell capsule Issue ##0
(Visbiome)
acetaminophen 500 mg tablet 500 mg PO BID Pain 08/26/24 10/06/24 History
cranberry 500 mg capsule 500 mg PO DAILY Supplement ##0 08/26/24 10/06/24 History
estradiol 0.01% (0.1 mg/gram) 1 appful vaginal .TWICE A WEEK 08/26/24 10/06/24 History
vaginal cream Hormonal Agent
lorazepam 0.5 mg tablet 0.5 mg PO HS Mental Health/Anxiety 08/26/24 10/06/24 History
perfluorohexyloctane (PF) 100 % 1 drp BOTH EYES QID dry eyes 08/26/24 10/06/24 History
eye drops (Miebo (PF))
tramadol 50 mg tablet 25 mg PO Q6HPRN PRN severe 10/06/24 10/06/24 History
pain/breakthrough pain
amoxicillin 875 mg-potassium 1 tab PO Q12 antibiotic 4 days #8 10/07/24 Rx
clavulanate 125 mg tablet tabs
polyethylene glycol 3350 17 gram 17 g PO DAILYPRN PRN constipation 10/08/24 Rx
oral powder packet #0 ea
Review of Systems
-
A 10 point review of systems was completed, and was negative except as per HPI.
Physical Exam
Vital Signs
Temp Pulse Resp BP Pulse Ox
98.4 F 84 17 115/61 96
10/20/24 11:24 10/20/24 10:00 10/20/24 09:52 10/20/24 10:51 10/20/24 10:52
10/19/24 10/20/24 10/21/24
06:59 06:59 06:59
Actual Weight 66 kg
Body Mass Index (BMI) 24.2
Lab Results
10/20/24 08:10
10/20/24 08:10
WBC 10.0 10^3/uL (4.8-10.8) 10/20/24 08:10
Hgb 12.2 g/dL (12.0-16.0) 10/20/24 08:10
Hct 36.5 % (37.0-47.0) L 10/20/24 08:10
Plt Count 256 10^3/uL (130-400) 10/20/24 08:10
Abs Immat Gran (auto) 0.0 10^3/uL (0-0.05) 10/20/24 08:10
Neutrophils % 76.3 % (42.2-75.2) H 10/20/24 08:10
Physical Exam
General: Well Developed, Well Nourished and No Apparent Distress
Respiratory: Non Labored Respirations
Cardiac: Regular Rhythm
GI: Soft, Non Tender, Non Distended, Incisions (well healed, small opening in pfannenstiel incision, no active drainage, stable induration, no erythema or ecchymosis) and Other (Non-peritoneal)
Skin: Warm and Dry
Neuro: Nonfocal/Grossly Intact
Data Reviewed
-
CT Scan: Image Personally Visualized and interpreted
Labs: Labs Reviewed by me
Old Records: Reviewed
Assessment / Plan
-
Patient is a 79 yo F s/p lap sigmoidectomy on 09/21/2024 p/w altered mental status related to a persistent soft tissue infection at site of Pfannenstiel incision
Inflammation and soft tissue edema noted on prior CT scan with drainage of likely seroma. Repeat CT scan demonstrates that this has developed into a more well defined abscess despite antibiotic treatment. Attempted bedside drainage though
previously developed small opening in the incision, however, unable to release any significant fluid. No evidence of an intra-abdominal component to her infection. Fascia appears intact. Anastomosis appears well-healed without any surrounding
inflammation or air.
Recommend and plan for IR drainage of soft tissue abscess. Plan for admission for IV antibiotics and coordination of drainage. Pain control with Tylenol and Ibuprofen as needed. Diet as tolerated. All questions answered.
-- IR drainage of soft tissue abscess
-- NPO for IR drainage, OK for LRD after procedure
-- Pain control: Tylenol and Ibuprofen
-- Abx: Vancomycin and Zosyn, tailor based on culture results
--- NOTE | 2024-10-20 14:15 | HPS.HSE ---
Family Physician
-
Family Physician: Brock Pond
Chief Complaint
-
Change in mental status
History of Present Illness
Patient is a 79-year-old female with past medical history significant for diverticulitis, GERD, hypercholesterolemia and anxiety/depression who presented to [facility] ED for evaluation of change in mental status. Patient status post sigmoidectomy and
left ureteral stent on 09/21/2024 complicated by infection of wound, cellulitis and developing abscess in the lower quadrant anterior abdominal wall. I&D by surgery and was discharged on Augmentin on 10/08/2024. Patient returns today with confusion
overnight and this morning with low-grade temp at home. Patient reports generally feeling better until last night and this morning. She states she could not remember her name this morning and her and her knew she needed to be seen so came to
ED for evaluation. Denies any cough, shortness of breath, chest pain, nausea, vomiting, constipation, diarrhea or urinary symptoms.
Medical History
Past Medical History
Past Medical History: Reports Other
Additional Past Medical History:
GERD
hypercholesterolemia
anxiety/depression
skin cancer
arthritis
diverticulitis
back pain
tinging arms and legs
migraines
spinal cyst
AAA
UTI
rosacea
Past Surgical History: Reports Bowel Resection, Cholecystectomy, Orthopedic and Other
Additional Past Surgical History:
Laparoscopic sigmoidectomy September 21, 2024
Cholecystectomy
Tubal ligation
Right knee replacement
Neck and facial surgery
Spinal fusion
Social History
Tobacco: Non-smoker
Alcohol: None
Drug: None
Personal:
Living: With Family
Family History
Family History: Not pertinent
Allergies / Home Medications
Allergies reflects when Allergies were last updated in [facility].
Home Medications with original date entered in [facility]
Allergy/Medication List:
Allergies
Allergy/AdvReac Type Severity Reaction Status Date / Time
codeine Allergy Nausea / Verified 10/06/24 04:42
Vomiting
hydromorphone (From Dilaudid) Allergy hallucinati Verified 10/06/24 04:42
ons
Home Medications
rosuvastatin 10 mg tablet 10 mg PO QPM High cholesterol 03/24/15
omeprazole 40 mg capsule,delayed release 40 mg PO DAILY GERD 01/20/21
melatonin 5 mg tablet 5 mg PO HS 14 days #14 tabs 06/08/24
Lactobac no.2-Bifidobac no.1-S. thermo 112.5 billion cell capsule (Visbiome) 1 cap PO DAILY Gastrointestinal Issue ##0 08/26/24
acetaminophen 500 mg tablet 500 mg PO BIDPRN PRN mild pain 08/26/24
cranberry 500 mg capsule 500 mg PO DAILY Supplement ##0 08/26/24
estradiol 0.01% (0.1 mg/gram) vaginal cream 1 appful vaginal .TWICE A WEEK Hormonal Agent 08/26/24
lorazepam 0.5 mg tablet 0.5 mg PO HS Mental Health/Anxiety 08/26/24
perfluorohexyloctane (PF) 100 % eye drops (Miebo (PF)) 1 drp BOTH EYES TID dry eyes 08/26/24
Review of Systems
-
History Source: Patient
Constitutional: Reports Fever
EENT: Reports No Symptoms
Respiratory: Reports No Symptoms
Cardiac: Reports No Symptoms
Abdomen/GI: Reports Pain (tenderness )
: Reports No Symptoms
Musculoskeletal: Reports No Symptoms
Skin: Reports No Symptoms
Neurological: Reports Other (new onset confusion )
Endocrine: Reports No Symptoms
Hematologic/Lymphatic: Reports No Symptoms
Psych: Reports No Symptoms
Physical Exam
Vital Signs
Vital Signs
Temp Pulse Resp BP Pulse Ox
98.4 F 84 17 115/61 96
10/20/24 11:24 10/20/24 10:00 10/20/24 09:52 10/20/24 10:51 10/20/24 10:52
Physical Exam
General: Well Developed, Well Nourished, No Apparent Distress and Conversant
HEENT: NormoCephalic, Moist mucous membranes, Atraumatic, [place] Conjunctivae, Nose Appears Normal and Ears Appear Normal
Respiratory: Clear
Cardiac: S1/S2 and Regular Rhythm
Breast: Deferred by me
GI: Soft, Non Distended, Normal Bowel Sounds and Tender
Rectal: Deferred by Provider
Genito-urinary: Deferred by me
Musculoskeletal: No Clubbing, No Cyanosis and No Edema
Skin: Warm and IV/Catheter Site
Neuro: Awake, Alert, AO x 3 and Nonfocal/grossly intact
Psych: Calm and Intact Judgment/Insight
Laboratory Results
-
10/20/24 08:10
10/20/24 08:10
Laboratory Results
Lactic Acid 1.1 mmol/L (0.7-2.0) 10/20/24 08:10
Total Bilirubin 0.7 mg/dl (0.2-1.3) 10/20/24 08:10
AST 21 U/L (14-36) 10/20/24 08:10
ALT 16 U/L (0-35) 10/20/24 08:10
Alkaline Phosphatase 67 U/L (38-126) 10/20/24 08:10
Data Reviewed
-
Diagnostic Radiology: Report Reviewed by me (CXR: No evidence of active cardiopulmonary disease.)
CT Scan: Report Reviewed by me (Head: No evidence of acute intracranial abnormality.)
Lab Data: Labs Reviewed by me
Impression/Plan
-
IMPRESSION/PLAN:
#intra-abdominal abscess
CXR: No evidence of active cardiopulmonary disease.
Head CT: No evidence of acute intracranial abnormality.
- Admit to med/surg
- Consult surgery
- Consult IR
- IV Zosyn
- supportive care
#diverticulitis
s/p laparoscopic sigmoidectomy on 09/21/2024
s/p abdominal wall abscess and cellulitis with I&D hospitalized 10/06/2024 - 10/08/2024
#GERD
- continue omeprazole
#hypercholesterolemia
- continue rosuvastatin
#anxiety/depression
- continue lorazepam and melatonin
Code status: full code
DVT prophylaxis: Lovenox sq
--- NOTE | 2024-10-20 14:30 | W.PN.UPDATE ---
Update Note
Progress Note Update
This note serves as an addendum to the H&P by jewelry store manager VIKTOR
Eveline Marx
79F HX s/p Laparoscopic sigmoidectomy, unilateral Lt ureteral stant ( 09/21/24) complicated by abscessseen at ER
- fever 10.3 at home with mild confusion which resolved at ER
- abdominal incisions looked well.
- she is afebrile at ER
- Prelim CT revied by Surgeon ? walled of abscess
Reviewed VS: afebrile acceptable VS
PE
Gen: Not toxic , interactive and cooporative
HEENT: anicter
Neck: supple
Lungs: CTA
Cor: RRR S1 S2
Abdomen: soft benighn abdomen
DEAD MAIL CHECKER: AAO3
MS: no edema
Psych: Nl mood and affect
Data
WCC 10 Hgb 12.2 Plt 256
Unremarkable CMP
10/20/24 CT AP prelim reviewed by Dr. Card , he believes that there is a small walled off abscess.
10/06/24 CT Pe/abd/pel W
1. Severe subcutaneous edema and soft tissue swelling in the lower anterior abdominal and pelvic wall suggesting SEVERE CELLULITIS.
2. 2.8 cm DEVELOPING ABSCESS or seroma in the left lower quadrant anterior abdominal wall.
3. Recent sigmoidectomy.
4. Mild bilateral renal cortical volume loss.
5. Moderate extrahepatic biliary dilatation.
6. Previous cholecystectomy.
7. 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
8. Previous bilateral posterior instrumentation at L4/L5.
HCT: No evidence of acute intracranial abnormality.
CXR: No evidence of active cardiopulmonary disease.
Last hospitalist admission:
Date of Admission: 10/06/24 - Date of Discharge: 10/08/24
ASSESSMENT & PLAN
Small walled off intraabdominal abscess per surgeon
associated Fever and AMS CANCER GENETICS ASSISTANT suspect TME which resolved at ER
- BCx sent
- Empiric IV Zosyn
- IVF
- Tyelnol PRN
HLD on Rosuvastatin
DVT Px: SQH
Code: Full code
IP MS
[2024-10-20] MEDS: ZOSYN 50 IV ×2 (15:16→21:40)
--- NOTE | 2024-10-20 15:35 | CM ---
CM reviewed chart and met with pt bedside in ED. This is pt's third recent admission, was receiving services from [facility] [employer].
Lives with her in Multistory home, [address]. Ambulates independently but has walker and can available in home.
Independent with ADLs and personal care [employer].
CM will continue to follow for all discharge planning needs
PCP: [facility] [place]
Plan: Anticipate home with [facility] pending ongoing medical evaluation
--- NOTE | 2024-10-20 15:37 | VNURNOTE ---
Chart reviewed. Patient is current with [facility] nursing. Will continue to follow hospital course and DC plans.
--- NOTE | 2024-10-20 15:40 | EDRN ---
Gave report to IR RN at this time
--- NOTE | 2024-10-20 17:41 | PTCARENOTE ---
Received patient from IR via stretcher around 171 in stable condition. Right LQ abdominal drain attached to bulb suction with serosanguineous drainage. Dressing intact. Patient oriented to room. Call stock in reach.
[2024-10-20] MEDS: CRESTOR 10 MG PO (19:50)
[2024-10-20] MEDS: ATIVAN 0.5 MG PO (21:39)
[2024-10-20] MEDS: MELATONIN 5 MG PO (21:39)
[2024-10-21 03:00] VITALS: BP 102/61
[2024-10-21] MEDS: ZOSYN 50 IV ×4 (04:25→21:05)
[2024-10-21 07:00] VITALS: BP 94/52
[2024-10-21 07:21] LABS: Hematocrit 34.4 % (37.0-47.0); Hemoglobin 11.4 g/dL (12.0-16.0); Mean Corp Hgb Conc. 33.1 g/dL (33.0-37.0); Mean Corpuscular Hgb 30.2 pg (27.0-31.0); Mean Corpuscular Volume 91.2 fL (81.0-99.0); Mean Platelet Volume 9.9 fL (7.4-10.4); Platelet Count 214 10^3/uL (130-400); Red Blood Cell Count 3.77 10^6/uL (4.20-5.40); Red Cell Dist. Width 14.7 % (11.5-14.5); White Blood Cell Count 5.1 10^3/uL (4.8-10.8)
--- NOTE | 2024-10-21 07:23 | W.PN.HOSP.TC ---
Today's Communication/Plan
-
Continue antibiotic.
Monitor drain
Assessment / Plan
Assessment / Plan
Impression:
patient is a 79-year-old female with past medical history significant for diverticulitis, GERD, hypercholesterolemia and anxiety/depression who presented to [facility] ED for evaluation of change in mental status. Patient status post sigmoidectomy and
left ureteral stent on 09/21/2024 complicated by infection of wound, cellulitis and developing abscess in the lower quadrant anterior abdominal wall. I&D by surgery and was discharged on Augmentin on 10/08/2024. Patient returns today with confusion
overnight and this morning with low-grade temp at home.
CT abdomen and pelvis shows:
Focal collection within the central and left anterior pelvic wall, slightly larger and better defined than on examination of October 06, 2024. This collection is suspicious for an abscess.
Status post cholecystectomy with enlargement of the intrahepatic bile ducts and extrahepatic bile ducts, stable, and likely physiologic after cholecystectomy.
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
No evidence for free intraperitoneal air. No evidence for abscess within the abdomen or pelvis. No evidence for bowel obstruction.
Surgery and IR consulted.
Status post ultrasound-guided abscess drained by IR
Assessment/plan:
Abdominal wall abscess s/p IR Ultrasound-guided drainage .
Patient presented with change mental status and fever.
CT abdomen and pelvis shows:
Focal collection within the central and left anterior pelvic wall, slightly larger and better defined than on examination of October 06, 2024. This collection is suspicious for an abscess.
Status post cholecystectomy with enlargement of the intrahepatic bile ducts and extrahepatic bile ducts, stable, and likely physiologic after cholecystectomy.
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
No evidence for free intraperitoneal air. No evidence for abscess within the abdomen or pelvis. No evidence for bowel obstruction.
Surgery and IR consulted.
Status post ultrasound-guided abscess drained by IR
Pending drainage culture.
Pending blood cultures
Pain and nausea control
History of recurrent diverticulitis status post laparoscopic.
s/p laparoscopic sigmoidectomy on 09/21/2024.
History of anxiety.
Continue Ativan.
Confirm PDMP
GERD.
Continue PPI
History of hyperlipidemia
Continue statin
CODE STATUS: Full code
DVT prophylaxis: Lovenox
Diet: cardiac diet
Disposition: Monitor drain
Total time spent on today's encounter was 65 minutes which included time spent in counseling the patient/family regarding diagnosis and treatment plan as listed above, goals of care, and symptom management. Case was discussed with nursing staff,
specialists, and care coordinators/case management. All labs and imaging personally reviewed by me. Remainder the time spent in detailed review of previous records, lab data, imaging, and other medical provider documentation.
Anticipated Discharge: 24 - 48 hours
Subjective/Interval History
-
Date of Service: October 21, 2024
Patient seen and examined at bedside, denies any chest pain or shortness of breath, improved abdominal pain, no nausea, no vomiting, no diarrhea or constipation.
Objective Data
-
Labs:
Laboratory Results
10/21/24
06:06
WBC 5.1
Hgb 11.4 L
Hct 34.4 L
Plt Count 214
Sodium Pending
Potassium Pending
Chloride Pending
Carbon Dioxide Pending
BUN Pending
Creatinine Pending
Glucose Pending
Calcium Pending
Vital Signs:
Vital Signs
Temp Pulse Resp BP Pulse Ox
98.1 F 72 16 102/61 96
10/21/24 03:00 10/21/24 03:00 10/21/24 03:00 10/21/24 03:00 10/21/24 03:00
I&O
10/20/24 10/21/24 10/22/24
06:59 06:59 06:59
Intake Total 230 / 230
Output Total
Balance 220 / 220
Physical Exam
-
General: Well Developed, Well Nourished, No Apparent Distress and Comfortable
HEENT: Normocephalic, Atraumatic, Moist Mucous Membranes, No Ptosis, PERRLA and Nose Appears Normal
Respiratory: Clear to Auscultation and Non Labored Respirations
Cardiac: Regular Rhythm and S1/S2
Breast: Deferred by me
GI: Soft, Nontender, Nondistended, Normal Bowel Sounds and Other (Drain in place)
Genito-urinary: No Costovertebral Tender
Musculoskeletal: No Clubbing, No Cyanosis and No Edema
Skin: Warm
Neuro: Awake, Alert, Oriented, AO x 3 and No Motor Deficits
Psych: Calm
Data Reviewed
-
Diagnostic Radiology: Image personally visualized and interpreted and Report Reviewed by me
CT Scan: Image personally visualized and interpreted and Report Reviewed by me
Ultrasound: Image personally visualized and interpreted and Report Reviewed by me
MRI: Image personally visualized and interpreted and Report Reviewed by me
Medical Tests (Nuc Med, Echo etc): Image personally visualized and interpreted and Report Reviewed by me
Labs: Labs Reviewed by me
Old Records: Reviewed
[2024-10-21] MEDS: VISBIOME 1 CAP PO (07:47)
[2024-10-21] MEDS: PROTONIX 40 MG PO (07:47)
[2024-10-21 07:52] LABS: Blood Urea Nitrogen 12 mg/dl (7-17); Calcium 9.4 mg/dl (8.4-10.2); Carbon Dioxide 24 mmol/L (22-30); Chloride 106 mmol/L (98-107); Estimated Creatinine Clearance 46 ml/min; Glucose 104 mg/dl (70-99); Potassium 4.4 mmol/L (3.5-5.1); Sodium 137 mmol/L (135-145); eGFR > 60.00
[2024-10-21] MEDS: TYLENOL 650 MG PO ×2 (07:52→15:57)
--- NOTE | 2024-10-21 09:28 | W.PN.GS2 ---
Today's Communication / Plan
-
-- Abx: Zosyn, f/u on cultures
-- Continue with IR drain, flush daily
-- Tentative plan for drain study in 1 week as outpatient
Assessment / Plan
-
Patient is a 79 yo F s/p laparoscopic sigmoidectomy for recurrent diverticulitis p/w persistent soft tissue infection s/p IR drainage on 10/20
AVSS
Labs unremarkable
Micro with WBC, no organisms
Continue with IR drainage and f/u on cultures. Likely discharge on PO antibiotics fo 7 days with repeat drain study as an outpatient.
-- Regular diet
-- Pain control: Tylenol
-- Abx: Zosyn, f/u on cultures
-- Continue with IR drain, flush daily
-- Tentative plan for drain study in 1 week as outpatient
Subjective Data
-
Date of Service: October 21, 2024
No complaints. Pain well-controlled. No fevers.
Objective Data
-
Intake and Output
10/20/24 10/21/24 10/22/24
06:59 06:59 06:59
Intake Total 230 / 230
Output Total
Balance 220 / 220
Intake:
Oral fluids 120 / 120
IV piggybacks 100 / 100
Amount instilled into Drain (
Total)
Lower Abdomen Dmitry-Loredo A
Placed in IR
Output:
Drain Output (Total)
Lower Abdomen Dmitry-Loredo A
Placed in IR
Other:
Number of approximated MODERATE 2
amounts of urine
Vital Signs
Temp Pulse Resp BP Pulse Ox
98.0 F 65 16 94/52 97
10/21/24 07:00 10/21/24 07:00 10/21/24 07:00 10/21/24 07:00 10/21/24 07:00
Lab Results
10/21/24 06:06
10/21/24 06:06
Calcium 9.4 mg/dl (8.4-10.2) 10/21/24 06:06
Total Bilirubin 0.7 mg/dl (0.2-1.3) 10/20/24 08:10
AST 21 U/L (14-36) 10/20/24 08:10
ALT 16 U/L (0-35) 10/20/24 08:10
Alkaline Phosphatase 67 U/L (38-126) 10/20/24 08:10
Total Protein 7.1 g/dl (6.3-8.2) 10/20/24 08:10
Albumin 4.6 g/dl (3.5-5.0) 10/20/24 08:10
Physical Exam
-
Gen: NAD
Abd: soft, NT, ND, stable mild induration just above Pfannenstiel incision, incisions c/d/i - no erythema or ecchymosis, small 2-3 mm skin opening in Pfannenstiel incision from prior drainage, IR drain with murky serous fluid, no purulence,
non-bilious or feculent
Patient has a garcia catheter: No
Patient has a central line: No
[2024-10-21] MEDS: FLUSH (NSS) 1 FLUSH IV (10:16)
[2024-10-21 11:31] VITALS: BP 101/50
[2024-10-21 15:05] VITALS: BP 137/53
--- NOTE | 2024-10-21 15:40 | VNURNOTE ---
Chart reviewed. Met with patient and spouse at bedside. Patient is current with [facility] and confirms she would like to resume services. Per chart, will continue with daily NSS flushes to JF drain upon DC. This author called patient's preferred
pharmacy[facility]. They do not carry flushes. [facility] pharmacy carries. Provided pt above info. She is agreeable to fill Rx for flushes at [facility]. Hospitalist updated. Resumption referral accepted in
[facility].
[2024-10-21] MEDS: CRESTOR 10 MG PO (17:00)
[2024-10-21] MEDS: LOVENOX 40 MG SC (17:00)
[2024-10-21] MEDS: ATIVAN 0.5 MG PO (21:05)
[2024-10-21] MEDS: MELATONIN 5 MG PO (21:05)
[2024-10-21 23:03] VITALS: BP 101/46
[2024-10-22] MEDS: ZOSYN 50 IV ×2 (04:08→09:22)
[2024-10-22 06:35] LABS: Hematocrit 32.5 % (37.0-47.0); Hemoglobin 11.1 g/dL (12.0-16.0); Mean Corp Hgb Conc. 34.2 g/dL (33.0-37.0); Mean Corpuscular Hgb 30.7 pg (27.0-31.0); Mean Corpuscular Volume 89.8 fL (81.0-99.0); Mean Platelet Volume 9.8 fL (7.4-10.4); Platelet Count 189 10^3/uL (130-400); Red Blood Cell Count 3.62 10^6/uL (4.20-5.40); Red Cell Dist. Width 14.7 % (11.5-14.5); White Blood Cell Count 4.3 10^3/uL (4.8-10.8)
[2024-10-22 06:57] LABS: Blood Urea Nitrogen 11 mg/dl (7-17); Calcium 9.3 mg/dl (8.4-10.2); Carbon Dioxide 26 mmol/L (22-30); Chloride 106 mmol/L (98-107); Estimated Creatinine Clearance 52 ml/min; Glucose 101 mg/dl (70-99); Potassium 4.4 mmol/L (3.5-5.1); Sodium 137 mmol/L (135-145); eGFR > 60.00
[2024-10-22 07:40] VITALS: BP 119/59
[2024-10-22] MEDS: PROTONIX 40 MG PO (08:12)
[2024-10-22] MEDS: VISBIOME 1 CAP PO (08:12)
[2024-10-22] MEDS: TYLENOL 650 MG PO ×2 (08:13→14:57)
--- NOTE | 2024-10-22 08:27 | W.PN.GS2 ---
Today's Communication / Plan
-
-- Abx: Zosyn, f/u on cultures, would consult ID for abx choice and duration
-- Continue with IR drain, flush daily
-- Tentative plan for drain study in 1 week as outpatient
-- OK for DC from surgical perspective
-- Will coordinate drain study and follow-up
Assessment / Plan
-
Patient is a 79 yo F s/p laparoscopic sigmoidectomy for recurrent diverticulitis p/w persistent soft tissue infection s/p IR drainage on 10/20
AVSS
Labs notable for leukopenia likely related to abx
Micro with WBC, no organisms, NGTD
Continue with IR drainage and f/u on cultures. Discharge on PO antibiotics, would consider ID consult given persistent issues and lack of grown for duration recs.
-- Regular diet
-- Pain control: Tylenol
-- Abx: Zosyn, f/u on cultures
-- Continue with IR drain, flush daily
-- Tentative plan for drain study in 1 week as outpatient
-- OK for DC from surgical perspective
-- Will coordinate drain study and follow-up
Subjective Data
-
Date of Service: October 22, 2024
No complaints. Mental status feels improved. Denies any pain. Tolerating and moving her bowels without any issues. Afebrile.
Objective Data
-
Intake and Output
10/21/24 10/22/24 10/23/24
06:59 06:59 06:59
Intake Total 230 / 230 2029
Output Total
Balance 220 / 220 2009
Intake:
Oral fluids 120 / 120 1919 / 1919
IV piggybacks 100 / 100 100 / 100
Amount instilled into Drain (
Total)
Lower Abdomen Dmitry-Loredo A
Placed in IR
Output:
Drain Output (Total)
Lower Abdomen D[facility]ry-[facility]
Placed in IR
Other:
Number of approximated SMALL 1
amounts of urine
Number of approximated MODERATE 2 2
amounts of urine
Vital Signs
Temp Pulse Resp BP Pulse Ox
98.0 F 61 17 101/46 98
10/21/24 23:03 10/21/24 23:03 10/21/24 23:03 10/21/24 23:03 10/21/24 23:03
Lab Results
10/22/24 05:13
10/22/24 05:13
Calcium 9.3 mg/dl (8.4-10.2) 10/22/24 05:13
Total Bilirubin 0.7 mg/dl (0.2-1.3) 10/20/24 08:10
AST 21 U/L (14-36) 10/20/24 08:10
ALT 16 U/L (0-35) 10/20/24 08:10
Alkaline Phosphatase 67 U/L (38-126) 10/20/24 08:10
Total Protein 7.1 g/dl (6.3-8.2) 10/20/24 08:10
Albumin 4.6 g/dl (3.5-5.0) 10/20/24 08:10
Physical Exam
-
Gen: NAD
Abd: soft, NT, ND, stable mild induration just above Pfannenstiel incision, incisions c/d/i - no erythema or ecchymosis, small 2-3 mm skin opening in Pfannenstiel incision from prior drainage, IR drain with serous fluid, no purulence, non-bilious or
feculent
Patient has a garcia catheter: No
Patient has a central line: No
--- NOTE | 2024-10-22 11:10 | W.PN.HOSP.TC ---
Today's Communication/Plan
-
Dc today after seen by infectious disease.
Assessment / Plan
Assessment / Plan
Impression:
patient is a 79-year-old female with past medical history significant for diverticulitis, GERD, hypercholesterolemia and anxiety/depression who presented to [facility] ED for evaluation of change in mental status. Patient status post sigmoidectomy and
left ureteral stent on 09/21/2024 complicated by infection of wound, cellulitis and developing abscess in the lower quadrant anterior abdominal wall. I&D by surgery and was discharged on Augmentin on 10/08/2024. Patient returns today with confusion
overnight and this morning with low-grade temp at home.
CT abdomen and pelvis shows:
Focal collection within the central and left anterior pelvic wall, slightly larger and better defined than on examination of October 06, 2024. This collection is suspicious for an abscess.
Status post cholecystectomy with enlargement of the intrahepatic bile ducts and extrahepatic bile ducts, stable, and likely physiologic after cholecystectomy.
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
No evidence for free intraperitoneal air. No evidence for abscess within the abdomen or pelvis. No evidence for bowel obstruction.
Surgery and IR consulted.
Status post ultrasound-guided abscess drained by IR
Cleared for discharge as per surgery, pending infectious disease recommendation regarding antibiotic on discharge and duration.
Assessment/plan:
Abdominal wall abscess s/p IR Ultrasound-guided drainage .
Patient presented with change mental status and fever.
CT abdomen and pelvis shows:
Focal collection within the central and left anterior pelvic wall, slightly larger and better defined than on examination of October 06, 2024. This collection is suspicious for an abscess.
Status post cholecystectomy with enlargement of the intrahepatic bile ducts and extrahepatic bile ducts, stable, and likely physiologic after cholecystectomy.
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
No evidence for free intraperitoneal air. No evidence for abscess within the abdomen or pelvis. No evidence for bowel obstruction.
Surgery and IR consulted.
Status post ultrasound-guided abscess drained by IR
Pending drainage culture.
Pending blood cultures
Pain and nausea control
10/22
Cleared for discharge as per surgery, pending infectious disease recommendation regarding antibiotic on discharge and duration.
History of recurrent diverticulitis status post laparoscopic.
s/p laparoscopic sigmoidectomy on 09/21/2024.
History of anxiety.
Continue Ativan.
Confirm PDMP
GERD.
Continue PPI
History of hyperlipidemia
Continue statin
CODE STATUS: Full code
DVT prophylaxis: Lovenox
Diet: cardiac diet
Disposition: Dc today after seen by infectious disease.
Total time spent on today's encounter was 65 minutes which included time spent in counseling the patient/family regarding diagnosis and treatment plan as listed above, goals of care, and symptom management. Case was discussed with nursing staff,
specialists, and care coordinators/case management. All labs and imaging personally reviewed by me. Remainder the time spent in detailed review of previous records, lab data, imaging, and other medical provider documentation.
Anticipated Discharge: Today
Subjective/Interval History
-
Date of Service: October 22, 2024
Patient seen and examined at bedside, denies any chest pain or shortness of breath, no abdominal pain, no nausea, no vomiting, no diarrhea or constipation.
Objective Data
-
Labs:
Laboratory Results
10/22/24
05:13
WBC 4.3 L
Hgb 11.1 L
Hct 32.5 L
Plt Count 189
Sodium 137
Potassium 4.4
Chloride 106
Carbon Dioxide 26
BUN 11
Creatinine 0.8
Glucose 101 H
Calcium 9.3
Vital Signs:
Vital Signs
Temp Pulse Resp BP Pulse Ox
98.0 F 61 17 101/46 98
10/21/24 23:03 10/21/24 23:03 10/21/24 23:03 10/21/24 23:03 10/21/24 23:03
I&O
10/21/24 10/22/24 10/23/24
06:59 06:59 06:59
Intake Total 230 / 230 2029
Output Total
Balance 220 / 220 2009
Physical Exam
-
General: Well Developed, Well Nourished, No Apparent Distress and Comfortable
HEENT: Normocephalic, Atraumatic, Moist Mucous Membranes, No Ptosis, PERRLA and Nose Appears Normal
Respiratory: Clear to Auscultation and Non Labored Respirations
Cardiac: Regular Rhythm and S1/S2
Breast: Deferred by me
GI: Soft, Nontender, Nondistended, Normal Bowel Sounds and Other (Drain in place)
Genito-urinary: No Costovertebral Tender
Musculoskeletal: No Clubbing, No Cyanosis and No Edema
Skin: Warm
Neuro: Awake, Alert, Oriented, AO x 3 and No Motor Deficits
Psych: Calm
Data Reviewed
-
Diagnostic Radiology: Image personally visualized and interpreted and Report Reviewed by me
CT Scan: Image personally visualized and interpreted and Report Reviewed by me
Ultrasound: Image personally visualized and interpreted and Report Reviewed by me
MRI: Image personally visualized and interpreted and Report Reviewed by me
Medical Tests (Nuc Med, Echo etc): Image personally visualized and interpreted and Report Reviewed by me
Labs: Labs Reviewed by me
Old Records: Reviewed
--- NOTE | 2024-10-22 11:33 | CON.ID ---
Consultation
-
Date/Time Consultation Requested: October 22, 2024 0905
Date/Time Consultation Performed: October 22, 2024 1135
Requesting Provider: Dr. Mamie Rao
Performing Provider: Dr. Mary Telles
Reason for Consultation: Abdominal wall abscess
Chief Complaint / Past History
Chief Complaint
Change in mental status
History of Present Illness
History obtained from the patient, from her at bedside and from review of medical records. 79-year-old female with history of diverticulitis and recently underwent laparoscopic sigmoidectomy on September 21, 2024. She was then hospitalized from
October 06 to October 08 due to left lower quadrant abdominal pain with erythema and drainage from the laparoscopic site. CAT scan showed severe soft tissue swelling with 2.8 cm developing abscess or seroma in the left lower quadrant anterior abdominal
wall. In ED, the wound site was drained and packed. Culture was negative. She was on vancomycin and Zosyn in the hospital then transition to outpatient Augmentin. At home the wound eventually closed. She completed the Augmentin on October 18.
However she developed acute change in mental status and low-grade fever which brought her back to the hospital on October 20. CAT scan again showed the focal collection within the central left anterior pelvic wall slightly larger and better defined.
IR aspirated 7 cc of cloudy yellow fluid and placed the drain. Culture again is negative. She is currently on Zosyn and plan to be discharged. Patient reports overall abdomen is better, however there is still area of induration over the previous
wound.
Past History
Additional Past Medical History:
HLD
Anxiety/depression
GERD
Migraines
AAA
Diverticulitis status post sigmoidectomy September 21, 2024
Cholecystectomy
Right knee replacement
Spinal fusion
Neck and facial surgery
Allergy History:
codeine Allergy (Verified 10/06/24 04:42)
Nausea / Vomiting
hydromorphone (From Dilaudid) Allergy (Verified 10/06/24 04:42)
hallucinations
Medications Reviewed: Yes
Current Antibiotics:
Zosyn
Social History
Tobacco: Non-Smoker
Alcohol: None
Drug: None
Personal:
Family History
Family History: Not Pertinent
Review of Systems
Review of Systems
General: Negative Chills
HEENT: Negative Sinus Problems or Headache
Cardiovascular: Negative Chest Pain
Respiratory: Negative Dyspnea
Gasteroenterology: Negative Vomiting or Diarrhea
Genital / Urological: Negative Dysuria or Flank Pain
Endocrine: Weakness
All systems: All other systems were reviewed and were negative
Vital Signs
Temp Pulse Resp BP Pulse Ox
98.0 F 61 17 101/46 98
10/21/24 23:03 10/21/24 23:03 10/21/24 23:03 10/21/24 23:03 10/21/24 23:03
Physical Exam
Physical Exam
Constitutional: No Acute Distress and Comfortable
Eyes: No Conjunctival Hemorrhage and Sclera Anicteric
Cardiovascular: Regular Rate and S1/S2
Pulmonary: Clear
Gastrointestinal: Soft, Non Tender, Non Distended, Normal Bowel Sounds and Other (LLQ wound closed with eschar and surrounding firmness, JF drain with sero-sanguinous fluid. )
Extremities: Negative Edema
Neurological: AO x 3
Lab / Diagnostic Study Results
10/22/24 05:13
10/22/24 05:13
Abs Immat Gran (auto) 0.0 10^3/uL (0-0.05) 10/20/24 08:10
Absolute Neuts (auto) 7.6 10^3/uL (1.4-6.5) H 10/20/24 08:10
Absolute Lymphs (auto) 1.7 10^3/uL (1.2-3.4) 10/20/24 08:10
Absolute Monos (auto) 0.6 10^3/uL (0.1-0.6) 10/20/24 08:10
Absolute Basos (auto) 0.1 10^3/uL (0-0.2) 10/20/24 08:10
Immature Gran % 0.4 % (0-0.5) 10/20/24 08:10
Neutrophils % 76.3 % (42.2-75.2) H 10/20/24 08:10
Lymphocytes % 16.6 % (20.5-51.1) L 10/20/24 08:10
Monocytes % 5.7 % (1.7-9.3) 10/20/24 08:10
Eosinophils % 0.5 % (0-6) 10/20/24 08:10
Basophils % 0.5 % (0-2) 10/20/24 08:10
Lactic Acid 1.1 mmol/L (0.7-2.0) 10/20/24 08:10
Microbiology Results
Micro:
10/20/24 11:14 Blood Culture - Preliminary
Blood/Venous No Growth in 48 hours- Final report to follow
10/20/24 16:54 Wound Culture - Preliminary
Abscess No growth
Gram Stain - Preliminary
10/20/24 11:14 Throat Culture - Final
Throat/Pharynx Usual Respiratory Aamrilys
10/20/24 11:14 Blood Culture - Preliminary
Blood/Venous No Growth in 24 hours- Final report to follow
10/20/24 08:39 Influenza Types A & B (АНДРЕЙ) - Final
Nasal Swab Negative for Influenza A & B, NAAT
Negative results must be combined with clinical observations
and patient history.
Nucleic Acid Amplification test (NAAT)performed on the
[employer] platform.
10/20/24 CT a/p: Focal collection within the central and left anterior pelvic wall, slightly larger and better defined than on examination of October 06, 2024. This collection is suspicious for an abscess. Status post cholecystectomy with enlargement of
the intrahepatic bile ducts and extrahepatic bile ducts, stable, and likely physiologic after cholecystectomy. 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 No evidence for free intraperitoneal air. No evidence for abscess within the abdomen or
pelvis. No evidence for bowel obstruction.
10/20/24 CXR: No evidence of active cardiopulmonary disease.
10/06/24 CT a/p: Severe subcutaneous edema and soft tissue swelling in the lower anterior abdominal and pelvic wall suggesting SEVERE CELLULITIS. 2.8 cm DEVELOPING ABSCESS or seroma in the left lower quadrant anterior abdominal wall.
Assessment / Plan
# Post-op (lap sigmoidectomy) lower abdominal wall fluid collection- abscess vs seroma
- 10/06 Wound aerobic cx neg before abx; tx'd with Augmentin till 10/18.
- 10/20 CT slightly larger fluid collection s/p perc drain. Aerobic cx negative.
- Suspect seroma given negative cx before abx on 10/06.
Alternatively, organism is an anaerobe which do not grow in aerobic cx.
- Drainage is the optimal treatment.
- Can dc home on empiric Moxifloxacin 400mg po daily through 11/02.
# Conditions [employer] SUPPORT [employer]IST
HLD
Anxiety/depression
GERD
Migraines
AAA
Diverticulitis status post sigmoidectomy September 21, 2024
Cholecystectomy
Right knee replacement
Spinal fusion
Neck and facial surgery
Care Review
Plan reviewed with: Physician (Dr. Rao)
--- NOTE | 2024-10-22 14:03 | CM ---
CM following re: discharge planning.
Reviewed pt's chart, met with pt and pt's at bedside.
Discharge order noted. Both pt and her are aware, expressed their agreement with discharge. IMM reviewed, placed on chart, pt has a copy.
Pt is aware that [facility] will provide [facility] services upon the discharge.
Please fax discharge instructions to [facility] at [phone]
D/C plan: home with [facility] and family support. to transport.
--- NOTE | 2024-10-22 14:16 | W.DCSUMMARY ---
Discharge Summary
Discharge Data
Date of Admission: 10/20/24
Date of Discharge: 10/22/24
-
Pending Results: No
Hospital Course
Hospital course
patient is a 79-year-old female with past medical history significant for diverticulitis, GERD, hypercholesterolemia and anxiety/depression who presented to [facility] ED for evaluation of change in mental status. Patient status post sigmoidectomy and
left ureteral stent on 09/21/2024 complicated by infection of wound, cellulitis and developing abscess in the lower quadrant anterior abdominal wall. I&D by surgery and was discharged on Augmentin on 10/08/2024. Patient returns today with confusion
overnight and this morning with low-grade temp at home.
CT abdomen and pelvis shows:
Focal collection within the central and left anterior pelvic wall, slightly larger and better defined than on examination of October 06, 2024. This collection is suspicious for an abscess.
Status post cholecystectomy with enlargement of the intrahepatic bile ducts and extrahepatic bile ducts, stable, and likely physiologic after cholecystectomy.
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
No evidence for free intraperitoneal air. No evidence for abscess within the abdomen or pelvis. No evidence for bowel obstruction.
Surgery and IR consulted.
Status post ultrasound-guided abscess drained by IR
Cleared for discharge as per surgery,
Infectious disease recommending discharge on empiric Moxifloxacin 400mg po daily through 11/02.
During hospitalization patient was treated from the following
Abdominal wall abscess s/p IR Ultrasound-guided drainage .
Patient presented with change mental status and fever.
CT abdomen and pelvis shows:
Focal collection within the central and left anterior pelvic wall, slightly larger and better defined than on examination of October 06, 2024. This collection is suspicious for an abscess.
Status post cholecystectomy with enlargement of the intrahepatic bile ducts and extrahepatic bile ducts, stable, and likely physiologic after cholecystectomy.
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
No evidence for free intraperitoneal air. No evidence for abscess within the abdomen or pelvis. No evidence for bowel obstruction.
Surgery and IR consulted.
Status post ultrasound-guided abscess drained by IR
Pending drainage culture.
Pending blood cultures
Pain and nausea control
10/22
Cleared for discharge as per surgery, Infectious disease recommending discharge on empiric Moxifloxacin 400mg po daily through 11/02.
History of recurrent diverticulitis status post laparoscopic.
s/p laparoscopic sigmoidectomy on 09/21/2024.
History of anxiety.
Continue Ativan.
Confirm PDMP
GERD.
Continue PPI
History of hyperlipidemia
Continue statin
CODE STATUS: Full code
DVT prophylaxis: Lovenox
Diet: cardiac diet.
Total time spent on today's encounter was 40 minutes which included time spent in counseling the patient/family regarding diagnosis and treatment plan as listed above, goals of care, and symptom management. Case was discussed with nursing staff,
specialists, and care coordinators/case management. All labs and imaging personally reviewed by me. Remainder the time spent in detailed review of previous records, lab data, imaging, and other medical provider documentation.
Anticipated Discharge: Today
Discharge Plan
-
Patient Disposition: Home with Home Care
Discharge Diagnosis/Procedures: Abdominal wall abscess s/p IR Ultrasound-guided drainage .
History of recurrent diverticulitis status post laparoscopic.
Diet: Low Cholesterol
Activity: As tolerated
Wound Care: daily flushes 5ml NSS for JF drain
Instructions: How to care for a closed suction drain
Referrals:
Brock Pond DO [Family Provider, [facility]]
Additional Discharge Medication Instructions: Moxifloxacin 400mg po daily through 11/02.
Prescriptions:
New
sodium chloride 0.9 % (flush) [Normal Saline Flush] Syringe
5 ml IV DAILY Qty: 300 1RF
moxifloxacin 400 mg tablet
400 mg PO DAILY Qty: 12 0RF
Rx Instructions:
Moxifloxacin 400mg po daily through 11/02.
Continued
rosuvastatin 10 MG tablet
10 mg PO QPM
omeprazole 40 MG capsule,delayed release(DR/EC)
40 mg PO DAILY
melatonin 5 mg Tablet
5 mg PO HS 14 Days Qty: 14 0RF
acetaminophen 500 mg Tablet
500 mg PO BIDPRN PRN (Reason: mild pain)
estradiol 0.01 % (0.1 mg/gram) Cream
1 appful VAGINAL .TWICE A WEEK
cranberry 500 mg Capsule
500 mg PO DAILY Qty: 0
Visbiome 112.5 billion cell Capsule
1 cap PO DAILY Qty: 0
Miebo (PF) 100 % Drops
1 drp BOTH EYES TID
lorazepam 0.5 mg Tablet
0.5 mg PO HS
Discharge Orders:
Discharge Patient (As Directed); Ordered 10/22/24
Ordered By: Mamie Rao
Discharge Date and Time
Print Language: GEORGIAN
[2024-10-22 15:10] VITALS: BP 112/64
[2024-10-22 15:50] VITALS: BP 112/64
== END 2024-10-22 16:00 | disposition home health service (06) | DRG 863 ==
LOC: 2 SOUTH 15:07
PROVIDERS: Nurse Practitioner; Nurse Practitioner Family; Radiology Vascular & Interventional Radiology; ADMITTING PHYSICIAN Internal Medicine; ATTENDING PHYSICIAN General Practice; CONSULT PHYSICIAN Surgery; EMERGENCY PHYSICIAN Emergency Medicine; FAMILY PHYSICIAN Family Medicine; OTHER PHYSICIAN Internal Medicine Infectious Disease
PROC: 0W9F30Z Drainage of Abdominal Wall with Drainage Device, Percutaneous Approach (ICD-10-PCS; 2024-10-20)
DX: T81.41XA Infection following a procedure, superficial incisional surgical site, initial encounter (principal); K57.20 Diverticulitis of large intestine with perforation and abscess without bleeding; K21.9 Gastro-esophageal reflux disease without esophagitis; Z11.52 Encounter for screening for COVID-19; Y83.8 Other surgical procedures as the cause of abnormal reaction of the patient, or of later complication, without mention of misadventure at the time of the procedure
CPT/HCPCS: 10030; 70450; 71046; 74177; 80048; 80053; 81003; 83605; 85025; 85027; 87040; 87070; 87205; 87502; 87811; 93005; 99285; C1729; C1769; Q9967

== ENCOUNTER → 2024-10-27 06:52 | Outpatient (REF) | payer MEDICARE, OTHER, SELFPAY ==
[2024-10-27 07:27] VITALS: BP 139/68; BP_SYST 101
[2024-10-27 07:50] VITALS: BP 122/52; BP_SYST 79
[2024-10-27 08:01] VITALS: BP 122/52
== END ==
LOC: RADI 06:52
PROVIDERS: ATTENDING PHYSICIAN Surgery; FAMILY PHYSICIAN Family Medicine
DX: Z46.82 Encounter for fitting and adjustment of non-vascular catheter (principal); K65.1 Peritoneal abscess
CPT/HCPCS: 49424; 76080

== ENCOUNTER → 2024-11-10 06:57 | Outpatient (REF) | payer MEDICARE, OTHER, SELFPAY | LOC: RAD 06:57 | PROVIDERS: ATTENDING PHYSICIAN Surgery; FAMILY PHYSICIAN Family Medicine | DX: L76.34 Postprocedural seroma of skin and subcutaneous tissue following other procedure (principal) | CPT/HCPCS: 74177; Q9967 ==

== ENCOUNTER → 2025-01-21 12:29 | Outpatient (REF) | payer MEDICARE, OTHER, SELFPAY | LOC: RAD 12:29 | PROVIDERS: ATTENDING PHYSICIAN Family Medicine | DX: M79.672 Pain in left foot (principal); M79.641 Pain in right hand; M79.642 Pain in left hand | CPT/HCPCS: 73130; 73630 ==

== ENCOUNTER → 2025-01-25 07:20 | Outpatient (REF) | payer MEDICARE, OTHER, SELFPAY ==
[2025-01-25 08:14] LABS: Hematocrit 37.3 % (37.0-47.0); Hemoglobin 12.5 g/dL (12.0-16.0); Mean Corp Hgb Conc. 33.5 g/dL (33.0-37.0); Mean Corpuscular Volume 92.3 fL (81.0-99.0); Nucleated Red Blood Cells % 0 %; Platelet Count 204 10^3/uL (130-400); Red Cell Dist. Width 13.8 % (11.5-14.5)
[2025-01-25 08:39] LABS: ALT (SGPT) 20 U/L (0-35); AST (SGOT) 25 U/L (14-36); Albumin 4.8 g/dl (3.5-5.0); Alkaline Phosphatase 63 U/L (38-126); Blood Urea Nitrogen 18 mg/dl (7-17); Calcium 9.9 mg/dl (8.4-10.2); Carbon Dioxide 26 mmol/L (22-30); Chloride 102 mmol/L (98-107); Glucose 98 mg/dl (70-99); HDL Cholesterol 73 mg/dl; LDL Cholesterol, Calculated 89 mg/dl; Potassium 4.5 mmol/L (3.5-5.1); Sodium 136 mmol/L (135-145); Total Protein 7.4 g/dl (6.3-8.2); Uric Acid 5.7 mg/dl (2.5-6.2); Very Low Density Lipoprotein 31 mg/dl (0-30); eGFR > 60.00
[2025-01-25 08:49] LABS: C-Reactive Protein < 5.00 mg/L (0.0-10.00)
[2025-01-25 09:16] LABS: TSH 2.97 uIU/ml (0.47-4.68)
[2025-01-25 09:48] LABS: Vitamin D, 25-OH*** 32.9 ng/mL (30-80)
[2025-01-25 12:05] LABS: Glycohemoglobin (HgbA1c) 5.6 % (4.0-5.6)
[2025-01-25 15:22] LABS: Lyme Antibody Screen, EIA Negative (Negative)
[2025-01-25 15:35] LABS: Rheumatoid Agglutinin Positive (<10 IU)
[2025-01-25 15:36] LABS: Rheumatoid Agg. Semi-quant 32 IU
[2025-01-27 06:21] LABS: CCP Antibody IgG/IgA 11 Units (0-19)
[2025-01-27 20:42] LABS: ANA, IgG Reflex to HEp-2 None Detected (None Detected)
== END ==
LOC: REG 07:20
PROVIDERS: ATTENDING PHYSICIAN Family Medicine
DX: R73.01 Impaired fasting glucose (principal); I10 Essential (primary) hypertension; I70.0 Atherosclerosis of aorta; E78.2 Mixed hyperlipidemia; M25.50 Pain in unspecified joint; M79.641 Pain in right hand; M79.642 Pain in left hand; E55.9 Vitamin D deficiency, unspecified
CPT/HCPCS: 36415; 80053; 80061; 82306; 83036; 84443; 84550; 85025; 85652; 86038; 86140; 86200; 86430; 86431; 86618

== ENCOUNTER 2025-02-10 17:46 | Emergency (ER) | payer MEDICARE, OTHER, SELFPAY ==
[2025-02-10 17:50] VITALS: BP 179/79
--- NOTE | 2025-02-10 20:56 | ED.GENMED ---
History of Present Illness
General
Chief Complaint: Musculo-Skeletal Complaint
Source: patient
Exam Limitations: none
Time Seen by Provider: 02/10/25 19:53
Nursing documentation reviewed up to this point in time: agreed with
History of Present Illness
History of Present Illness:
Patient is a 79-year-old female who has chronic neck pain presents with worsening neck pain. Starting 3 weeks ago she started to have worsening neck pain. She has been seen by her family doctor and was placed on steroids. She was just started on
gabapentin last night without relief. She reports however couple days ago she was gardening and using greta looking up trimming a [place] and ever since that has had increasing worsening neck pain. She denies any numbness tingling /weakness in her
upper extremities. She denies any weakness in her arms or hands she denies any sharp shooting radiation of pain. Pain is worse in her neck with range of motion,turning left and right looking up or down. She denies any chest pain shortness of
breath.
Past History
Past History
ED Past Medical History: Cancer (Skin CA), GERD, Hypercholesterolemia, Psychiatric (Anxiety, Depression, ) and Other (Arthritis, Diverticulitis, Back pain, Tinging arms and legs. Migraines, Spinal cyst, AAA, UTI, Rosacea)
ED Past Surgical History: Bowel resection (Laparoscopic sigmoidectomy September 21, 2024), Cholecystectomy, Gynecological (Tubal, ), Orthopedic (Right knee replacement, Neck and facial surgery, Spinal fusion) and Other
Social History
Tobacco: Non-smoker
Alcohol: None
Drug: None
Personal:
Living: with family
Employment: Retired
Family History
Family History: Other (Noncontributory)
Phy Exam
General Physical Exam
General Presentation: no apparent distress
General age: appears stated age
General Skin: warm and dry
General Habitus: normal
General Mental: alert
General Hydration: appears well hydrated
Neurological Exam
Neurological Exam: alert, oriented x3 and other (Normal intact sensation and strength in bilateral extremities)
Musculoskeletal Exam
Musculoskeletal Exam: other (Tender throughout the posterior cervical muscles; positive discomfort with range of motion)
Skin Exam
Skin Exam: normal color and warm/dry
Psychiatric Exam
Psychiatric Exam: normal mood/affect
Course
Orders/Labs/Results
Orders:
Orders
02/10/25 20:54
Acetaminophen [Tylenol] 1,000 mg PO NOW STA
Ketorolac [Toradol] 30 mg IM NOW STA
Lidocaine [Lidocaine 4% Patch] 1 patch TOPICAL NOW STA
Apply Lidocaine patch(s) to:: neck right upper back
diazePAM [Valium Injection] 5 mg IM NOW STA
Vital Signs
Initial and Last Documented VS:
Initial Vital Signs
Temp Pulse Resp BP Pulse Ox
98.9 F 75 18 179/79 98
02/10/25 17:50 02/10/25 17:50 02/10/25 17:50 02/10/25 17:50 02/10/25 17:50
Last Documented Vital Signs
Temp Pulse Resp BP Pulse Ox
98.9 F 70 16 154/74 97
02/10/25 17:50 02/10/25 21:56 02/10/25 21:56 02/10/25 21:56 02/10/25 21:56
MDM/Problems Addressed
Differential Diagnosis Includes:
Not limited to muscular neck pain
MDM/Problems Addressed:
Symptoms are consistent with muscular back pain. She has chronic back pain however after gardening this is likely an exacerbation of her chronic back pain. She has pain worse with movement tender to palpation no neurological deficits. Patient was
initially given gabapentin however she has no radicular pain she had relief from the Valium I told her to stop the gabapentin and start Valium will give a small prescription every 8 hours. I did review with patient that this medication is sedating
however she tolerated it well here in the ER and is very awake and alert and had good relief. She may also take Tylenol if needed and may alternate with ibuprofen (patient has normal renal function from January 25, 2025)
Chronic conditions affecting care:
Chronic neck pain
*Pulse Oximetry
SaO2: 98
Oxygen Mode of Delivery: Room air
Patient hypoxic: no
*Critical Care Note
Total Time (30-74mins, 75-104mins- exclusive of procedures): Not Applicable
ED Attending Note
-
Portions of this chart may have been created with voice recognition software.� Occasional wrong word or��sound alike� substitutions may have occurred due to the inherent limitations of voice recognition software.
Discharge Plan
Departure
Patient Disposition: Home (Routine Discharge)
Date of Disposition: 02/10/25
Time of Disposition: 21:57
Patient with high blood pressure during this ER visit?: Yes
Condition: Fair
Covid-19: Not Applicable
Discharge Problem:
Neck pain
Instructions: Muscle and Bone Pain (DC), Neck pain - ED (DC)
Prescriptions:
New
diazepam [Valium] 5 mg tablet
5 mg PO TID PRN (Reason: muscle spasm) Qty: 10 0RF
No Action
rosuvastatin 10 MG tablet
10 mg PO QPM
omeprazole 40 MG capsule,delayed release(DR/EC)
40 mg PO DAILY
melatonin 5 mg Tablet
5 mg PO HS 14 Days Qty: 14 0RF
acetaminophen 500 mg Tablet
500 mg PO BIDPRN PRN (Reason: mild pain)
estradiol 0.01 % (0.1 mg/gram) Cream
1 appful VAGINAL .TWICE A WEEK
cranberry 500 mg Capsule
500 mg PO DAILY Qty: 0
Visbiome 112.5 billion cell Capsule
1 cap PO DAILY Qty: 0
Miebo (PF) 100 % Drops
1 drp BOTH EYES TID
lorazepam 0.5 mg Tablet
0.5 mg PO HS
sodium chloride 0.9 % (flush) [Normal Saline Flush] Syringe
5 ml IV DAILY Qty: 300 1RF
moxifloxacin 400 mg tablet
400 mg PO DAILY Qty: 12 0RF
Rx Instructions:
Moxifloxacin 400mg po daily through 11/02.
Referrals:
Brock Pond DO [Family Provider, Family Practice]
Activity Restrictions/Additional Instructions:
As discussed warm moist heat to your neck several times a day. You may take Tylenol and alternate with ibuprofen for discomfort. A muscle laxer, Valium was sent to pharmacy take only as directed. 5 mg every 8 hours only as needed. This will
cause drowsiness. No driving or drinking alcohol with taking this medication. In addition please do NOT take your lorazepam while taking this medication.
Follow-up with your family doctor in the next 2 days .return if any worsening of symptoms
Interventions
Interventions:
*Risk Screen - Suicide Last Done: 02/10/25 17:50
*General Assessment Last Done: 02/10/25 17:50
*Neglect/Abuse Screening Last Done: 02/10/25 17:50
*ED- Fall Risk Assessment Last Done: 02/10/25 17:50
*ED COVID-19 Vaccine History Last Done: 02/10/25 17:50
ED-Musculoskeletal Assessment Last Done: 02/10/25 21:00
Discharge Date and Time
Print Language: HUNGARIAN
[2025-02-10] MEDS: VALIUM INJECTION 5 MG IM (21:08)
[2025-02-10] MEDS: TYLENOL 1000 MG PO (21:08)
[2025-02-10] MEDS: LIDOCAINE 4% PATCH 1 PATCH TOPICAL (21:08)
[2025-02-10] MEDS: TORADOL 30 MG IM (21:08)
[2025-02-10 21:56] VITALS: BP 154/74
== END 2025-02-10 22:12 | disposition home or self-care (01) ==
LOC: EMR 17:46
PROVIDERS: EMERGENCY PHYSICIAN Emergency Medicine; FAMILY PHYSICIAN Family Medicine
DX: M54.2 Cervicalgia (principal); G89.29 Other chronic pain; E78.00 Pure hypercholesterolemia, unspecified; Z86.79 Personal history of other diseases of the circulatory system; Z90.49 Acquired absence of other specified parts of digestive tract
CPT/HCPCS: 96372; 99284

== ENCOUNTER → 2025-02-15 11:56 | Outpatient (REF) | payer MEDICARE, OTHER, SELFPAY | LOC: RAD 11:56 | PROVIDERS: ATTENDING PHYSICIAN Family Medicine | DX: S99.912A Unspecified injury of left ankle, initial encounter (principal) | CPT/HCPCS: 73610 ==

== ENCOUNTER → 2025-03-26 11:35 | Outpatient (REF) | payer MEDICARE, OTHER, SELFPAY ==
[2025-03-26 18:14] LABS: Urine Character Slightly Cloudy (Clear)
[2025-03-26 19:14] LABS: Urine Squamous Cell 21-25 /LPF (Few)
[2025-03-26 19:15] LABS: Urine White Cell 30-40 /HPF (0-5)
== END ==
LOC: CLAB 11:35
PROVIDERS: ATTENDING PHYSICIAN Family Medicine
DX: R39.9 Unspecified symptoms and signs involving the genitourinary system (principal)
CPT/HCPCS: 81003; 81015; 87077; 87086; 87186

== ENCOUNTER → 2025-04-12 10:11 | Outpatient (REF) | payer MEDICARE, OTHER, SELFPAY ==
[2025-04-12 10:55] LABS: Hematocrit 36.7 % (37.0-47.0); Hemoglobin 11.9 g/dL (12.0-16.0); Mean Corp Hgb Conc. 32.4 g/dL (33.0-37.0); Mean Corpuscular Volume 92.0 fL (81.0-99.0); Nucleated Red Blood Cells % 0 %; Platelet Count 208 10^3/uL (130-400); Red Cell Dist. Width 14.5 % (11.5-14.5)
[2025-04-12 11:44] LABS: ALT (SGPT) 18 U/L (0-35); AST (SGOT) 23 U/L (14-36); Albumin 4.7 g/dl (3.5-5.0); Alkaline Phosphatase 62 U/L (38-126); Blood Urea Nitrogen 19 mg/dl (7-17); Calcium 9.7 mg/dl (8.4-10.2); Carbon Dioxide 26 mmol/L (22-30); Chloride 104 mmol/L (98-107); Glucose 84 mg/dl (70-99); Potassium 4.8 mmol/L (3.5-5.1); Sodium 135 mmol/L (135-145); Total Protein 7.4 g/dl (6.3-8.2); eGFR > 60.00
[2025-04-12 11:51] LABS: C-Reactive Protein < 5.00 mg/L (0.0-10.00)
== END ==
LOC: REG 10:11
PROVIDERS: ATTENDING PHYSICIAN Internal Medicine; FAMILY PHYSICIAN Family Medicine
DX: Z51.81 Encounter for therapeutic drug level monitoring (principal); M35.9 Systemic involvement of connective tissue, unspecified; M06.4 Inflammatory polyarthropathy
CPT/HCPCS: 36415; 80053; 85025; 85652; 86140

== ENCOUNTER → 2025-04-14 10:43 | Outpatient (REF) | payer MEDICARE, OTHER, SELFPAY | LOC: EMG 10:43 | PROVIDERS: ATTENDING PHYSICIAN Family Medicine | DX: R20.2 Paresthesia of skin (principal); R20.0 Anesthesia of skin | CPT/HCPCS: 95886; 95911 ==

== ENCOUNTER → 2025-04-21 11:53 | Outpatient (REF) | payer MEDICARE, OTHER, SELFPAY | LOC: RAD 11:53 | PROVIDERS: ATTENDING PHYSICIAN Family Medicine | DX: R10.32 Left lower quadrant pain (principal) | CPT/HCPCS: 74177; Q9967 ==